=== PATIENT | female | born 1950 | race Caucasian/White ===

== ENCOUNTER 2020-10-31 18:00 | Emergency (ER) | payer MEDICARE, OTHER, SELFPAY ==
[2020-10-31 18:11] VITALS: BP 157/84; PULSE 91; RESP 18; TEMP 36.6; O2SAT 98; BMI 34.0
--- NOTE | 2020-10-31 18:40 | CTR_ITS ---
PROCEDURE INFORMATION: Exam: CT Head Without Contrast Exam date and time: 10/31/2020 6:48 PM Age: 70 years old Clinical indication: Dizziness and syncope and collapse TECHNIQUE: Imaging protocol: Computed tomography of the head without contrast. Radiation optimization: All CT scans at this facility use at least one of these dose optimization techniques: automated exposure control; mA and/or kV adjustment per patient size (includes targeted exams where dose is matched to clinical indication); or iterative reconstruction. COMPARISON: No relevant prior studies available. RADIATION DOSE METRICS: Total DLP (mGy-cm): 790.07 FINDINGS: Brain: There is marked cerebral atrophy. No intracranial hemorrhage. No intracranial mass. No midline shift of brain. No acute brain ischemia. [place] matter and white matter differentiation is preserved. Cerebral ventricles: No ventriculomegaly. Bones/joints: Unremarkable. No acute fracture. Paranasal sinuses: Visualized sinuses are unremarkable. No fluid levels. Mastoid air cells: Visualized mastoid air cells are well aerated. Vasculature: Intracranial atherosclerosis. Soft tissues: Unremarkable. CT/CT head wo con* [id number] IMPRESSION: 1. No acute intracranial abnormality. 2. Senescent brain changes. Radiation Dose CTDIVOL = (mGy): DLP = 790.07 (mGy-cm)
--- NOTE | 2020-10-31 18:40 | ECG_ITS ---
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 Measurements Intervals [place] Rate: 79 P: 20 ME: 173 QRS: -8 QRSD: 100 T: -8 QT: 401 QTc: 462 Interpretive Statements SINUS RHYTHM MODERATE VOLTAGE CRITERIA FOR LVH, CONSIDER NORMAL VARIANT [MEETS CRITERIA IN ONE OF: R(aVL), S(V1), R(V5), R(V5/V6)+S(V1)] POSSIBLE ANTERIOR MYOCARDIAL INFARCTION , OF INDETERMINATE AGE [30 ms Q WAVE IN V3/V4, OR R < 0.2 mV IN V4] INFERIOR MYOCARDIAL INFARCTION , OF INDETERMINATE AGE [40+ ms Q WAVE AND/OR ST/T ABNORMALITY IN II/aVF] Compared to ECG 10/31/2020 18:24:38 No significant changes Electronically Signed On 11-02-2020 11:00:04 CONSULTING IT ARCHITECT by Jameel Haynes M.D. [id number]
--- NOTE | 2020-10-31 18:40 | XR_ITS ---
WS: [id number] Portable AP upright chest, 10/31/2020 Clinical Data: Syncope Comparison: None. Findings: No nodules, masses or effusions are seen. The heart is slightly enlarged. The pulmonary vas cularity is not increased. No pneumonia or pneumothorax is seen. The aortic arch and descending aorta show calcification and tortuosity. XR/XR chest 1V portable [id number] Impression: Atherosclerosis and cardiomegaly.
[2020-10-31 19:23] LABS: Basophils % 0.4 %; Eosinophils % 0.5 %; Hematocrit 43.1 % (37.0-47.0); Hemoglobin 13.7 g/dL (11.5-15.3); Lymphocytes # 1.7 10^3/uL (0.8-4.8); Lymphocytes % 20.5 %; Mean Corpuscular HGB Conc 31.8 g/dL (30.0-36.0); Mean Corpuscular Hemoglobin 26.2 pg (28.0-34.0); Mean Corpuscular Volume 82.4 fL (81-99); Monocytes # 0.6 10^3/uL (0.2-0.9); Monocytes % 7.6 %; Neutrophils # 5.86 10^3/uL (1.8-7.7); Neutrophils % 70.8 %; Nucleated Red Blood Cells % 0 %; Platelet Count 379 10^3/cmm (130-400); Red Blood Count 5.23 10^6/uL (4.1-5.3); Red Cell Distribution Width 14.6 % (12.1-15.1); White Blood Count 8.3 10^3/uL (4.0-10.0)
[2020-10-31 19:30] VITALS: BP 136/67; BP 141/57; BP 154/66; PULSE 100; PULSE 84; PULSE 92
[2020-10-31 20:12] LABS: INR 0.89 (0.8-1.2); Troponin(5th) Baseline 10 ng/L (0-10)
[2020-10-31 20:20] LABS: Alanine Aminotransferase 55 U/L (0-33); Albumin Level 4.6 g/dL (3.5-5.2); Alkaline Phosphatase 80 IU/L (35-105); Anion Gap 16.8 (5-19); Aspartate Amino Transferase 40 U/L (0-32); Blood Urea Nitrogen 19 mg/dL (8-23); Calcium 9.9 mg/dL (8.5-10.5); Carbon Dioxide 28 mmol/L (22-29); Chloride 92 mmol/L (98-107); Glomerular Filtration Rate 83.2 mL/min (90-130); Glucose 148 mg/dL (65-115); NT Pro B Type Natriuretic Pept 257 pg/mL (0-125); Osmolality Calculated 281 mOsm/kg (285-295); Potassium 3.8 mmol/L (3.5-5.1); Sodium 133 mmol/L (136-145); Total Bilirubin 0.2 mg/dL (0.15-1.2); Total Protein 7.6 g/dL (6.6-8.7)
[2020-10-31 20:22] LABS: D Dimer 4.37 ug/mIFEU (0-0.59)
[2020-10-31 20:30] VITALS: BP 150/68; PULSE 85; RESP 21; O2SAT 94
--- NOTE | 2020-10-31 20:31 | CTR_ITS ---
PROCEDURE INFORMATION: Exam: CT Angiography Chest With Contrast Exam date and time: 10/31/2020 8:33 PM Age: 70 years old Clinical indication: Abnormal findings; Abnormal diagnostic tests; Elevated d-dimer; Prior surgery; Surgery type: Gb; Patient HX: Syncopal episode. Elevated d dimer. ; Additional info: Syncope, SOB TECHNIQUE: Imaging protocol: Computed tomographic angiography of the chest with contrast. 3D rendering (Not supervised by radiologist): MIP and/or 3D reconstructed images were created by the technologist. Radiation optimization: All CT scans at this facility use at least one of these dose optimization techniques: automated exposure control; mA and/or kV adjustment per patient size (includes targeted exams where dose is matched to clinical indication); or iterative reconstruction. Contrast material: VISI 320; Contrast volume: 64 ml; Contrast route: INTRAVENOUS (IV); COMPARISON: CR XR chest 1V portable [id number] 10/31/2020 7:04 PM RADIATION DOSE METRICS: Total DLP (mGy-cm): 471.81 FINDINGS: Pulmonary arteries: Pulmonary artery evaluation is diagnostic through the proximal segmental pulmonary arterial branch level. No pulmonary artery filling defects. Pulmonary artery diameter is unremarkable. Aorta: Unremarkable. No aortic aneurysm. No aortic dissection. Lungs: Mild to moderate emphysematous changes of lungs. No focal pulmonary consolidation. Minimal dependent ground-glass opacities posterior lower lobes bilaterally. No central airway lesion. Mild diffuse reticular interstitial lung change. No peripheral honeycombing. Pleural spaces: Unremarkable. No pneumothorax. No pleural effusion. Heart: Unremarkable. No cardiomegaly. No pericardial effusion. Mediastinal space: Mild hiatal hernia. Lymph nodes: Unremarkable. No enlarged lymph nodes. Gallbladder and bile ducts: Cholecystectomy. Kidneys and ureters: Cortical atrophy of both kidneys. Small simple left renal upper pole cortical cyst. Bones/joints: Unremarkable. No acute fracture. Soft tissues: Unremarkable. CT/CT angio chest PE protcl [id number] IMPRESSION: Negative for pulmonary embolism. COMMENTS: Consistent with the [employer]'s Incidental Findings Committee white paper (J Am Yolanda Radiol 2018): Any incidental renal lesion less than 1 cm or classified as too small to characterize, or any incidental cystic renal lesion characterized as simple-appearing, is likely benign. No follow-up imaging is recommended for these lesions per consensus recommendations based on imaging criteria. Radiation Dose CTDIVOL = (mGy): DLP = 471.81 (mGy-cm)
--- NOTE | 2020-10-31 20:40 | ECG_ITS ---
[facility] Test Date: 2020-10-31 Pat Name: Kenisha Lopez Department: Room: Gender: Female Acute Dialysis Nurse: : 1950 Requested By: Gonzalez Mcneal I Order Number: [id number] Fred MD: Mag Mcintosh M.D. Measurements Intervals [place] Rate: 91 P: 20 WI: 171 QRS: -1 QRSD: 90 T: -11 QT: 359 QTc: 443 Interpretive Statements SINUS RHYTHM MODERATE VOLTAGE CRITERIA FOR LVH, CONSIDER NORMAL VARIANT [MEETS CRITERIA IN ONE OF: R(aVL), S(V1), R(V5), R(V5/V6)+S(V1)] ANTERIOR MYOCARDIAL INFARCTION [40+ ms Q WAVE AND/OR ST/T ABNORMALITY IN V3/V4], OF INDETERMINATE AGE INFERIOR MYOCARDIAL INFARCTION [40+ ms Q WAVE AND/OR ST/T ABNORMALITY IN II/aVF], OF INDETERMINATE AGE No previous ECG available for comparison Electronically Signed On 10-31-2020 20:26:31 BRAILLE CODER by Mag Mcintosh M.D. [id number]
[2020-10-31] MEDS: iodixanol 320 mg/mL 100mL Btl IV (20:52)
[2020-10-31 21:04] LABS: Urine Appearance SL Hazy (CLEAR); Urine Color Yellow (Yellow)
[2020-10-31 21:05] LABS: Add Urine Microscopic? YES; Bilirubin Urine Neg (Negative); Blood Urine Neg (Negative); Glucose Urine UA Norm (Normal); Ketones Urine 1+ (Negative); Leukocyte Esterase Urine 2+ (Negative); Nitrate Urine Negative (Negative); Protein Urine Neg (Negative); Specific Gravity, Urine 1.015 (1.005-1.030); Urobilinogen Urine Norm (Negative); pH Urine 9 (5-7)
[2020-10-31 21:20] LABS: Bacteria Urine 3+ /hpf; RBC Urine 0-4 /hpf (0-2); Squamous Epithelial Cell Urine 0-4 /hpf (0-5)
[2020-10-31 21:21] LABS: Add Urine Culture? Yes; Hyaline Casts Urine 0-4 /lpf
[2020-10-31 21:30] VITALS: BP 127/68; PULSE 82; RESP 18; O2SAT 94
--- NOTE | 2020-10-31 21:45 | PC.NURSE ---
EKG done at 2145 and shown to ER doctor
[2020-10-31 22:03] LABS: Troponin 5 2HR 8.85 ng/L (0-10); Troponin 5 2HR Delta -1.15 ABS# (0-10)
--- NOTE | 2020-10-31 22:18 | ED_ITS ---
HPI - Syncope General: Chief Complaint: Syncope Stated Complaint: syncope Time Seen by Provider: 10/31/20 18:29 Source: patient and family (Daughter) Mode of arrival: ambulatory Limitations: no limitations History of Present Illness: HPI narrative: This 64-year-old female patient with a history of hypertension and diabetes was at her daughter's workplace when she started to feel unwell. The patient states that she told her daughter that she was feeling unwell and needed to sit down because she thought she might pass out but apparently she never verbalized those words and when though she thought she did. Her daughter, who had her back turned to the patient started hearing some grunting sounds on when she turned around she saw her mother was unresponsive and had an episode of urinary incontinence. The whole episode lasted about 1 to 2 minutes. When the mom woke up she was feeling very tired. The patient denies any chest pain prior to the episode or any palpitations. She denies any recent illness, denies any nausea or vomiting, denies any new medication, denies drug use. She is back to her baseline other than being really tired. MD complaint: loss of consciousness Duration of episode: 2 -: minutes(s) Description of event: incontinence Prodromal symptoms: lightheaded Context: at rest Injuries sustained associated with event: none Associated symptoms: Deny abdominal pain, chest pain, fever(s), headache(s), nausea, short of breath or vertigo Treatments prior to arrival: none Review of Systems General: Reports: 10 or more systems reviewed and unremarkable except in HPI and below Const: Denies: fever(s) Eyes: Denies: change in vision or blurry vision ENMT: Denies: throat pain, enlarged tonsils, odynophagia, hoarseness, mouth pain or swelling of lips/tongue Card: Denies: chest pain Resp: Denies: dyspnea, productive cough or non-productive cough GI: Denies: abdominal pain or nausea : Denies: flank pain, difficulty voiding, dysuria, urinary frequency, urinary urgency or urinary hesitancy Musc: Denies: neck pain, back pain or extremity swelling Skin/Breast: Denies: rash, pruritus or erythema Neuro: Denies: headache(s) or vertigo Endo: Denies: polyuria, polydipsia or tired all the time Physical Exam Const: COMMON NORMALS: no acute distress, average body habitus, patient oriented x3, no limitations, healthy appearing, alert and well nourished HENMT: COMMON NORMALS: normocephalic, atraumatic and moist oral mucous membranes HEAD & SCALP: normocephalic and atraumatic Neck/C-Spine: COMMON NORMALS: full ROM, supple, no meningeal signs, no JVD and No carotid bruits Resp: COMMON NORMALS: normal respiratory effort, No retractions, No use of accessory muscles, clear to auscultation bilaterally and percussion normal AUSCULTATION: clear to auscultation bilaterally PERCUSSION: percussion normal Cardio: COMMON NORMALS: no JVD, regular rate, regular rhythm, S1 normal heart sound present, S2 normal heart sound present, No gallops present (Cardio), No clicks present (Cardio), No murmurs present (Cardio), No rub (Cardio) and Peripheral pulses 2+ throughout RATE: regular rate RHYTHM: regular rhythm HEART SOUNDS: S1 normal heart sound present and S2 normal heart sound present PERIPHERAL PULSES: Peripheral pulses 2+ throughout GI: COMMON NORMALS: Normal to inspection, nondistended, normoactive bowel sounds present, Soft to palpation, non-tender, No hepatosplenomegaly present, no masses and no bruits PALPATION: Yes Soft to palpation and Yes No hepatosplenomegaly present Extremity: COMMON NORMALS: normal to inspection, full ROM, capillary refill normal, no calf tenderness and no pedal edema Neuro: COMMON NORMALS: patient oriented x3 SENSORIUM/ORIENTATION: Yes alert MENINGEAL SIGNS: Yes no meningeal signs Skin: COMMON NORMALS: no rashes or lesions noted, no wounds, turgor normal, no jaundice, no petechiae and no mottling GENERAL SKIN EXAM: no rashes or lesions noted and turgor normal Course Reevaluation(s): Reevaluation #1: Discussed her lab and imaging findings with her. I had been updating her throughout her ED stay on the results of her lab and imaging findings. Negative CTA, negative high-sensitivity troponin x2. I believe her symptoms are very likely due to a seizure since she had urinary incontinence. Since this is her first episode and evaluation is unremarkable we will not pursue it further. However she is advised that if she has another episode she would likely need to be started on antiepileptics as well as more detailed work- up including an EEG. UA is suggestive of a UTI. She is given a dose of intravenous ceftriaxone in the emergency department and discharged home on oral antibiotic. She voiced understanding and is in agreement with the plan. Time: 22:19 Vital Signs: Vital signs: Vital Signs Temperature 97.9 F 10/31/20 18:11 Pulse Rate 84 10/31/20 19:30 Respiratory Rate 18 10/31/20 18:11 Blood Pressure 141/57 10/31/20 19:30 Pulse Oximetry 98 10/31/20 18:11 MDM - Syncope MDM Narrative: Medical decision making narrative: 70-year-old female patient who was brought into the emergency department after an episode of syncope. From the description of the surrounding events I believe the patient may have had a seizure. She has no prior history of seizures. She denies any new medication or drug use. Evaluation in the emergency department was unremarkable other than she has a UTI. She was given a dose of intravenous ceftriaxone in the emergency department and discharged home on oral Augmentin. She is advised that if she has repeat episodes she may need further work-up and possibly antiepileptics. Medical Records: Attestation: I reviewed the patient's medical records. Lab Data: Attestation: I reviewed the patient's lab results. Labs: Lab Results 10/31/20 10/31/20 10/31/20 Range/Units 19:15 19:15 19:15 WBC 8.3 (4.0-10.0) 10^3/ uL RBC 5.23 (4.1-5.3) 10^6/u L Hgb 13.7 (11.5-15.3) g/dL Hct 43.1 (37.0-47.0) % MCV 82.4 (81-99) fL MCH 26.2 L (28.0-34.0) pg MCHC 31.8 (30.0-36.0) g/dL RDW 14.6 (12.1-15.1) % Plt Count 379 (130-400) 10^3/c mm MPV 10.0 (7.4-10.4) fL Neut % (Auto) 70.8 % Lymph % (Auto) 20.5 % Kent % (Auto) 7.6 % Eos % (Auto) 0.5 % Baso % (Auto) 0.4 % Neut # (Auto) 5.86 (1.8-7.7) 10^3/u L Lymph # (Auto) 1.7 (0.8-4.8) 10^3/u L Kent # (Auto) 0.6 (0.2-0.9) 10^3/u L Eos # (Auto) 0.0 (0.0-0.8) 10^3/u L Baso # (Auto) 0.0 (0.0-0.1) 10^3/u L Nucleated RBC % (a uto) 0 % Nucleated RBCs # 0.0 /100WBC PT 12.40 (12.1-14.9) SECO NDS INR 0.89 (0.8-1.2) D-Dimer 4.37 H (0-0.59) ug/mIFE U Sodium 133 L (136-145) mmol/L Potassium 3.8 (3.5-5.1) mmol/L Chloride 92 L (98-107) mmol/L Carbon Dioxide 28 (22-29) mmol/L Anion Gap 16.8 (5-19) BUN 19 (8-23) mg/dL Creatinine 0.7 (0.5-0.9) mg/dL GFR Calculation 83.2 L (90-130) mL/min Glucose 148 H (65-115) mg/dL Calculated Osmolal ity 281 L (285-295) mOsm/k g Calcium 9.9 (8.5-10.5) mg/dL Total Bilirubin 0.2 (0.15-1.2) mg/dL AST 40 H (0-32) U/L ALT 55 H (0-33) U/L Alkaline Phosphata se 80 (35-105) IU/L Troponin T Baselin e (0-10) ng/L Troponin T 120 Min [place] (0-10) ng/L Delta Troponin T (0-10) ABS# NT-Pro-B Natriuret Pep 257 H (0-125) pg/mL Total Protein 7.6 (6.6-8.7) g/dL Albumin 4.6 (3.5-5.2) g/dL Globulin 3.0 (1.3-4.6) g/dL Urine Color (Yellow) Urine Appearance (CLEAR) Urine pH (5-7) Ur Specific Gravit y (1.005-1.030) Urine Protein (Negative) Urine Glucose (UA) (Normal) Urine Ketones (Negative) Urine Blood (Negative) Urine Nitrate (Negative) Urine Bilirubin (Negative) Urine Urobilinogen (Negative) mg/dL Ur Leukocyte Marlin ase (Negative) Urine RBC (0-2) /hpf Urine WBC (0-5) /hpf Ur Squamous Epith Cells (0-5) /hpf Amorphous Sediment Urine Bacteria (NONE) /hpf Hyaline Casts /lpf 10/31/20 10/31/20 10/31/20 Range/Units 19:15 19:41 21:16 WBC (4.0-10.0) 10^3/ uL RBC (4.1-5.3) 10^6/u L Hgb (11.5-15.3) g/dL Hct (37.0-47.0) % MCV (81-99) fL MCH (28.0-34.0) pg MCHC (30.0-36.0) g/dL RDW (12.1-15.1) % Plt Count (130-400) 10^3/c mm MPV (7.4-10.4) fL Neut % (Auto) % Lymph % (Auto) % Kent % (Auto) % Eos % (Auto) % Baso % (Auto) % Neut # (Auto) (1.8-7.7) 10^3/u L Lymph # (Auto) (0.8-4.8) 10^3/u L Kent # (Auto) (0.2-0.9) 10^3/u L Eos # (Auto) (0.0-0.8) 10^3/u L Baso # (Auto) (0.0-0.1) 10^3/u L Nucleated RBC % (a uto) % Nucleated RBCs # /100WBC PT (12.1-14.9) SECO NDS INR (0.8-1.2) D-Dimer (0-0.59) ug/mIFE U Sodium (136-145) mmol/L Potassium (3.5-5.1) mmol/L Chloride (98-107) mmol/L Carbon Dioxide (22-29) mmol/L Anion Gap (5-19) BUN (8-23) mg/dL Creatinine (0.5-0.9) mg/dL GFR Calculation (90-130) mL/min Glucose (65-115) mg/dL Calculated Osmolal ity (285-295) mOsm/k g Calcium (8.5-10.5) mg/dL Total Bilirubin (0.15-1.2) mg/dL AST (0-32) U/L ALT (0-33) U/L Alkaline Phosphata se (35-105) IU/L Troponin T Baselin e 10 (0-10) ng/L Troponin T 120 Min [place] 8.85 (0-10) ng/L Delta Troponin T -1.15 L (0-10) ABS# NT-Pro-B Natriuret Pep (0-125) pg/mL Total Protein (6.6-8.7) g/dL Albumin (3.5-5.2) g/dL Globulin (1.3-4.6) g/dL Urine Color Yellow (Yellow) Urine Appearance Sl hazy (CLEAR) Urine pH 9 H (5-7) Ur Specific Gravit y 1.015 (1.005-1.030) Urine Protein Neg (Negative) Urine Glucose (UA) Norm (Normal) Urine Ketones 1+ H (Negative) Urine Blood Neg (Negative) Urine Nitrate Negative (Negative) Urine Bilirubin Neg (Negative) Urine Urobilinogen Norm (Negative) mg/dL Ur Leukocyte Marlin ase 2+ H (Negative) Urine RBC 0-4 H (0-2) /hpf Urine WBC 10-15 H (0-5) /hpf Ur Squamous Epith Cells 0-4 H (0-5) /hpf Amorphous Sediment Not Reportable Urine Bacteria 3+ H (NONE) /hpf Hyaline Casts 0-4 H /lpf Imaging Data^: CTA Chest: Attestation: I personally reviewed and interpreted this imaging study as follows: Radiologist's impression: [address] [place] [address] CT Scan Report Signed Patient: Kenisha Lopez #: [id number] : 2Acct#:[id number] Age/Sex: 70 / FADM Date: 10/31/20 Loc: ERRoom/Bed: Attending Dr: Ordering Provider/Ordering MD: Gonzalez Mcneal MD, [facility] [place] Date of Service: 10/31/20 Procedure(s): CT angio chest PE protcl [id number] Accession Number(s): [id number] Report Number: [id number] PROCEDURE INFORMATION: Exam: CT Angiography Chest With Contrast Exam date and time: 10/31/2020 8:33 PM Age: 70 years old Clinical indication: Abnormal findings; Abnormal diagnostic tests; Elevated d-dimer; Prior surgery; Surgery type: Gb; Patient HX: Syncopal episode. Elevated d dimer. ; Additional info: Syncope, SOB TECHNIQUE: Imaging protocol: Computed tomographic angiography of the chest with contrast. 3D rendering (Not supervised by radiologist): MIP and/or 3D reconstructed images were created by the technologist. Radiation optimization: All CT scans at this facility use at least one of these dose optimization techniques: automated exposure control; mA and/or kV adjustment per patient size (includes targeted exams where dose is matched to clinical indication); or iterative reconstruction. Contrast material: VISI 320; Contrast volume: 64 ml; Contrast route: INTRAVENOUS (IV); COMPARISON: CR XR chest 1V portable [id number] 10/31/2020 7:04 PM RADIATION DOSE METRICS: Total DLP (mGy-cm): 471.81 FINDINGS: Pulmonary arteries: Pulmonary artery evaluation is diagnostic through the proximal segmental pulmonary arterial branch level. No pulmonary artery filling defects. Pulmonary artery diameter is unremarkable. Aorta: Unremarkable. No aortic aneurysm. No aortic dissection. Lungs: Mild to moderate emphysematous changes of lungs. No focal pulmonary consolidation. Minimal dependent ground-glass opacities posterior lower lobes bilaterally. No central airway lesion. Mild diffuse reticular interstitial lung change. No peripheral honeycombing. Pleural spaces: Unremarkable. No pneumothorax. No pleural effusion. Heart: Unremarkable. No cardiomegaly. No pericardial effusion. Mediastinal space: Mild hiatal hernia. Lymph nodes: Unremarkable. No enlarged lymph nodes. Gallbladder and bile ducts: Cholecystectomy. Kidneys and ureters: Cortical atrophy of both kidneys. Small simple left renal upper pole cortical cyst. Bones/joints: Unremarkable. No acute fracture. Soft tissues: Unremarkable. CT/CT angio chest PE protcl [id number] IMPRESSION: Negative for pulmonary embolism. COMMENTS: Consistent with the [employer]'s Incidental Findings Committee white paper (J Am Yolanda Radiol 2018): Any incidental renal lesion less than 1 cm or classified as too small to characterize, or any incidental cystic renal lesion characterized as simple-appearing, is likely benign. No follow-up imaging is recommended for these lesions per consensus recommendations based on imaging criteria. Radiation Dose CTDIVOL = (mGy): DLP = 471.81 (mGy-cm) Dictated By:Jaun Cid Signed By:Harish Cid Date/Time:10/31/202112 DD/ 11 CT Head: Attestation: I personally reviewed and interpreted this imaging study as follows: Radiologist's impression: [employer] [address] [address] [address] Scan Report Signed Patient: Kenisha Lopez #: [id number] : 1950cct#:[id number] Age/Sex: 70 / FADM Date: 10/31/20 Loc: ERRoom/Bed: Attending Dr: Ordering Provider/Ordering MD: Gonzalez Mcneal MD, [facility] [place] Date of Service: 10/31/20 Procedure(s): CT head wo con* [id number] Accession Number(s): [id number] Report Number: [id number] PROCEDURE INFORMATION: Exam: CT Head Without Contrast Exam date and time: 10/31/2020 6:48 PM Age: 70 years old Clinical indication: Dizziness and syncope and collapse TECHNIQUE: Imaging protocol: Computed tomography of the head without contrast. Radiation optimization: All CT scans at this facility use at least one of these dose optimization techniques: automated exposure control; mA and/or kV adjustment per patient size (includes targeted exams where dose is matched to clinical indication); or iterative reconstruction. COMPARISON: No relevant prior studies available. RADIATION DOSE METRICS: Total DLP (mGy-cm): 790.07 FINDINGS: Brain: There is marked cerebral atrophy. No intracranial hemorrhage. No intracranial mass. No midline shift of brain. No acute brain ischemia. [place] matter and white matter differentiation is preserved. Cerebral ventricles: No ventriculomegaly. Bones/joints: Unremarkable. No acute fracture. Paranasal sinuses: Visualized sinuses are unremarkable. No fluid levels. Mastoid air cells: Visualized mastoid air cells are well aerated. Vasculature: Intracranial atherosclerosis. Soft tissues: Unremarkable. CT/CT head wo con* [id number] IMPRESSION: 1. No acute intracranial abnormality. 2. Senescent brain changes. Radiation Dose CTDIVOL = (mGy): DLP = 790.07 (mGy-cm) Dictated By:Jaun Cid Signed By:Harish Cid Date/Time:10/31/201910 DD/ 09 EKG Data^: EKG 1: Attestation: I personally reviewed and interpreted this EKG as follows: EKG interpretation date: 10/31/20 EKG interpretation time: 18:24 Prior EKG tracings: not available for review Interpretation: Sinus rhythm. Heart rate 91 bpm. Q wave in aVF. No ST changes. EKG 2: Attestation: I personally reviewed and interpreted this EKG as follows: EKG interpretation date: 10/31/20 EKG interpretation time: 21:41 Prior EKG tracings: available for review Interpretation: Sinus rhythm. Heart rate 79 bpm. Q wave in aVF. No significant change from earlier today Discharge Plan Discharge Patient Disposition: Home Clinical Impression: Seizure UTI (urinary tract infection) Qualifiers: Urinary tract infection type: acute cystitis Hematuria presence: without hematuria Qualified Code(s): N30.00 - Acute cystitis without hematuria Condition: Stable Prescriptions: New Augmentin 500-125 mg tablet 1 tab PO BID Qty: 10 RF: 0 Continued atorvastatin 80 mg tablet 80 mg PO DAILY@1700 RF: 0 metformin 1,000 mg tablet 1,000 mg PO BID@0630,1830 RF: 0 Aleve 220 mg Tablet 200 - 400 mg PO Q6H PRN (Reason: Pain) RF: 0 hydrochlorothiazide 25 mg tablet 25 mg PO DAILY@0630 RF: 0 lisinopril 40 mg tablet 40 mg PO DAILY@0630 RF: 0 jrxvjlmu-vkqzutc-rcgl-lutein Tablet 1 tab PO DAILY@0630 RF: 0 Discharge Orders: Discharge ED (Routine); Ordered 10/31/20 Ordered By: Gonzalez Mcneal Referrals: Uvaldo Mcfadden DO [Primary Care Provider] - 1-3 days Discharge Diet: Usual diet Discharge Activity: Increase activity as tolerated Patient Instructions: Urinary Tract Infection in Women (ED), New-Onset Seizure in Adults (ED) Activity Restrictions/Additional Instructions: Return for any new or worsening symptoms. Follow-up with your primary care provider within 3 days. Take antibiotic as prescribed. Drink plenty of fluids to keep well-hydrated. If you have a repeat episode you may need further testing including an EEG and be started on seizure medication. Coding Level of Care Code ED Oceanographic Meteorologist for Nilton Mckeon
[2020-10-31] MEDS: cefTRIAXone 1,000 MG in sodium chloride 0.9% (plus) 50 ML 100 MG IV (22:28)
[2020-10-31 22:55] VITALS: BP 132/55; PULSE 78; RESP 20; O2SAT 94
== END 2020-10-31 22:55 | disposition home or self-care (01) ==
PROVIDERS: Emergency Provider Family Medicine; PCP Internal Medicine
DX: R56.9 Unspecified convulsions (principal); N30.00 Acute cystitis without hematuria; Z79.84 Long term (current) use of oral hypoglycemic drugs; I70.0 Atherosclerosis of aorta
CPT/HCPCS: 12345; 70450; 71045; 71275; 80053; 81001; 83880; 84484; 85025; 85378; 85610; 87077; 87086; 87186; 93005; 96365; 99283; 99284; J0696; Q9967

== ENCOUNTER 2021-02-19 11:29 | Emergency (ER) | payer MEDICARE, OTHER, SELFPAY ==
[2021-02-19 11:37] VITALS: BP 121/62; PULSE 92; RESP 16; TEMP 36.2; O2SAT 96; BMI 30.9
[2021-02-19 11:46] VITALS: O2SAT 96
--- NOTE | 2021-02-19 11:47 | CT_ITS ---
WS: [id number] CT CHEST ANGIOGRAPHY WITH REFORMATS HISTORY: syncope, EKG concerning for PE TECHNIQUE: Contiguous axial images are obtained through the chest during arterial injection of intrav enous contrast. Images are reconstructed to evaluate the pulmonary arteries. MIP imaging also reviewe d. All CT scans at [facility] use at least one of these dose optimization techniques: aut omated exposure control; mA and/or kV adjustment per patient size (includes targeted exams where dose is matched to clinical indication); or iterative reconstruction. CONTRAST: Omnipaque 350; 95 mL IV. DLP: 1329.75 mGy.cm COMPARISON: 10/31/2020 Adequate opacification of the pulmonary arteries. No filling defects or pulmonary embolism. Normal si ze pulmonary artery. Mild atherosclerosis aorta. Mildly enlarged heart. No pericardial or pleural eff usion. Hyperexpanded lungs with emphysema. No dense consolidation or pneumonia. Indeterminate hilar lymph no ashish with the largest measuring 11 mm at the RIGHT hilum. Small hiatal hernia. No adrenal mass. Liver is negative as visualized. No destructive bone lesions. CT/CT angio chest PE protcl [id number] IMPRESSION: 1. No pulmonary embolism. 2. Mild cardiomegaly. 3. No pneumonia.
--- NOTE | 2021-02-19 11:50 | ECG_ITS ---
[facility] Test Date: 2021-02-19 Pat Name: Kenisha Lopez Department: Room: Gender: Female Plugger: : 1950 Requested By: Gonzalez Mcneal I Order Number: [id number] Fred MD: Jameel Haynes M.D. Measurements Intervals [place] Rate: 91 P: 29 MI: 165 QRS: 5 QRSD: 87 T: -10 QT: 358 QTc: 443 Interpretive Statements SINUS RHYTHM PROBABLE INFERIOR MYOCARDIAL INFARCTION , OF INDETERMINATE AGE [35 ms Q WAVE IN II/aVF] Compared to ECG 10/31/2020 21:40:58 No significant changes Electronically Signed On 02-19-2021 17:37:00 CDT by Jameel Haynes M.D. [id number]
[2021-02-19 11:55] VITALS: BP 121/62; BP 124/56; BP 124/59; PULSE 94; PULSE 95
--- NOTE | 2021-02-19 11:55 | ED_ITS ---
HPI - Syncope General: Chief Complaint: Syncope Stated Complaint: SYNCOPE Time Seen by Provider: 02/19/21 11:30 Source: patient and family () Mode of arrival: EMS Limitations: no limitations History of Present Illness: HPI narrative: This is a 70-year-old female patient with a history of hypertension and diabetes mellitus, she presents to the emergency department from her PCPs office after a syncopal event. Patient states that 2 days ago she exerted herself and was outdoors most of the day and felt she may have been dehydrated. She had a presyncopal event at that time and since then has been extremely weak. She denies any dizziness, chest pain, nausea, diaphoresis, urinary symptoms. She has no headache. She has no prior history of PE but EKG findings on the ambulance showed the S1Q3T3 pattern suggestive of cor pulmonale from PE. complaint: loss of consciousness Onset (ago): minute(s) (30) -: second(s) Prodromal symptoms: none Witnessed: Yes - by Other (by PCP) Context: at rest Injuries sustained associated with event: none Associated symptoms: Reports weakness Treatments prior to arrival: none Review of Systems General: Reports: 10 or more systems reviewed and unremarkable except in HPI and below PFSH ED PFSH: Social History (Reviewed 02/19/21 @ 12:09 by Gonzalez Mcneal MD, [facility]) Smoking and tobacco status: never smoked Alcohol intake: never Physical Exam Const: COMMON NORMALS: no acute distress, average body habitus, patient oriented x3, no limitations, healthy appearing, alert and well nourished HENMT: COMMON NORMALS: normocephalic, atraumatic and moist oral mucous membranes HEAD & SCALP: normocephalic and atraumatic Neck/C-Spine: COMMON NORMALS: no meningeal signs and no JVD Chest: COMMONS NORMALS: normal inspection of the chest and normal palpation of entire chest wall Resp: COMMON NORMALS: normal respiratory effort, No retractions, No use of accessory muscles, clear to auscultation bilaterally and percussion normal AUSCULTATION: clear to auscultation bilaterally PERCUSSION: percussion normal Cardio: COMMON NORMALS: no JVD, regular rate, regular rhythm, S1 normal heart sound present, S2 normal heart sound present, No gallops present (Cardio), No clicks present (Cardio), No murmurs present (Cardio), No rub (Cardio) and Peripheral pulses 2+ throughout RATE: regular rate RHYTHM: regular rhythm HEART SOUNDS: S1 normal heart sound present and S2 normal heart sound present PERIPHERAL PULSES: Peripheral pulses 2+ throughout GI: COMMON NORMALS: Normal to inspection, nondistended, normoactive bowel sounds present, Soft to palpation, non-tender, No hepatosplenomegaly present, no masses and no bruits PALPATION: Yes Soft to palpation and Yes No hepatosplenomegaly present Extremity: COMMON NORMALS: normal to inspection, full ROM, capillary refill normal, no calf tenderness and no pedal edema Neuro: COMMON NORMALS: patient oriented x3 SENSORIUM/ORIENTATION: Yes alert MENINGEAL SIGNS: Yes no meningeal signs Course Reevaluation(s): Reevaluation #1: Discussed her lab and imaging findings with her. Also discussed her repeat lactic acid with her. She likely is dehydrated and that is responsible for her symptoms. No PE. She will be discharged home and advised to keep well-hydrated. She voiced understanding and is in agreement with the plan Time: 17:20 Vital Signs: Vital signs: Vital Signs Temperature 97.2 F L 02/19/21 11:37 Pulse Rate 85 02/19/21 17:34 Respiratory Rate 18 02/19/21 17:34 Blood Pressure 149/67 02/19/21 17:34 Pulse Oximetry 96 02/19/21 17:34 MDM - Syncope MDM Narrative: Medical decision making narrative: 70-year-old female patient was brought into the emergency department after a syncopal events. There was concern for PE based on her EKG findings. However CTA was negative for PE. Evaluation in the emergency department showed lactic acidosis but no signs of obvious infection. She was given IV fluids after which her lactic acidosis resolved. She is likely dehydrated which is responsible for her symptoms. Orthostatic vital signs were unremarkable. She is discharged home with no new orders. Medical Records: Attestation: I reviewed the patient's medical records. Lab Data: Attestation: I reviewed the patient's lab results. Labs: Lab Results 02/19/21 02/19/21 02/19/21 Range/Units 12:40 12:40 12:40 WBC 8.6 (4.0-10.0) 10^3/ uL RBC 4.34 (4.1-5.3) 10^6/u L Hgb 11.8 (11.5-15.3) g/dL Hct 36.2 L (37.0-47.0) % MCV 83.4 (81-99) fL MCH 27.2 L (28.0-34.0) pg MCHC 32.6 (30.0-36.0) g/dL RDW 14.7 (12.1-15.1) % Plt Count 278 (130-400) 10^3/c mm MPV 10.2 (7.4-10.4) fL Neut % (Auto) 87.9 % Lymph % (Auto) 6.7 % Hemphill % (Auto) 4.2 % Eos % (Auto) 0.1 % Baso % (Auto) 0.4 % Neut # (Auto) 7.53 (1.8-7.7) 10^3/u L Lymph # (Auto) 0.6 L (0.8-4.8) 10^3/u L Hemphill # (Auto) 0.4 (0.2-0.9) 10^3/u L Eos # (Auto) 0.0 (0.0-0.8) 10^3/u L Baso # (Auto) 0.0 (0.0-0.1) 10^3/u L Nucleated RBC % (a uto) 0 % Nucleated RBCs # 0.0 /100WBC PT 12.80 (12.1-14.9) SECO NDS INR 0.93 (0.8-1.2) Sodium 133 L (136-145) mmol/L Potassium 4.3 (3.5-5.1) mmol/L Chloride 95 L (98-107) mmol/L Carbon Dioxide 24 (22-29) mmol/L Anion Gap 18.3 (5-19) BUN 17 (8-23) mg/dL Creatinine 0.5 (0.5-0.9) mg/dL GFR Calculation 122.7 (90-130) mL/min Glucose 265 H (65-115) mg/dL Calculated Osmolal ity 287 (285-295) mOsm/k g Lactate (0.5-2.2) mmol/L Calcium 7.9 L (8.5-10.5) mg/dL Total Bilirubin 0.3 (0.15-1.2) mg/dL AST 37 H (0-32) U/L ALT 38 H (0-33) U/L Alkaline Phosphata se 79 (35-105) IU/L Creatine Kinase 246 H (26-192) U/L Troponin T Baselin e (0-10) ng/L Troponin T 120 Min [place] (0-10) ng/L Delta Troponin T (0-10) ABS# C-Reactive Protein 27.8 H (0.0-4.9) mg/L Total Protein 6.3 L (6.6-8.7) g/dL Albumin 4.0 (3.5-5.2) g/dL Globulin 2.3 (1.3-4.6) g/dL Lipase 30 (13-60) U/L TSH 1.00 (0.27-4.20) uIU/ mL Urine Color (Yellow) Urine Appearance (CLEAR) Urine pH (5-7) Ur Specific Gravit y (1.005-1.030) Urine Protein (Negative) Urine Glucose (UA) (Normal) Urine Ketones (Negative) Urine Blood (Negative) Urine Nitrate (Negative) Urine Bilirubin (Negative) Urine Urobilinogen (Negative) mg/dL Ur Leukocyte Marlin ase (Negative) 02/19/21 02/19/21 02/19/21 Range/Units 12:40 12:40 14:14 WBC (4.0-10.0) 10^3/ uL RBC (4.1-5.3) 10^6/u L Hgb (11.5-15.3) g/dL Hct (37.0-47.0) % MCV (81-99) fL MCH (28.0-34.0) pg MCHC (30.0-36.0) g/dL RDW (12.1-15.1) % Plt Count (130-400) 10^3/c mm MPV (7.4-10.4) fL Neut % (Auto) % Lymph % (Auto) % [place] % (Auto) % Eos % (Auto) % Baso % (Auto) % Neut # (Auto) (1.8-7.7) 10^3/u L Lymph # (Auto) (0.8-4.8) 10^3/u L [place] # (Auto) (0.2-0.9) 10^3/u L Eos # (Auto) (0.0-0.8) 10^3/u L Baso # (Auto) (0.0-0.1) 10^3/u L Nucleated RBC % (a uto) % Nucleated RBCs # /100WBC PT (12.1-14.9) SECO NDS INR (0.8-1.2) Sodium (136-145) mmol/L Potassium (3.5-5.1) mmol/L Chloride (98-107) mmol/L Carbon Dioxide (22-29) mmol/L Anion Gap (5-19) BUN (8-23) mg/dL Creatinine (0.5-0.9) mg/dL GFR Calculation (90-130) mL/min Glucose (65-115) mg/dL Calculated Osmolal ity (285-295) mOsm/k g Lactate 3.6 H (0.5-2.2) mmol/L Calcium (8.5-10.5) mg/dL Total Bilirubin (0.15-1.2) mg/dL AST (0-32) U/L ALT (0-33) U/L Alkaline Phosphata se (35-105) IU/L Creatine Kinase (26-192) U/L Troponin T Baselin e 10 (0-10) ng/L Troponin T 120 Min [place] (0-10) ng/L Delta Troponin T (0-10) ABS# C-Reactive Protein (0.0-4.9) mg/L Total Protein (6.6-8.7) g/dL Albumin (3.5-5.2) g/dL Globulin (1.3-4.6) g/dL Lipase (13-60) U/L TSH (0.27-4.20) uIU/ mL Urine Color Yellow (Yellow) Urine Appearance Clear (CLEAR) Urine pH 7 (5-7) Ur Specific Gravit y 1.010 (1.005-1.030) Urine Protein Neg (Negative) Urine Glucose (UA) Norm (Normal) Urine Ketones Negative (Negative) Urine Blood Neg (Negative) Urine Nitrate Negative (Negative) Urine Bilirubin Neg (Negative) Urine Urobilinogen Norm (Negative) mg/dL Ur Leukocyte Marlin ase Negative (Negative) 02/19/21 02/19/21 Range/Units 15:26 16:45 WBC (4.0-10.0) 10^3/ uL RBC (4.1-5.3) 10^6/u L Hgb (11.5-15.3) g/dL Hct (37.0-47.0) % MCV (81-99) fL MCH (28.0-34.0) pg MCHC (30.0-36.0) g/dL RDW (12.1-15.1) % Plt Count (130-400) 10^3/c mm MPV (7.4-10.4) fL Neut % (Auto) % Lymph % (Auto) % [place] % (Auto) % Eos % (Auto) % Baso % (Auto) % Neut # (Auto) (1.8-7.7) 10^3/u L Lymph # (Auto) (0.8-4.8) 10^3/u L [place] # (Auto) (0.2-0.9) 10^3/u L Eos # (Auto) (0.0-0.8) 10^3/u L Baso # (Auto) (0.0-0.1) 10^3/u L Nucleated RBC % (a uto) % Nucleated RBCs # /100WBC PT (12.1-14.9) SECO NDS INR (0.8-1.2) Sodium (136-145) mmol/L Potassium (3.5-5.1) mmol/L Chloride (98-107) mmol/L Carbon Dioxide (22-29) mmol/L Anion Gap (5-19) BUN (8-23) mg/dL Creatinine (0.5-0.9) mg/dL GFR Calculation (90-130) mL/min Glucose (65-115) mg/dL Calculated Osmolal ity (285-295) mOsm/k g Lactate 1.7 (0.5-2.2) mmol/L Calcium (8.5-10.5) mg/dL Total Bilirubin (0.15-1.2) mg/dL AST (0-32) U/L ALT (0-33) U/L Alkaline Phosphata se (35-105) IU/L Creatine Kinase (26-192) U/L Troponin T Baselin e (0-10) ng/L Troponin T 120 Min [place] 6.45 (0-10) ng/L Delta Troponin T -3.55 L (0-10) ABS# C-Reactive Protein (0.0-4.9) mg/L Total Protein (6.6-8.7) g/dL Albumin (3.5-5.2) g/dL Globulin (1.3-4.6) g/dL Lipase (13-60) U/L TSH (0.27-4.20) uIU/ mL Urine Color (Yellow) Urine Appearance (CLEAR) Urine pH (5-7) Ur Specific Gravit y (1.005-1.030) Urine Protein (Negative) Urine Glucose (UA) (Normal) Urine Ketones (Negative) Urine Blood (Negative) Urine Nitrate (Negative) Urine Bilirubin (Negative) Urine Urobilinogen (Negative) mg/dL Ur Leukocyte Marlin ase (Negative) Imaging Data^: CTA Chest: Attestation: I personally reviewed and interpreted this imaging study as follows: Radiologist's impression: [address] [id number] Scan ReportSigned Patient: Kenisha Lopez #: [id number]: 1950cc#:[id number]/Sex: 70 / FADM Date: 02/19/21Loc: ERRoom/Bed:Attending Dr: Ordering Provider/Ordering MD: Gonzalez Mcneal MD, [facility] Date of Service: 02/19/21 Procedure(s): CT angio chest PE protcl [id number] Accession Number(s): [id number] Report Number: [id number] WS: [id number] CT CHEST ANGIOGRAPHY WITH REFORMATS HISTORY: syncope, EKG concerning for PE TECHNIQUE: Contiguous axial images are obtained through the chest during arterial injection of intravenous contrast. Images are reconstructed to evaluate the pulmonary arteries. MIP imaging also reviewed. All CT scans at [facility] use at least one of these dose optimization techniques: automated exposure control; mA and/or kV adjustment per patient size (includes targeted exams where dose is matched to clinical indication); or iterative reconstruction. CONTRAST: Omnipaque 350; 95 mL IV. DLP: 1329.75 mGy.cm COMPARISON: 10/31/2020 Adequate opacification of the pulmonary arteries. No filling defects or pulmonary embolism. Normal size pulmonary artery. Mild atherosclerosis aorta. Mildly enlarged heart. No pericardial or pleural effusion. Hyperexpanded lungs with emphysema. No dense consolidation or pneumonia. Indeterminate hilar lymph nodes with the largest measuring 11 mm at the RIGHT hilum. Small hiatal hernia. No adrenal mass. Liver is negative as visualized. No destructive bone lesions. CT/CT angio chest PE protcl [id number] IMPRESSION: 1. No pulmonary embolism. 2. Mild cardiomegaly. 3. No pneumonia. Dictated By:Nancy Mcgill DOSigned By:Nancy Mcgill DOSigned Date/Time:02/19/214DD/ 20 EKG Data^: EKG 1: Attestation: I personally reviewed and interpreted this EKG as follows: EKG interpretation date: 02/19/21 EKG interpretation time: 12:25 Prior EKG tracings: not available for review Interpretation: Sinus rhythm. Heart rate 91 bpm Q waves in leads III, aVF, T wave inversion in lead III. No large S wave in lead I No ST changes. EKG 2: Attestation: I personally reviewed and interpreted this EKG as follows: EKG interpretation date: 02/19/21 EKG interpretation time: 14:22 Prior EKG tracings: available for review Interpretation: Sinus rhythm. Heart rate 90 bpm. Q wave in leads III and aVF. No ST changes. No significant change from earlier today. Discharge Plan Discharge Patient Disposition: Home Clinical Impression: Near syncope, Acute dehydration Heat exhaustion Qualifiers: Encounter type: initial encounter Qualified Code(s): T67.5XXA - Heat exhaustion, unspecified, initial encounter Condition: Stable Prescriptions: Continued atorvastatin 80 mg tablet 80 mg PO DAILY@1700 RF: 0 metformin 1,000 mg tablet 1,000 mg PO BID@0630,1830 RF: 0 naproxen sodium [Aleve] 220 mg Tablet 200 - 400 mg PO Q6H PRN (Reason: Pain) RF: 0 hydrochlorothiazide 25 mg tablet 25 mg PO DAILY@0630 RF: 0 lisinopril 40 mg tablet 40 mg PO DAILY@0630 RF: 0 biyydlay-mggvdzs-syow-lutein Tablet 1 tab PO DAILY@0630 RF: 0 Nexium 24HR 20 mg Capsule,Delayed Release(Dr/Ec) 20 mg PO DAILY PRN (Reason: Heartburn) RF: 0 citalopram 10 mg tablet 10 mg PO DAILY@0630 RF: 0 Discharge Orders: Discharge ED (Routine); Ordered 02/19/21 Ordered By: Gonzalez Mcneal Referrals: Uvaldo Mcfadden DO [Primary Care Provider] - 1-3 days Discharge Diet: Usual diet Discharge Activity: Increase activity as tolerated Patient Instructions: Dehydration (ED), Heat Exhaustion (ED), Near Syncope (ED) Activity Restrictions/Additional Instructions: Return for any new or worsening symptoms. Follow-up with your primary care provider within 3 days. Drink plenty of fluids to keep well-hydrated. Coding Level of Care Code ED Marketing And Outreach Coordinator for [facility] Fwd Exam Comprehensive
[2021-02-19 12:54] LABS: Basophils % 0.4 %; Eosinophils % 0.1 %; Hematocrit 36.2 % (37.0-47.0); Hemoglobin 11.8 g/dL (11.5-15.3); Lymphocytes # 0.6 10^3/uL (0.8-4.8); Lymphocytes % 6.7 %; Mean Corpuscular HGB Conc 32.6 g/dL (30.0-36.0); Mean Corpuscular Hemoglobin 27.2 pg (28.0-34.0); Mean Corpuscular Volume 83.4 fL (81-99); Mean Platelet Volume 10.2 fL (7.4-10.4); Monocytes # 0.4 10^3/uL (0.2-0.9); Monocytes % 4.2 %; Neutrophils # 7.53 10^3/uL (1.8-7.7); Neutrophils % 87.9 %; Nucleated Red Blood Cells % 0 %; Platelet Count 278 10^3/cmm (130-400); Red Blood Count 4.34 10^6/uL (4.1-5.3); Red Cell Distribution Width 14.7 % (12.1-15.1); White Blood Count 8.6 10^3/uL (4.0-10.0)
[2021-02-19 12:59] LABS: INR 0.93 (0.8-1.2)
[2021-02-19 13:12] LABS: Alanine Aminotransferase 38 U/L (0-33); Alkaline Phosphatase 79 IU/L (35-105); Anion Gap 18.3 (5-19); Aspartate Amino Transferase 37 U/L (0-32); Blood Urea Nitrogen 17 mg/dL (8-23); Calcium 7.9 mg/dL (8.5-10.5); Carbon Dioxide 24 mmol/L (22-29); Chloride 95 mmol/L (98-107); Creatine Phosphokinase 246 U/L (26-192); Globulin 2.3 g/dL (1.3-4.6); Glomerular Filtration Rate 122.7 mL/min (90-130); Glucose 265 mg/dL (65-115); Lipase 30 U/L (13-60); Osmolality Calculated 287 mOsm/kg (285-295); Potassium 4.3 mmol/L (3.5-5.1); Sodium 133 mmol/L (136-145); Total Bilirubin 0.3 mg/dL (0.15-1.2); Total Protein 6.3 g/dL (6.6-8.7)
[2021-02-19 13:17] LABS: Lactate (Lactic Acid level) 3.6 mmol/L (0.5-2.2)
[2021-02-19 13:29] LABS: Troponin(5th) Baseline 10 ng/L (0-10)
[2021-02-19 13:35] LABS: C Reactive Protein 27.8 mg/L (0.0-4.9)
[2021-02-19] MEDS: iohexol 350 mg/mL 100 mL Btl IV (13:50)
--- NOTE | 2021-02-19 13:50 | ECG_ITS ---
[facility] Test Date: 2021-02-19 Pat Name: Kenisha Lopez Department: Room: Gender: Female Visual Display Manager: : 1950 Requested By: Gonzalez Mcneal I Order Number: [id number] Reading MD: Jameel Haynes M.D. Measurements Intervals [place] Rate: 90 P: 24 DE: 174 QRS: -8 QRSD: 99 T: -10 QT: 375 QTc: 460 Interpretive Statements SINUS RHYTHM INFERIOR MYOCARDIAL INFARCTION , OF INDETERMINATE AGE [40+ ms Q WAVE AND/OR ST/T ABNORMALITY IN II/aVF] Compared to ECG 02/19/2021 12:25:49 No significant changes Electronically Signed On 02-19-2021 17:49:20 CDT by Jameel Haynes M.D. [id number]
[2021-02-19 14:07] VITALS: BP 114/63; PULSE 92; RESP 16; O2SAT 94
[2021-02-19] MEDS: sodium chloride 0.9% 1,000 ML 999 ML IV (14:17)
[2021-02-19 14:20] LABS: Add Urine Microscopic? NO; Charge for UA Resulting for Rev
[2021-02-19 14:32] LABS: Bilirubin Urine Neg (Negative); Blood Urine Neg (Negative); Glucose Urine UA Norm (Normal); Ketones Urine Negative (Negative); Leukocyte Esterase Urine Negative (Negative); Nitrate Urine Negative (Negative); Protein Urine Neg (Negative); Urine Appearance Clear (CLEAR); Urine Color Yellow (Yellow); Urobilinogen Urine Norm (Negative); pH Urine 7 (5-7)
[2021-02-19 16:13] LABS: Troponin 5 2HR 6.45 ng/L (0-10)
[2021-02-19 16:17] LABS: Troponin 5 2HR Delta -3.55 ABS# (0-10)
[2021-02-19 17:16] LABS: Lactate (Lactic Acid level) 1.7 mmol/L (0.5-2.2)
[2021-02-19 17:34] VITALS: BP 149/67; PULSE 85; RESP 18; O2SAT 96
== END 2021-02-19 17:36 | disposition home or self-care (01) ==
PROVIDERS: Emergency Provider Family Medicine; PCP Internal Medicine
DX: E86.0 Dehydration (principal); R55 Syncope and collapse; T67.5XXA Heat exhaustion, unspecified, initial encounter
CPT/HCPCS: 36415; 71275; 80053; 81003; 82550; 83605; 83690; 84443; 84484; 85025; 85610; 86140; 93005; 96360; 99284; J7030; Q9967

== ENCOUNTER 2021-02-22 11:13 | Observation (INO) | payer MEDICARE, OTHER, SELFPAY ==
[2021-02-22] VITALS (8 sets, daily range): BP systolic 99–146; BP diastolic 55–76; PULSE 77–95; RESP 16–18; TEMP 36.5–36.8; O2SAT 94–96; BMI 32.1
--- NOTE | 2021-02-22 11:37 | CTR_ITS ---
PROCEDURE INFORMATION: Exam: CT Abdomen And Pelvis With Contrast Exam date and time: 02/22/2021 12:18 PM Age: 70 years old Clinical indication: Abdominal pain; Other: Diarrhea, abd pain; Prior surgery; Surgery type: Gb TECHNIQUE: Imaging protocol: Computed tomography of the abdomen and pelvis with contrast. Radiation optimization: All CT scans at this facility use at least one of these dose optimization techniques: automated exposure control; mA and/or kV adjustment per patient size (includes targeted exams where dose is matched to clinical indication); or iterative reconstruction. Contrast material: OMNI 300; Contrast volume: 95 ml; Contrast route: INTRAVENOUS (IV); COMPARISON: No relevant prior studies available. RADIATION DOSE METRICS: Total DLP (mGy-cm): 1779.84 FINDINGS: Liver: Normal. No mass. Gallbladder and bile ducts: Cholecystectomy. Normal bile ducts. Pancreas: Normal. No ductal dilation. Spleen: Normal. No splenomegaly. Adrenal glands: Normal. No mass. Kidneys and ureters: There is a benign appearing 1 cm cyst in the left kidney. There are no enhancing renal masses. No urinary calcification or hydronephrosis is seen. Stomach and bowel: There are multiple loops of fluid-filled nondilated small bowel. There is fluid in the right-sided colon consistent with diarrhea. There is no evidence of bowel obstruction or dilatation. The findings may be due to an enteritis. Appendix: The appendix is identified and is normal. Intraperitoneal space: Unremarkable. No free air. No significant fluid collection. Vasculature: There is calcification of the aorta but there is no aneurysm. Lymph nodes: Unremarkable. No enlarged lymph nodes. Urinary bladder: Unremarkable as visualized. Reproductive: Unremarkable as visualized. Bones/joints: Degenerative changes are present in the spine. No acute bony abnormality. Soft tissues: Unremarkable. CT/CT abdomen pelvis w con* [id number] IMPRESSION: There are multiple fluid filled loops of nondilated small bowel and colon. This is nonspecific but may indicate an enteritis. COMMENTS: Consistent with the [employer]'s Incidental Findings Committee white paper (J Am Yolanda Radiol 2018): Any incidental renal lesion less than 1 cm or classified as too small to characterize, or any incidental cystic renal lesion characterized as simple-appearing, is likely benign. No follow-up imaging is recommended for these lesions per consensus recommendations based on imaging criteria. Radiation Dose CTDIVOL = (mGy): DLP = 1779.84 (mGy-cm)
--- NOTE | 2021-02-22 11:52 | ED_ITS ---
HPI - Nausea/Vomiting/Diarrhea General: Chief complaint: Nausea/Vomiting/Diarrhea Stated complaint: N/D X 3DAYS Time Seen by Provider: 02/22/21 11:23 Source: patient Mode of arrival: ambulatory Limitations: no limitations History of Present Illness: HPI Narrative: This is a 70-year-old female patient who was seen earlier in the emergency department for similar symptoms. At that time she had a presyncopal episode and nausea. She continues to be nauseous and has been this way for about 6 days now. She developed diarrhea a few days ago and she has multiple episodes every day. She has had 5 episodes of diarrhea so far today. No vomiting. She is dizzy and lightheaded. No fever. No abdominal pain. No urinary symptoms. No sick contacts. No other person in the family with similar symptoms. MD elicited complaint: nausea Onset (ago): day(s) (6) Description of diarrhea: watery Associated nausea: Yes Associated abdominal pain: No Location of pain: None Exacerbating factors: none Relieving factors: none Associated symtoms: Reports dizziness and nausea; Denies altered mental status, anxiety, bloating, change in vision, chest pain, cough, diaphoresis, decreased urine output, dysuria, epistaxis, fatigue, fecal incontinence, fevers/chills, headache(s), anorexia, malaise, myalgias, numbness, palpitations, rash, short of breath, syncope, tenesmus, tinnitus or weakness Treatment prior to arrival: immodium Review of Systems General: Reports: 10 or more systems reviewed and unremarkable except in HPI and below Const: Denies: fatigue, malaise or diaphoresis Eyes: Denies: change in vision ENMT: Denies: tinnitus or epistaxis Card: Denies: chest pain, palpitations or syncope GI: Reports: nausea; Denies: bloating or fecal incontinence : Denies: dysuria Neuro: Reports: dizziness; Denies: headache(s) Psych: Denies: anxiety PFSH ED PFSH: Social History (Reviewed 02/22/21 @ 11:59 by Gonzalez Mcneal MD, [facility] [place]) Smoking and tobacco status: never smoked Alcohol intake: never Physical Exam Const: COMMON NORMALS: no acute distress, average body habitus, patient oriented x3, no limitations, healthy appearing, alert and well nourished EXAM LIMITATIONS: no altered mental status HENMT: COMMON NORMALS: normocephalic, atraumatic and moist oral mucous membranes HEAD & SCALP: normocephalic and atraumatic Neck/C-Spine: COMMON NORMALS: no meningeal signs and no JVD Resp: COMMON NORMALS: normal respiratory effort, No retractions, No use of accessory muscles, clear to auscultation bilaterally and percussion normal AUSCULTATION: clear to auscultation bilaterally PERCUSSION: percussion normal Cardio: COMMON NORMALS: no JVD, regular rate, regular rhythm, S1 normal heart sound present, S2 normal heart sound present, No gallops present (Cardio), No clicks present (Cardio), No murmurs present (Cardio), No rub (Cardio) and Mague pheral pulses 2+ throughout RATE: regular rate RHYTHM: regular rhythm HEART SOUNDS: S1 normal heart sound present and S2 normal heart sound present PERIPHERAL PULSES: Peripheral pulses 2+ throughout GI: COMMON NORMALS: Normal to inspection, nondistended, normoactive bowel sounds present, Soft to palpation, non-tender, No hepatosplenomegaly present, no masses and no bruits PALPATION: Yes Soft to palpation and Yes No hepatosplenomegaly present Extremity: COMMON NORMALS: normal to inspection, full ROM, capillary refill normal, no calf tenderness and no pedal edema Neuro: COMMON NORMALS: patient oriented x3 SENSORIUM/ORIENTATION: Yes alert MENINGEAL SIGNS: Yes no meningeal signs Skin: COMMON NORMALS: no rashes or lesions noted, no wounds, turgor normal, no jaundice, no petechiae and no mottling GENERAL SKIN EXAM: no rashes or lesions noted and turgor normal Course Reevaluation(s): Reevaluation #1: Discussed her lab and imaging findings with her. Discussed that she has a UTI, CT scan unremarkable other than enteritis. Ketones in her urine consistent with dehydration. Since she has been severely nauseated and unable to eat or drink anything advised that we admit her overnight for hydration. She voiced understanding and is in agreement with the plan. Time: 13:30 Consultations: Consultation #1: Discussed the patient with Dr. Barnett, hospitalist and he kindly accepted the patient to his service. Time: 13:46 Vital Signs: Vital signs: Vital Signs Temperature 97.7 F 02/22/21 11:21 Pulse Rate 86 05/29/21 14:00 Respiratory Rate 16 02/22/21 14:00 Blood Pressure 114/62 02/22/21 14:00 Pulse Oximetry 96 02/22/21 14:00 MDM - Nausea/Vomiting/Diarrhea MDM Narrative: Medical decision making narrative: 70-year-old female patient who has been to the emergency department twice this week for similar symptoms she has severe nausea unable to drink much, and now has significant diarrhea. Evaluation in the emergency department shows she has a UTI as well as lactic acidosis and ketonuria consistent with dehydration. I do not believe she is septic at this time as her vital signs are all normal. She would however benefit from hospital admission for hydration. Medical Records: Attestation: I reviewed the patient's medical records. Lab Data: Attestation: I reviewed the patient's lab results. Labs: Lab Results 02/22/21 02/22/21 02/22/21 Range/Units 11:34 11:45 11:45 WBC 7.1 (4.0-10.0) 10^3/ uL RBC 5.18 (4.1-5.3) 10^6/u L Hgb 13.7 (11.5-15.3) g/dL Hct 43.6 (37.0-47.0) % MCV 84.2 (81-99) fL MCH 26.4 L (28.0-34.0) pg MCHC 31.4 (30.0-36.0) g/dL RDW 15.0 (12.1-15.1) % Plt Count 382 (130-400) 10^3/c mm MPV 10.5 H (7.4-10.4) fL Neut % (Auto) 62.0 % Lymph % (Auto) 23.8 % [place] % (Auto) 13.1 % Eos % (Auto) 0.4 % Baso % (Auto) 0.4 % Neut # (Auto) 4.40 (1.8-7.7) 10^3/u L Lymph # (Auto) 1.7 (0.8-4.8) 10^3/u L [place] # (Auto) 0.9 (0.2-0.9) 10^3/u L Eos # (Auto) 0.0 (0.0-0.8) 10^3/u L Baso # (Auto) 0.0 (0.0-0.1) 10^3/u L Nucleated RBC % (a uto) 0 % Nucleated RBCs # 0.0 /100WBC Sodium 134 L (136-145) mmol/L Potassium 4.0 (3.5-5.1) mmol/L Chloride 96 L (98-107) mmol/L Carbon Dioxide 22 (22-29) mmol/L Anion Gap 20.0 H (5-19) BUN 20 (8-23) mg/dL Creatinine 0.7 (0.5-0.9) mg/dL GFR Calculation 83.2 L (90-130) mL/min Glucose 167 H (65-115) mg/dL Calculated Osmolal ity 284 L (285-295) mOsm/k g Lactate (0.5-2.2) mmol/L Calcium 8.3 L (8.5-10.5) mg/dL Total Bilirubin 0.2 (0.15-1.2) mg/dL AST 65 H (0-32) U/L ALT 68 H (0-33) U/L Alkaline Phosphata se 84 (35-105) IU/L Creatine Kinase 134 (26-192) U/L C-Reactive Protein 4.5 (0.0-4.9) mg/L Total Protein 6.9 (6.6-8.7) g/dL Albumin 4.0 (3.5-5.2) g/dL Globulin 2.9 (1.3-4.6) g/dL Lipase 40 (13-60) U/L Urine Color Yellow (Yellow) Urine Appearance Sl hazy (CLEAR) Urine pH 5 (5-7) Ur Specific Gravit y 1.025 (1.005-1.030) Urine Protein 1+ H (Negative) Urine Glucose (UA) Norm (Normal) Urine Ketones 1+ H (Negative) Urine Blood Neg (Negative) Urine Nitrate Negative (Negative) Urine Bilirubin 2+ H (Negative) Urine Urobilinogen 4 H (Negative) mg/dL Ur Leukocyte Mariln ase 1+ H (Negative) Urine RBC None (0-2) /hpf Urine WBC 0-4 H (0-5) /hpf Ur Squamous Epith Cells Rare (0-5) /hpf Amorphous Sediment Not Reportable Urine Bacteria 2+ H (NONE) /hpf Hyaline Casts Rare /lpf 02/22/21 Range/Units 11:45 WBC (4.0-10.0) 10^3/ uL RBC (4.1-5.3) 10^6/u L Hgb (11.5-15.3) g/dL Hct (37.0-47.0) % MCV (81-99) fL MCH (28.0-34.0) pg MCHC (30.0-36.0) g/dL RDW (12.1-15.1) % Plt Count (130-400) 10^3/c mm MPV (7.4-10.4) fL Neut % (Auto) % Lymph % (Auto) % [place] % (Auto) % Eos % (Auto) % Baso % (Auto) % Neut # (Auto) (1.8-7.7) 10^3/u L Lymph # (Auto) (0.8-4.8) 10^3/u L [place] # (Auto) (0.2-0.9) 10^3/u L Eos # (Auto) (0.0-0.8) 10^3/u L Baso # (Auto) (0.0-0.1) 10^3/u L Nucleated RBC % (a uto) % Nucleated RBCs # /100WBC Sodium (136-145) mmol/L Potassium (3.5-5.1) mmol/L Chloride (98-107) mmol/L Carbon Dioxide (22-29) mmol/L Anion Gap (5-19) BUN (8-23) mg/dL Creatinine (0.5-0.9) mg/dL GFR Calculation (90-130) mL/min Glucose (65-115) mg/dL Calculated Osmolal ity (285-295) mOsm/k g Lactate 2.7 H (0.5-2.2) mmol/L Calcium (8.5-10.5) mg/dL Total Bilirubin (0.15-1.2) mg/dL AST (0-32) U/L ALT (0-33) U/L Alkaline Phosphata se (35-105) IU/L Creatine Kinase (26-192) U/L C-Reactive Protein (0.0-4.9) mg/L Total Protein (6.6-8.7) g/dL Albumin (3.5-5.2) g/dL Globulin (1.3-4.6) g/dL Lipase (13-60) U/L Urine Color (Yellow) Urine Appearance (CLEAR) Urine pH (5-7) Ur Specific Gravit y (1.005-1.030) Urine Protein (Negative) Urine Glucose (UA) (Normal) Urine Ketones (Negative) Urine Blood (Negative) Urine Nitrate (Negative) Urine Bilirubin (Negative) Urine Urobilinogen (Negative) mg/dL Ur Leukocyte Marlin ase (Negative) Urine RBC (0-2) /hpf Urine WBC (0-5) /hpf Ur Squamous Epith Cells (0-5) /hpf Amorphous Sediment Urine Bacteria (NONE) /hpf Hyaline Casts /lpf Discharge Plan Discharge Patient Disposition: Placed in Observation Admit Provider: Misha Juan Clinical Impression: Gastroenteritis, Dehydration, Acidosis, lactic, UTI (urinary tract infection) Condition: Stable Coding Level of Care Code ED [employer] Sawyer for Chg Fwd Exam Comprehensive
[2021-02-22 12:06] LABS: Basophils % 0.4 %; Eosinophils % 0.4 %; Hematocrit 43.6 % (37.0-47.0); Hemoglobin 13.7 g/dL (11.5-15.3); Lymphocytes # 1.7 10^3/uL (0.8-4.8); Lymphocytes % 23.8 %; Mean Corpuscular HGB Conc 31.4 g/dL (30.0-36.0); Mean Corpuscular Hemoglobin 26.4 pg (28.0-34.0); Mean Corpuscular Volume 84.2 fL (81-99); Mean Platelet Volume 10.5 fL (7.4-10.4); Monocytes # 0.9 10^3/uL (0.2-0.9); Monocytes % 13.1 %; Nucleated Red Blood Cells % 0 %; Platelet Count 382 10^3/cmm (130-400); Red Blood Count 5.18 10^6/uL (4.1-5.3); White Blood Count 7.1 10^3/uL (4.0-10.0)
[2021-02-22 12:13] LABS: Bilirubin Urine 2+ (Negative); Blood Urine Neg (Negative); Glucose Urine UA Norm (Normal); Ketones Urine 1+ (Negative); Leukocyte Esterase Urine 1+ (Negative); Nitrate Urine Negative (Negative); Protein Urine 1+ (Negative); Specific Gravity, Urine 1.025 (1.005-1.030); Urine Appearance SL Hazy (CLEAR); Urine Color Yellow (Yellow); Urobilinogen Urine 4 mg/dL (Negative); pH Urine 5 (5-7)
[2021-02-22 12:15] LABS: Add Urine Microscopic? YES
[2021-02-22 12:18] LABS: Add Urine Culture? Yes; Bacteria Urine 2+ /hpf; Hyaline Casts Urine RARE /lpf; Squamous Epithelial Cell Urine RARE /hpf (0-5); WBC Urine 0-4 /hpf (0-5)
--- NOTE | 2021-02-22 12:20 | PC.PHAR ---
pt states she takes care of her own medications-pt states dr randy luna put the hctz on hold pt states she has been taking anyway but states she wont be taking tomorrow-
[2021-02-22] MEDS: iohexol 300 mg/mL 100 mL Btl IV (12:29)
[2021-02-22 12:34] LABS: Lactate (Lactic Acid level) 2.7 mmol/L (0.5-2.2)
[2021-02-22 12:35] LABS: Alanine Aminotransferase 68 U/L (0-33); Alkaline Phosphatase 84 IU/L (35-105); Aspartate Amino Transferase 65 U/L (0-32); Blood Urea Nitrogen 20 mg/dL (8-23); C Reactive Protein 4.5 mg/L (0.0-4.9); Calcium 8.3 mg/dL (8.5-10.5); Carbon Dioxide 22 mmol/L (22-29); Chloride 96 mmol/L (98-107); Creatine Phosphokinase 134 U/L (26-192); Creatinine Clr Calc Pharmacy 65.8674; Globulin 2.9 g/dL (1.3-4.6); Glomerular Filtration Rate 83.2 mL/min (90-130); Glucose 167 mg/dL (65-115); Lipase 40 U/L (13-60); Osmolality Calculated 284 mOsm/kg (285-295); Sodium 134 mmol/L (136-145); Total Bilirubin 0.2 mg/dL (0.15-1.2); Total Protein 6.9 g/dL (6.6-8.7)
[2021-02-22] MEDS: ondansetron 2 mg/ML SDV 2 mL 4 MG IVP (12:56)
[2021-02-22] MEDS: cefTRIAXone 1,000 MG in sodium chloride 0.9% (plus) 50 ML 100 MG IV (12:56)
[2021-02-22] MEDS: sodium chloride 0.9% 1,000 ML 999 ML IV (13:28)
[2021-02-22 14:30] LABS: Creatine Phosphokinase 132 U/L (26-192)
[2021-02-22 15:24] LABS: Hepatitis A Antibody IgM Non-Reactive (Nonreactive); Hepatitis B Core IgM Non-Reactive (Nonreactive); Hepatitis B Surface Antigen Non-Reactive (Nonreactive); Hepatitis C Virus Antibody Non-Reactive (Nonreactive)
--- NOTE | 2021-02-22 15:34 | P.HP_ITS ---
Providers/Chief Complaint Admitting Physician: Misha Juan MD Primary Care Provider: Uvaldo Mcfadden DO Chief Complaint: N/D X 3DAYS History of Present Illness Kenisha Lopez is a 70 year old female with past medical history of noninsulin-dependent type 2 diabetes mellitus, hypertension, hyperlipidemia, who comes to [facility] due to nausea, vomiting, diarrhea, l ightheadedness. Patient tells me that all her symptoms started on Wednesday, when she was mowing the grass for 30 minutes, it was quite hot out and she did not hydrate well, so she felt dehydrated a bit lightheaded, no presyncope, no syncope. No headache, no blurry vision, no chest pain, no palpitations, no seizure-like episode. She presented to the emergency room on 02/20/2020, with a relatively unremarkable work-up, CT negative for PE, lactic acid was elevated, received IV fluids, there was concerns for dehydration. She has been hydrating at home as best she can, but she started developed nausea, diarrhea, cannot keep down liquids, no food poisoning, drinks bottled water, no history of antibiotic use, she has more than 4 bowel movements a day, watery bowel movements, no bloody or black stool, had a negative colonoscopy many years ago, is status post cholecystectomy, no history of postcholecystectomy syndrome. Review of Systems Const: Denies: fever(s), chills, fatigue or malaise Eyes: Denies: change in vision or blurry vision ENMT: Denies: nasal congestion Card: Denies: chest pain or palpitations Resp: Denies: dyspnea, productive cough, non-productive cough or wheezing GI: Reports: nausea, vomiting and diarrhea; Denies: abdominal pain, hematemesis, constipation, hematochezia or melena : Denies: flank pain, dysuria or urinary frequency Musc: Denies: neck pain or back pain Skin/Breast: Denies: rash Neuro: Denies: headache(s), dizziness or vertigo Psych: Denies: anxiety or depression Endo: Denies: polyuria or polydipsia Medications/Allergies Home Medications Medication Instructions Recorded Confirmed Last Taken Type atorvastatin 80 mg PO DAILY@1700 10/31/20 02/22/21 02/21/21 History hydrochlorothiazide 25 mg PO DAILY@0630 10/31/20 02/22/21 02/22/21 History lisinopril 40 mg PO DAILY@0630 10/31/20 02/22/21 02/22/21 History metformin 1,000 mg PO BID@0630,1830 10/31/20 02/22/21 02/22/21 History naproxen sodium [Aleve] 220 - 440 mg PO PRN 10/31/20 02/22/21 02/18/21 History citalopram 10 mg PO DAILY@0630 02/19/21 02/22/21 02/22/21 History esomeprazole magnesium [Nexium 20 mg PO DAILY PRN 02/19/21 02/22/21 02/19/21 History 24HR] aspirin [Aspir-81] 81 mg PO QAM 02/22/21 02/22/21 02/22/21 History multivitamin 1 tab PO QAM 02/22/21 02/22/21 02/22/21 History Allergies Allergy/AdvReac Type Severity Reaction Status Date / Time No Known Allergies Allergy Verified 02/22/21 12:20 PFSH Acute PFSH: Medical History (Updated 02/22/21 @ 15:38 by Misha Juan MD) History of diabetes mellitus, type II History of hyperlipidemia History of hypertension Surgical History (Updated 02/22/21 @ 15:38 by Misha Juan MD) Status post laparoscopic cholecystectomy Family History (Updated 02/22/21 @ 15:38 by Misha uJan MD) Father CAD (coronary artery disease) Diabetes Social History Smoking and tobacco status: never smoked Alcohol intake: never Vitals/I&O/Wt Last Vital Signs Temp 98.2 F 02/22/21 14:58 Pulse 80 02/22/21 14:58 Resp 18 02/22/21 14:58 BP 122/55 02/22/21 14:58 Pulse Ox 95 02/22/21 14:58 02/22/21 02/22/21 02/22/21 06:59 14:59 22:59 Intake Total 50 / 50 Balance 50 / 50 Weight last 48 hrs Weight 79.832 kg Physical Exam Const: COMMON NORMALS: no acute distress and patient oriented x3 GENERAL APPEARANCE: cooperative and comfortable HENMT: COMMON NORMALS: normocephalic HEAD & SCALP: normocephalic Eye: COMMON NORMALS: Equal, round and reactive pupils present and EOMs intact bilaterally GENERAL EYE: appearance normal, both eyes and all related structures PUPIL: Yes Equal, round and reactive pupils present Neck/C-Spine: COMMON NORMALS: no lymphadenopathy THYROID: Thyroid normal Lymph: LYMPHATIC: no lymphadenopathy noted Resp: COMMON NORMALS: normal respiratory effort, No retractions, No use of accessory muscles and clear to auscultation bilaterally AUSCULTATION: clear to auscultation bilaterally Cardio: COMMON NORMALS: regular rate, regular rhythm, S1 normal heart sound present, S2 normal heart sound present, No gallops present (Cardio), No clicks present (Cardio) and No murmurs present (Cardio) RATE: regular rate RHYTHM: regular rhythm HEART SOUNDS: S1 normal heart sound present and S2 normal heart sound present GI: COMMON NORMALS: Normal to inspection, nondistended, normoactive bowel sounds present, Soft to palpation, non-tender and No hepatosplenomegaly present PALPATION: Yes Soft to palpation Extremity: COMMON NORMALS: normal to inspection, full ROM and no pedal edema Neuro: COMMON NORMALS: patient oriented x3, CN's II-XII intact bilaterally and moves all extremities Psych: COMMON NORMALS: mental status grossly normal, Normal thought process present and cooperative THOUGHT PROCESS: Normal thought process present Data : 02/22/21 11:45 02/22/21 11:45 A&P Assessment and plan (1) Acute dehydration: Acute dehydration secondary to gastroenteritis -Start IV hydration -Continue Rocephin for UTI -Monitor for diarrhea -Stool studies -Monitor hemodynamics -Zofran for nausea -Diabetic diet -Insulin sliding scale for type 2 diabetes mellitus -Hold hypertensive medications -Possibly she could postcholecystectomy syndrome, continue to monitor for now -Monitor urine culture, blood cultures -Full code -Lovenox for DVT prophylaxis Status: Acute (2) Gastroenteritis: Status: Acute (3) Acidosis, lactic: Status: Acute (4) UTI (urinary tract infection): Status: Acute Qualifiers: Hematuria presence: without hematuria Urinary tract infection type: acute cystitis Qualified Code(s): N30.00 - Acute cystitis without hematuria Attestations Medical Necessity Statement*: Patient course hospitalization, outpatient with observation, for acute dehydration, gastroenteritis, UTI, lactic acidosis Coding Level of Care Code Acute [employer] Division Manager for g Fwd Diagnoses Acute dehydration E86.0 Gastroenteritis K52.9 Acidosis, lactic E87.2 UTI (urinary tract infection) N30.00 Hematuria presence: without hematuria Urinary tract infection type: acute cystitis
[2021-02-22] MEDS: sodium chloride 0.9% 1,000 ML 75 ML IV (15:54)
[2021-02-22] MEDS: enoxaparin 40 mg/0.4 mL Syringe SUBCUT (15:54)
[2021-02-22 16:51] LABS: Glucose Point of Care 107 mg/dL (70-110)
[2021-02-22] MEDS: atorvastatin 40 mg Tablet 80 MG PO (17:23)
[2021-02-22] MEDS: famotidine 20 mg Tablet PO (17:23)
--- NOTE | 2021-02-22 19:21 | PC.NURSE ---
Report to Lynette KAPLAN at this time.
[2021-02-22 20:42] LABS: Glucose Point of Care 157 mg/dL (70-110)
[2021-02-23] VITALS: BP 151/71; PULSE 77; RESP 17; TEMP 36.2; O2SAT 94
[2021-02-23 04:00] VITALS: BP 117/52; PULSE 72; RESP 16; TEMP 36.5; O2SAT 97
[2021-02-23] MEDS: sodium chloride 0.9% 1,000 ML 75 ML IV (06:06)
[2021-02-23] MEDS: aspirin 81 mg EC Tablet PO (06:07)
[2021-02-23] MEDS: multivitamin therapeutic Tablet 1 TAB PO (06:07)
[2021-02-23] MEDS: citalopram 20 mg Tablet 10 MG PO (06:07)
[2021-02-23 06:16] LABS: Glucose Point of Care 125 mg/dL (70-110)
[2021-02-23 06:24] LABS: Basophils % 0.7 %; Eosinophils # 0.1 10^3/uL (0.0-0.8); Eosinophils % 2.5 %; Hematocrit 33.6 % (37.0-47.0); Hemoglobin 10.7 g/dL (11.5-15.3); Lymphocytes # 1.9 10^3/uL (0.8-4.8); Lymphocytes % 43.9 %; Mean Corpuscular HGB Conc 31.8 g/dL (30.0-36.0); Mean Corpuscular Hemoglobin 26.4 pg (28.0-34.0); Mean Corpuscular Volume 82.8 fL (81-99); Mean Platelet Volume 10.2 fL (7.4-10.4); Monocytes # 0.5 10^3/uL (0.2-0.9); Monocytes % 11.8 %; Neutrophils % 40.6 %; Nucleated Red Blood Cells % 0 %; Platelet Count 261 10^3/cmm (130-400); Red Blood Count 4.06 10^6/uL (4.1-5.3); Red Cell Distribution Width 14.7 % (12.1-15.1); White Blood Count 4.4 10^3/uL (4.0-10.0)
[2021-02-23 06:39] LABS: Lactate (Lactic Acid level) 1.5 mmol/L (0.5-2.2)
[2021-02-23 06:45] LABS: Alanine Aminotransferase 46 U/L (0-33); Albumin Level 3.5 g/dL (3.5-5.2); Alkaline Phosphatase 71 IU/L (35-105); Aspartate Amino Transferase 40 U/L (0-32); Blood Urea Nitrogen 12 mg/dL (8-23); Calcium 7.7 mg/dL (8.5-10.5); Carbon Dioxide 25 mmol/L (22-29); Chloride 101 mmol/L (98-107); Creatinine Clr Calc Pharmacy 65.8674; Globulin 2.1 g/dL (1.3-4.6); Glomerular Filtration Rate 122.7 mL/min (90-130); Glucose 112 mg/dL (65-115); Magnesium 1.6 mg/dL (1.7-2.3); Osmolality Calculated 287 mOsm/kg (285-295); Phosphorus 2.9 mg/dL (2.5-4.5); Sodium 138 mmol/L (136-145); Thyroid Stimulating Hormone 1.04 uIU/mL (0.27-4.20); Total Bilirubin 0.2 mg/dL (0.15-1.2); Total Protein 5.6 g/dL (6.6-8.7)
[2021-02-23 06:48] LABS: Anion Gap 15.5 (5-19); Potassium 3.5 mmol/L (3.5-5.1)
[2021-02-23 07:22] LABS: Slide Review Slide Review Perform
[2021-02-23 07:34] VITALS: BP 147/57; PULSE 69; RESP 17; TEMP 36.4; O2SAT 93
[2021-02-23] MEDS: famotidine 20 mg Tablet PO (08:38)
--- NOTE | 2021-02-23 10:28 | P.DS_ITS ---
Discharge Providers Date of Admission: 02/22/21 13:54 Date of Discharge: February 23, 2021 Attending Provider at Admission: Misha Juan MD Attending Provider at Discharge: Misha Juan MD Primary Care Provider: Uvaldo Mcfadden DO Diagnoses at Discharge Discharge Diagnosis (1) Acute dehydration: Status: Acute (2) Gastroenteritis: Status: Acute (3) Acidosis, lactic: Status: Acute (4) UTI (urinary tract infection): Status: Acute Qualifiers: Hematuria presence: without hematuria Urinary tract infection type: acute cystitis Qualified Code(s): N30.00 - Acute cystitis without hematuria Reason for Visit Reason for Visit: N/D X 3DAYS Hospital Course Hospital Course This is a 70-year-old female, with past medical history of hypertension, hyperlipidemia, noninsulin-dependent type 2 diabetes mellitus, who presents to [facility] due to diarrhea, nausea, dehydration Patient was admitted to [facility] for nausea, diarrhea, dehydration secondary to gastroenteritis and C. difficile positive. No recent antibiotic use, she received IV hydration, p.o. vancomycin, she clinically improved, no abdominal pain, had formed bowel movements before discharge. Discharged on instructions to drink plenty of electrolyte balance fluids, p.o. 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 Follow-up with primary care in 1 to 2 weeks. Her stool was also positive for blood, she had a colonoscopy roughly 10 years ago, she should follow-up with her primary care provider for consideration of repeat colonoscopy. Physical Exam Const: COMMON NORMALS: no acute distress and patient oriented x3 HENMT: COMMON NORMALS: normocephalic HEAD & SCALP: normocephalic Resp: COMMON NORMALS: normal respiratory effort, No retractions, No use of accessory muscles and clear to auscultation bilaterally AUSCULTATION: clear to auscultation bilaterally Cardio: COMMON NORMALS: regular rate, regular rhythm, S1 normal heart sound present and S2 normal heart sound present RATE: regular rate RHYTHM: regular rhythm HEART SOUNDS: S1 normal heart sound present and S2 normal heart sound present GI: COMMON NORMALS: Normal to inspection, nondistended, normoactive bowel sounds present, Soft to palpation, non-tender and No hepatosplenomegaly present PALPATION: Yes Soft to palpation and Yes No hepatosplenomegaly present Extremity: COMMON NORMALS: no pedal edema Neuro: COMMON NORMALS: patient oriented x3 Discharge Data Data Completed and Pending: Completed Studies During Hospitalization Category Date Time Status CT abdomen pelvis w con* [id number] Urge nt Cat Scan 02/22/21 11:37 Completed Pending at discharge Category Date Time Status Blood Culture Sta t Lab 02/22/21 19:03 Results Clostridioides Di fficile PCR Routin e Lab 02/22/21 17:53 Results Clostridioides Di fficile PCR Stat Lab 02/22/21 15:31 Ordered Complete Blood Co unt w/Auto AM LABS Lab 02/24/21 04:00 Ordered Complete Blood Co unt w/Auto AM LABS Lab 02/25/21 04:00 Ordered Comprehensive Met abolic Panel AM LA BS Lab 02/24/21 04:00 Ordered Comprehensive Met abolic Panel AM LA BS Lab 02/25/21 04:00 Ordered Enteric Bacterial Panel by PCR Rout ine Lab 02/22/21 17:53 Results Enteric Parasite Panel by PCR Johannei ne Lab 02/22/21 17:53 Results Immunochemical Fe greer OCB Routine Lab 02/22/21 17:53 Results Lactate (Lactic A fede level) AM LABS Lab 02/24/21 04:00 Ordered Lactate (Lactic A fede level) AM LABS Lab 02/25/21 04:00 Ordered Lactoferrin Routi ne Lab 02/22/21 17:53 Results Magnesium AM LABS Lab 02/24/21 04:00 Ordered Magnesium AM LABS Lab 02/25/21 04:00 Ordered Phosphorus AM LAB S Lab 02/24/21 04:00 Ordered Phosphorus AM LAB S Lab 02/25/21 04:00 Ordered Urine Culture Sta t Lab 02/22/21 11:34 Received Labs from last 24 hours 02/23/21 02/23/21 02/23/21 06:09 05:57 05:57 WBC RBC Hgb Hct MCV MCH MCHC RDW Plt Count MPV Neut % (Auto) Lymph % (Auto) [place] % (Auto) Eos % (Auto) Baso % (Auto) Neut # (Auto) Lymph # (Auto) [place] # (Auto) Eos # (Auto) Baso # (Auto) Nucleated RBC % (a uto) Nucleated RBCs # Sodium 138 Potassium 3.5 Chloride 101 Carbon Dioxide 25 Anion Gap 15.5 BUN 12 Creatinine 0.5 GFR Calculation 122.7 Glucose 112 POC Glucose 125 H Calculated Osmolal ity 287 Lactate 1.5 Calcium 7.7 L Phosphorus 2.9 Magnesium 1.6 L Total Bilirubin 0.2 AST 40 H ALT 46 H Alkaline Phosphata se 71 Creatine Kinase C-Reactive Protein Total Protein 5.6 L Albumin 3.5 Globulin 2.1 Lipase TSH 1.04 Urine Color Urine Appearance Urine pH Ur Specific Gravit y Urine Protein Urine Glucose (UA) Urine Ketones Urine Blood Urine Nitrate Urine Bilirubin Urine Urobilinogen Ur Leukocyte Marlin ase Urine RBC Urine WBC Ur Squamous Epith Cells Amorphous Sediment Urine Bacteria Hyaline Casts Hepatitis A IgM Ab Hep Bs Antigen Hep B Core IgM Ab Hepatitis C Antibo dy 02/23/21 02/22/21 02/22/21 05:57 20:34 16:39 WBC 4.4 RBC 4.06 L Hgb 10.7 L Hct 33.6 L MCV 82.8 MCH 26.4 L MCHC 31.8 RDW 14.7 Plt Count 261 MPV 10.2 Neut % (Auto) 40.6 Lymph % (Auto) 43.9 [place] % (Auto) 11.8 Eos % (Auto) 2.5 Baso % (Auto) 0.7 Neut # (Auto) 1.80 Lymph # (Auto) 1.9 [place] # (Auto) 0.5 Eos # (Auto) 0.1 Baso # (Auto) 0.0 Nucleated RBC % (a uto) 0 Nucleated RBCs # 0.0 Sodium Potassium Chloride Carbon Dioxide Anion Gap BUN Creatinine GFR Calculation Glucose POC Glucose 157 H 107 Calculated Osmolal ity Lactate Calcium Phosphorus Magnesium Total Bilirubin AST ALT Alkaline Phosphata se Creatine Kinase C-Reactive Protein Total Protein Albumin Globulin Lipase TSH Urine Color Urine Appearance Urine pH Ur Specific Gravit y Urine Protein Urine Glucose (UA) Urine Ketones Urine Blood Urine Nitrate Urine Bilirubin Urine Urobilinogen Ur Leukocyte Marlin ase Urine RBC Urine WBC Ur Squamous Epith Cells Amorphous Sediment Urine Bacteria Hyaline Casts Hepatitis A IgM Ab Hep Bs Antigen Hep B Core IgM Ab Hepatitis C Antibo dy 02/22/21 02/22/21 02/22/21 14:27 11:45 11:45 WBC RBC Hgb Hct MCV MCH MCHC RDW Plt Count MPV Neut % (Auto) Lymph % (Auto) [place] % (Auto) Eos % (Auto) Baso % (Auto) Neut # (Auto) Lymph # (Auto) [place] # (Auto) Eos # (Auto) Baso # (Auto) Nucleated RBC % (a uto) Nucleated RBCs # Sodium Potassium Chloride Carbon Dioxide Anion Gap BUN Creatinine GFR Calculation Glucose POC Glucose Calculated Osmolal ity Lactate 2.7 H Calcium Phosphorus Magnesium Total Bilirubin AST ALT Alkaline Phosphata se Creatine Kinase 132 C-Reactive Protein Total Protein Albumin Globulin Lipase TSH Urine Color Urine Appearance Urine pH Ur Specific Gravit y Urine Protein Urine Glucose (UA) Urine Ketones Urine Blood Urine Nitrate Urine Bilirubin Urine Urobilinogen Ur Leukocyte Marlin ase Urine RBC Urine WBC Ur Squamous Epith Cells Amorphous Sediment Urine Bacteria Hyaline Casts Hepatitis A IgM Ab Non-reactive Hep Bs Antigen Non-reactive Hep B Core IgM Ab Non-reactive Hepatitis C Antibo dy Non-reactive 02/22/21 02/22/21 02/22/21 11:45 11:45 11:34 WBC 7.1 RBC 5.18 Hgb 13.7 Hct 43.6 MCV 84.2 MCH 26.4 L MCHC 31.4 RDW 15.0 Plt Count 382 MPV 10.5 H Neut % (Auto) 62.0 Lymph % (Auto) 23.8 [place] % (Auto) 13.1 Eos % (Auto) 0.4 Baso % (Auto) 0.4 Neut # (Auto) 4.40 Lymph # (Auto) 1.7 [place] # (Auto) 0.9 Eos # (Auto) 0.0 Baso # (Auto) 0.0 Nucleated RBC % (a uto) 0 Nucleated RBCs # 0.0 Sodium 134 L Potassium 4.0 Chloride 96 L Carbon Dioxide 22 Anion Gap 20.0 H BUN 20 Creatinine 0.7 GFR Calculation 83.2 L Glucose 167 H POC Glucose Calculated Osmolal ity 284 L Lactate Calcium 8.3 L Phosphorus Magnesium Total Bilirubin 0.2 AST 65 H ALT 68 H Alkaline Phosphata se 84 Creatine Kinase 134 C-Reactive Protein 4.5 Total Protein 6.9 Albumin 4.0 Globulin 2.9 Lipase 40 TSH Urine Color Yellow Urine Appearance Sl hazy Urine pH 5 Ur Specific Gravit y 1.025 Urine Protein 1+ H Urine Glucose (UA) Norm Urine Ketones 1+ H Urine Blood Neg Urine Nitrate Negative Urine Bilirubin 2+ H Urine Urobilinogen 4 H Ur Leukocyte Marlin ase 1+ H Urine RBC None Urine WBC 0-4 H Ur Squamous Epith Cells Rare Amorphous Sediment Not Reportable Urine Bacteria 2+ H Hyaline Casts Rare Hepatitis A IgM Ab Hep Bs Antigen Hep B Core IgM Ab Hepatitis C Antibo dy Vitals: Last Vital Signs Temp 97.6 F 02/23/21 07:34 Pulse 69 02/23/21 07:34 Resp 17 02/23/21 07:34 BP 147/57 02/23/21 07:34 Pulse Ox 93 02/23/21 07:34 Discharge Plan Discharge Patient Disposition: Home Condition: Stable Prescriptions: New vancomycin 125 mg capsule 125 mg PO Q6H 10 Days Qty: 40 RF: 0 Bactrim DS 800-160 mg tablet 1 tab PO BID 4 Days Qty: 8 RF: 0 Continued multivitamin Tablet 1 tab PO QAM RF: 0 aspirin 81 mg Tablet,Delayed Release (Dr/Ec) 81 mg PO QAM RF: 0 atorvastatin 80 mg tablet 80 mg PO DAILY@1700 RF: 0 metformin 1,000 mg tablet 1,000 mg PO BID@0630,1830 RF: 0 naproxen sodium [Aleve] 220 mg Tablet 220 - 440 mg PO PRN RF: 0 hydrochlorothiazide 25 mg tablet 25 mg PO DAILY@0630 RF: 0 lisinopril 40 mg tablet 40 mg PO DAILY@0630 RF: 0 esomeprazole magnesium [Nexium 24HR] 20 mg Capsule,Delayed Release(Dr/Ec) 20 mg PO DAILY PRN (Reason: Heartburn) RF: 0 citalopram 10 mg tablet 10 mg PO DAILY@0630 RF: 0 Discharge Orders: Discharge Order (Routine); Ordered 02/23/21 Ordered By: Misha Juan Discharge Diet: Advance as tolerated Discharge Activity: Resume usual activity Patient Instructions: Opioid Safety Activity Restrictions/Additional Instructions: -Please hydrate well, drink plenty of electrolyte balance fluids -Continue vancomycin for 10 days -Bactrim for UTI -Take off work for the next 2 weeks as 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 Mcfadden for decision on pursuing colonoscopy Discharge Attestations Time Spent in Discharge Care*: less than 30 min Quality Metrics Clinical Quality Measures During this hospital stay, did patient experience: None Coding Level of Care Code Acute Chg FW DC note Diagnoses Acute dehydration E86.0 Gastroenteritis K52.9 Acidosis, lactic E87.2 UTI (urinary tract infection) N30.00 Hematuria presence: without hematuria Urinary tract infection type: acute cystitis
--- NOTE | 2021-02-23 10:49 | PC.NURSE ---
discharge instructions given to patient and daughter. both verbalized understanding of instructions. IV discontinued and covered by 2x2 and cobmichelle.
[2021-02-23 10:58] LABS: Glucose Point of Care 213 mg/dL (70-110)
--- NOTE | 2021-02-23 10:59 | PC.NURSE ---
Patient walked to private vehicle by automobile service writer.
[2021-02-23 11:00] VITALS: BP 147/57; PULSE 69; RESP 17; TEMP 36.4; O2SAT 93
== END 2021-02-23 11:01 | disposition home or self-care (01) ==
LOC: ER 14:05 → MEDSURG 14:08
PROVIDERS: Admitting Provider Family Medicine; Emergency Provider Family Medicine; PCP Internal Medicine; Visit Provider Family Medicine
DX: E86.0 Dehydration (principal); K52.9 Noninfective gastroenteritis and colitis, unspecified; E87.2 Acidosis; N30.00 Acute cystitis without hematuria; I10 Essential (primary) hypertension; E11.9 Type 2 diabetes mellitus without complications; E78.5 Hyperlipidemia, unspecified
CPT/HCPCS: 36415; 36416; 74177; 80053; 80074; 81001; 82274; 82550; 82962; 83605; 83630; 83690; 83735; 84100; 84443; 85025; 86140; 87040; 87086; 87493; 87506; 96365; 96372; 96375; 99285; G0378; J0696; J1650; J2405; J3370; J7030; Q9967

== ENCOUNTER 2021-07-21 08:06 | Outpatient (CLI) | payer MEDICARE, OTHER, SELFPAY ==
--- NOTE | 2021-07-21 08:23 | USCV_ITS ---
Kenisha Lopez Age: 71 Gender: F : 1950 Exam Date: 07/21/2021 08:53 Ordering Phys: Arlette Trujillo Technologist: Safia Zamudio Exam Location: [facility] Indication: SYSTOLIC MURMUR BP: 114 / 62 HR: 74 Rhythm: Sinus Technical Quality: Technically difficult study MEASUREMENTS (Male / Female) Normal Values 2D ECHO LV Diastolic Diameter PLAX 4.1 cm 4.2 - 5.9 / 3.9 - 5.3 cm LV Systolic Diameter PLAX 3.0 cm IVS Diastolic Thickness 1.5 cm 0.6 - 1.0 / 0.6 - 0.9 cm IVS Systolic Thickness 1.8 cm LVPW Diastolic Thickness 1.3 cm 0.6 - 1.0 / 0.6 - 0.9 cm LVPW Systolic Thickness 1.4 cm RV Chamber Size 2.7 cm LVOT Diameter 2.0 cm LV Ejection Fraction 2D Teich 54.1 % LV Ejection Fraction MOD 2C 39.4 % LV Ejection Fraction 2C AL 39.5 % LA Diameter 3.4 cm LA Width 4.1 cm LA Height 4.0 cm RA Width 2.9 cm RA Height 4.3 cm Aorta at Sinotubular Diameter 2.1 cm DOPPLER AV Peak Velocity 119.0 cm/s LVOT Peak Velocity 86.0 cm/s AV Area Cont Eq vti 2.3 cm squared AV Area Cont Eq pk 2.3 cm squared MV Area PHT 5.0 cm squared Mitral E to A Ratio 0.7 MV E' Velocity 34.0 cm/s Mitral E to MV E' Ratio 10.1 Mitral E to LV E' Lateral Ratio 10.1 Mitral E to LV E' Septal Ratio 10.3 TR Peak Velocity 222.7 cm/s TR Peak Gradient 19.8 mmHg TV Peak E Velocity 58.0 cm/s Right Atrial Pressure 3.0 mmHg Pulmonary Artery Systolic Pressu 22.8 mmHg PV Peak Velocity 119.0 cm/s RV Acceleration Time 0.1 s RV Ejection Time 0.4 s RV AcT/ET 0.4 FINDINGS Left Ventricle Normal left ventricular size. LV systolic function is normal with EF of 55-60%. No regional wall motion abnormalties are noted. Grade 1 diastolic dysfunction is seen. Right Ventricle The right ventricle is normal in size and function. Right Atrium The right atrium is normal in size. Left Atrium The left atrium is normal in size. Mitral Valve Grossly normal without significant stenosis or prolapse. There is mild mitral regurgitation. Aortic Valve Not well visualized. No significant stenosis. There is no aortic regurgitation. Tricuspid Valve Structurally normal tricuspid valve without significant stenosis or regurgitation. Insufficient TR jet to calculate RVSP Pulmonic Valve Not well-visualized Pericardium Normal pericardium without effusion. Aorta Normal ascending aorta dimension. CONCLUSIONS This is technically limited quality echocardiogram because of poor ultrasonic windows. LV systolic function is normal with EF of 55-60%. No regional wall motion abnormalities are seen. Grade 1 diastolic dysfunction is present. Mild mitral regurgitation. No comparison studies are available. Jameel Haynes MD (Electronically Signed) Final Date: 24 July 2021 12:13 S
== END 2021-07-21 08:07 | disposition home or self-care (01) ==
LOC: RAD 08:11
PROVIDERS: PCP Internal Medicine; Visit Provider Physician Assistant
DX: R01.1 Cardiac murmur, unspecified (principal); I51.9 Heart disease, unspecified; I34.0 Nonrheumatic mitral (valve) insufficiency
CPT/HCPCS: 93306

== ENCOUNTER 2022-03-31 09:40 | Emergency (ER) | payer MEDICARE, OTHER, SELFPAY ==
[2022-03-31 09:50] VITALS: BP 127/60; PULSE 81; RESP 15; TEMP 36.7; O2SAT 94; BMI 33.5
--- NOTE | 2022-03-31 09:54 | ED_ITS ---
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 Caused her to begin to get lightheaded and dizzy and she ultimately ended up passing out she had an anticipated move to a chair before she became nonresponsive for short period of time. She denies any chest pain or excessive shortness of breath on arrival here states she is feeling fine he is not hurting at all. She never had any chest pain or discomfort she has no focal deficits. MD complaint: almost passed out and collapsed Onset (ago): minute(s) Prodromal symptoms: lightheaded Witnessed: Yes - by Bystander Associated symptoms: Deny abdominal pain, chest pain, fever(s) or nausea Review of Systems Const: Denies: fever(s), chills, body aches, change in appetite, fatigue or malaise ENMT: Denies: throat pain, ear or mastoid pain, nasal discharge or nasal congestion Card: Denies: chest pain, edema, dyspnea on exertion or orthopnea Resp: Denies: dyspnea, productive cough or non-productive cough GI: Denies: abdominal pain, nausea, vomiting, hematemesis, coffee ground emesis, diarrhea, constipation, bloating, hematochezia or melena : Denies: flank pain, difficulty voiding, dysuria, urinary frequency or urinary urgency Skin/Breast: Denies: rash or pruritus PFSH ED PFSH: Medical History History of diabetes mellitus, type II History of hyperlipidemia History of hypertension Surgical History Status post laparoscopic cholecystectomy Family History Father CAD (coronary artery disease) Diabetes Social History Smoking and tobacco status: never smoked Alcohol intake: never Physical Exam Const: COMMON NORMALS: no acute distress GENERAL APPEARANCE: cooperative and comfortable ORIENTATION/CONSCIOUSNESS: Yes awake, Yes oriented to person, Yes oriented to place and Yes oriented to time HENMT: COMMON NORMALS: normocephalic, atraumatic and hearing grossly normal bilaterally HEAD & SCALP: normocephalic and atraumatic Neck/C-Spine: COMMON NORMALS: no JVD Resp: COMMON NORMALS: normal respiratory effort, No retractions, No use of accessory muscles and clear to auscultation bilaterally AUSCULTATION: clear to auscultation bilaterally Cardio: COMMON NORMALS: no JVD, regular rate, regular rhythm and No murmurs present (Cardio) RATE: regular rate RHYTHM: regular rhythm GI: COMMON NORMALS: Soft to palpation and No hepatosplenomegaly present AUSCULTATION: Yes normoactive bowel sounds PALPATION: Yes Soft to palpation, No Tenderness to palpation present (GI), No Guarding due to palpation present (GI) and Yes No hepatosplenomegaly present Extremity: COMMON NORMALS: normal to inspection, capillary refill normal, no clubbing, cyanosis or edema, no calf tenderness and no pedal edema Neuro: SENSORIUM/ORIENTATION: Yes oriented to person, Yes oriented to place and Yes oriented to time Skin: COMMON NORMALS: no rashes or lesions noted GENERAL SKIN EXAM: no rashes or lesions noted Course Vital Signs: Vital signs: Vital Signs Temperature 98.0 F 03/31/22 09:50 Pulse Rate 81 03/31/22 11:32 Respiratory Rate 23 H 03/31/22 11:32 Blood Pressure 147/72 03/31/22 11:32 Pulse Oximetry 95 03/31/22 11:32 MDM - Syncope Medical Decision Making Patient's symptoms resolved. Think was a combination of heat and exposure to aerosolized hydrocarbons. We will discharge her home follow-up as needed Medical Records I reviewed the patient's medical records. Lab Data I reviewed the patient's lab results. : 03/31/22 09:51 03/31/22 09:51 Laboratory Results WBC 8.4 10^3/uL (4.0-10.0) 03/31/22 09:51 RBC 4.73 10^6/uL (4.1-5.3) 03/31/22 09:51 Hgb 12.3 g/dL (11.5-15.3) 03/31/22 09:51 Hct 37.4 % (37.0-47.0) 03/31/22 09:51 MCV 79.1 fl (81-99) L 03/31/22 09:51 MCH 26.0 pg (28.0-34.0) L 03/31/22 09:51 MCHC 32.9 g/dL (30.0-36.0) 03/31/22 09:51 RDW 14.8 % (12.1-15.1) 03/31/22 09:51 Plt Count 371 10^3/cmm (130-400) 03/31/22 09:51 MPV 10.5 fL (7.4-10.4) H 03/31/22 09:51 Neut % (Auto) 61.3 % 03/31/22 09:51 Lymph % (Auto) 28.7 % 03/31/22 09:51 [place] % (Auto) 7.9 % 03/31/22 09:51 Eos % (Auto) 1.0 % 03/31/22 09:51 Baso % (Auto) 0.6 % 03/31/22 09:51 Neut # (Auto) 5.14 10^3/uL (1.8-7.7) 03/31/22 09:51 Lymph # (Auto) 2.4 10^3/uL (0.8-4.8) 03/31/22 09:51 [place] # (Auto) 0.7 10^3/uL (0.2-0.9) 03/31/22 09:51 Eos # (Auto) 0.1 10^3/uL (0.0-0.8) 03/31/22 09:51 Baso # (Auto) 0.1 10^3/uL (0.0-0.1) 03/31/22 09:51 Nucleated RBC % (auto) 0 % 03/31/22 09:51 Nucleated RBCs # 0.0 /100WBC 03/31/22 09:51 Sodium 136 mmol/L (136-145) 03/31/22 09:51 Potassium 3.9 mmol/L (3.5-5.1) 03/31/22 09:51 Chloride 95 mmol/L (98-107) L 03/31/22 09:51 Carbon Dioxide 23 mmol/L (22-29) 03/31/22 09:51 Anion Gap 21.9 (5-19) H 03/31/22 09:51 BUN 16 mg/dL (8-23) 03/31/22 09:51 Creatinine 1.0 mg/dL (0.5-0.9) H 03/31/22 09:51 GFR Calculation 55.0 mL/min (90-130) L 03/31/22 09:51 Glucose 187 mg/dL (65-115) H 03/31/22 09:51 Calculated Osmolality 288 mOsm/kg (285-295) 03/31/22 09:51 Calcium 9.2 mg/dL (8.5-10.5) 03/31/22 09:51 Total Bilirubin 0.2 mg/dL (0.15-1.2) 03/31/22 09:51 AST 26 U/L (0-32) 03/31/22 09:51 ALT 31 U/L (0-33) 03/31/22 09:51 Alkaline Phosphatase 79 IU/L (35-105) 03/31/22 09:51 Total Protein 7.3 g/dL (6.6-8.7) 03/31/22 09:51 Albumin 4.5 g/dL (3.5-5.2) 03/31/22 09:51 Globulin 2.8 g/dL (1.3-4.6) 03/31/22 09:51 Discharge Plan Discharge Patient Disposition: Home Clinical Impression: Toxic effect of hydrocarbon gas Condition: Stable Prescriptions: No Action multivitamin Tablet 1 tab PO QAM 0RF aspirin 81 mg Tablet,Delayed Release (Dr/Ec) 81 mg PO QAM 0RF atorvastatin 80 mg tablet 80 mg PO DAILY@1700 0RF metformin 1,000 mg tablet 1,000 mg PO BID@0630,1830 0RF naproxen sodium [Aleve] 220 mg Tablet 220 - 440 mg PO PRN 0RF hydrochlorothiazide 25 mg tablet 25 mg PO DAILY@0630 0RF lisinopril 40 mg tablet 40 mg PO DAILY@0630 0RF esomeprazole magnesium [Nexium 24HR] 20 mg Capsule,Delayed Release(Dr/Ec) 20 mg PO DAILY PRN (Reason: Heartburn) 0RF citalopram 10 mg tablet 10 mg PO DAILY@0630 0RF Discharge Orders: Discharge ED (Routine); Ordered 03/31/22 Ordered By: Juan Moura Referrals: Uvaldo Mcfadden DO [Primary Care Provider] - Patient Instructions: Opioid Safety Coding Level of Care Code ED Resistance Welding Machine Operator for Nilton Mckeon
--- NOTE | 2022-03-31 10:11 | ECG_ITS ---
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 Measurements Intervals [place] Rate: 82 P: 31 NV: 182 QRS: 2 QRSD: 102 T: 5 QT: 393 QTc: 460 Interpretive Statements SINUS RHYTHM MINIMAL VOLTAGE CRITERIA FOR LVH, CONSIDER NORMAL VARIANT [MEETS CRITERIA IN ONE OF: R(aVL), S(V1), R(V5), R(V5/V6)+S(V1)] POSSIBLE INFERIOR MYOCARDIAL INFARCTION , OF INDETERMINATE AGE [30 ms Q WAVE IN II/aVF] Compared to ECG 02/19/2021 14:22:20 No significant changes Electronically Signed On 03-31-2022 16:52:50 CDT by Jaun Morales M.D. [id number]
[2022-03-31 10:17] VITALS: BP 127/60; PULSE 81; RESP 21; O2SAT 94
[2022-03-31 10:20] LABS: Basophils # 0.1 10^3/uL (0.0-0.1); Basophils % 0.6 %; Eosinophils # 0.1 10^3/uL (0.0-0.8); Hematocrit 37.4 % (37.0-47.0); Hemoglobin 12.3 g/dL (11.5-15.3); Lymphocytes # 2.4 10^3/uL (0.8-4.8); Lymphocytes % 28.7 %; Mean Corpuscular HGB Conc 32.9 g/dL (30.0-36.0); Mean Corpuscular Volume 79.1 fl (81-99); Mean Platelet Volume 10.5 fL (7.4-10.4); Monocytes # 0.7 10^3/uL (0.2-0.9); Monocytes % 7.9 %; Neutrophils # 5.14 10^3/uL (1.8-7.7); Neutrophils % 61.3 %; Nucleated Red Blood Cells % 0 %; Platelet Count 371 10^3/cmm (130-400); Red Blood Count 4.73 10^6/uL (4.1-5.3); Red Cell Distribution Width 14.8 % (12.1-15.1); White Blood Count 8.4 10^3/uL (4.0-10.0)
[2022-03-31 10:36] LABS: Alanine Aminotransferase 31 U/L (0-33); Albumin Level 4.5 g/dL (3.5-5.2); Alkaline Phosphatase 79 IU/L (35-105); Anion Gap 21.9 (5-19); Aspartate Amino Transferase 26 U/L (0-32); Blood Urea Nitrogen 16 mg/dL (8-23); Calcium 9.2 mg/dL (8.5-10.5); Carbon Dioxide 23 mmol/L (22-29); Chloride 95 mmol/L (98-107); Globulin 2.8 g/dL (1.3-4.6); Glucose 187 mg/dL (65-115); Osmolality Calculated 288 mOsm/kg (285-295); Potassium 3.9 mmol/L (3.5-5.1); Sodium 136 mmol/L (136-145); Total Bilirubin 0.2 mg/dL (0.15-1.2); Total Protein 7.3 g/dL (6.6-8.7)
[2022-03-31 11:32] VITALS: BP 147/72; PULSE 81; RESP 23; O2SAT 95
== END 2022-03-31 11:34 | disposition home or self-care (01) ==
PROVIDERS: Emergency Provider Family Medicine; PCP Internal Medicine
DX: T59.891A Toxic effect of other specified gases, fumes and vapors, accidental (unintentional), initial encounter (principal); Z79.82 Long term (current) use of aspirin; Z79.84 Long term (current) use of oral hypoglycemic drugs; E11.9 Type 2 diabetes mellitus without complications; E78.5 Hyperlipidemia, unspecified; I10 Essential (primary) hypertension
CPT/HCPCS: 80053; 85025; 93005; 99283

== ENCOUNTER 2023-08-28 08:58 | Emergency (ER) | payer MEDICARE, OTHER, SELFPAY ==
[2023-08-28 09:43] VITALS: BP 176/76; PULSE 84; RESP 18; TEMP 36.7; O2SAT 96; BMI 33.3
--- NOTE | 2023-08-28 10:27 | XRR_ITS ---
PROCEDURE INFORMATION: Exam: XR Chest Exam date and time: 08/28/2023 11:40 AM Age: 73 years old Clinical indication: Cough and dyspnea; Additional info: Dyspnea/cough TECHNIQUE: Imaging protocol: Radiologic exam of the chest. Views: 1 view. COMPARISON: CR XR chest 2V* [id number] 04/08/2023 12:36 PM FINDINGS: Lungs: Bilateral lung lobes clear. No focal lung consolidations. Pleural spaces: No pneumothorax, or pleural effusion. Heart/Mediastinum: Mild cardiomegaly. Atherosclerotic calcifications of the aortic arch. Bones/joints: No acute fracture. Right humeral anchoring prosthesis remains unchanged. XR/XR chest 1V portable [id number] IMPRESSION: No evidence of pneumonia.
--- NOTE | 2023-08-28 10:31 | ED_ITS ---
HPI - Weakness 2 General: Chief complaint: Weakness Stated complaint: dizzy Time Seen by Provider: 08/28/23 10:22 Source: patient Mode of arrival: ambulatory History of Present Illness: 73-year-old female presents emergency ro om complaining of feeling weak. No fever sweats chills she has had a slight cough some nausea no vomiting or diarrhea just generally very weak denies hematochezia melena hematemesis cough No medication changes recently. No chest pain or tightness. MD Complaint: generalized weakness Onset (ago): day(s) Location: generalized Relieving factors: none Exacerbating factors: none Associated symptoms: Reports decreased appetite and nausea; Denies chest pain, chills, confusion, melena, diaphoresis, dysuria, easy bruising, fever(s), headache(s), myalgias, rash, short of breath, syncope or vomiting Review of Systems 2 Const: Denies: fever(s), chills, fatigue, malaise or diaphoresis Card: Denies: chest pain or syncope Resp: Denies: dyspnea GI: Reports: nausea; Denies: abdominal pain, vomiting or melena : Denies: dysuria, urinary frequency or urinary urgency Musc: Denies: neck pain or back pain Skin/Breast: Denies: rash Neuro: Denies: headache(s) or confusion Alirio/Lymph: Denies: easy bruising PFSH ED 2 PFSH: Medical History History of hyperlipidemia History of hypertension History of diabetes mellitus, type II Surgical History Status post laparoscopic cholecystectomy Family History Father CAD (coronary artery disease) Diabetes Social History Smoking and tobacco/nicotine status: never used tobacco/nicotine Alcohol intake: never Physical Exam 2 Const: COMMON NORMALS: no acute distress GENERAL APPEARANCE: cooperative and comfortable ORIENTATION/CONSCIOUSNESS: Yes awake, Yes oriented to person, Yes oriented to place and Yes oriented to time HENMT: COMMON NORMALS: normocephalic, atraumatic and hearing grossly normal bilaterally HEAD & SCALP: normocephalic and atraumatic Resp: COMMON NORMALS: normal respiratory effort, No retractions, No use of accessory muscles and clear to auscultation bilaterally AUSCULTATION: clear to auscultation bilaterally Cardio: COMMON NORMALS: regular rate, regular rhythm and No murmurs present (Cardio) RATE: regular rate RHYTHM: regular rhythm GI: COMMON NORMALS: Soft to palpation and No hepatosplenomegaly present A USCULTATION: Yes normoactive bowel sounds PALPATION: Yes Soft to palpation, No Tenderness to palpation present (GI), No Guarding due to palpation present (GI) and Yes No hepatosplenomegaly present Extremity: COMMON NORMALS: normal to inspection, capillary refill normal, no clubbing, cyanosis or edema, no calf tenderness and no pedal edema Neuro: SENSORIUM/ORIENTATION: Yes oriented to person, Yes oriented to place and Yes oriented to time Skin: COMMON NORMALS: no rashes or lesions noted GENERAL SKIN EXAM: no rashes or lesions noted Course 2 Vital Signs: Vital signs: Vital Signs Temperature 98.0 F 08/28/23 09:43 Pulse Rate 86 08/28/23 14:36 Respiratory Rate 18 08/28/23 14:36 Blood Pressure 132/92 08/28/23 14:36 Pulse Oximetry 96 08/28/23 14:36 Oxygen Delivery Me thod Room Air 08/28/23 14:36 MDM - Weakness Medical Decision Making Patient does not appear septic as no leukocytosis. She generally does not feel well and has little bit of a cough. No significant findings a repeat lactic acid actually gone up however she had not received fluids yet. She did receive IV fluids states she felt much better her anion gap had improved. At this point I think we can safely discharge home suspect her metformin may play a role in this however decrease her metformin to 500 twice daily. Blood culture was done. She did have some mild hyponatremia but she is asymptomatic of it at this point. We will discharge her home have her follow-up with her primary care doctor. Medical Records I reviewed the patient's medical records. Lab Data I reviewed the patient's lab results. 08/28/23 10:34 08/28/23 14:22 Radiology Impressions Chest X-Ray 08/28/23 10:27 IMPRESSION: No evidence of pneumonia. Soft Tissue Neck X-Ray 08/28/23 11:17 IMPRESSION: No abnormal tracheal narrowing. Laboratory Results WBC 6.69 10^3/uL (3.29-11.43) 08/28/23 10:34 RBC 4.56 10^6/uL (3.85-5.65) 08/28/23 10:34 Hgb 12.10 g/dL (11.27-16.99) 08/28/23 10:34 Hct 37.8 % (36-47) 08/28/23 10:34 MCV 82.9 fl (85-98) L 08/28/23 10:34 MCH 26.5 pg (27-33) L 08/28/23 10:34 MCHC 32.0 g/dL (30-55) 08/28/23 10:34 RDW 14.3 % (12.1-15.1) 08/28/23 10:34 Plt Count 296 10^3/cmm (157-399) 08/28/23 10:34 MPV 9.6 fL (7.4-10.4) 08/28/23 10:34 Neut % (Auto) 61.9 % 08/28/23 10:34 Lymph % (Auto) 26.0 % 08/28/23 10:34 [place] % (Auto) 11.1 % 08/28/23 10:34 Eos % (Auto) 0.4 % 08/28/23 10:34 Baso % (Auto) 0.3 % 08/28/23 10:34 Neut # (Auto) 4.14 10^3/uL (1.8-7.7) 08/28/23 10:34 Lymph # (Auto) 1.7 10^3/uL (0.8-4.8) 08/28/23 10:34 [place] # (Auto) 0.7 10^3/uL (0.2-0.9) 08/28/23 10:34 Eos # (Auto) 0.0 10^3/uL (0.0-0.8) 08/28/23 10:34 Baso # (Auto) 0.0 10^3/uL (0.0-0.1) 08/28/23 10:34 Nucleated RBC % (auto) 0 % 08/28/23 10:34 Nucleated RBCs # 0.0 /100WBC 08/28/23 10:34 Sodium 129 mmol/L (136-145) L 08/28/23 14:22 Potassium 4.0 mmol/L (3.5-5.1) 08/28/23 14:22 Chloride 91 mmol/L (98-107) L 08/28/23 14:22 Carbon Dioxide 24 mmol/L (22-29) 08/28/23 14:22 Anion Gap 18.0 (5-19) 08/28/23 14:22 BUN 19 mg/dL (8-23) 08/28/23 14:22 Creatinine 0.7 mg/dL (0.5-0.9) 08/28/23 14:22 GFR Calculation Not Reportable 08/28/23 14:22 Glucose 106 mg/dL (65-115) 08/28/23 14:22 Calculated Osmolality 271 mOsm/kg (285-295) L 08/28/23 14:22 Lactic Acid 2.9 mmol/L (0.5-2.2) H 08/28/23 10:34 Lactic Acid (Sepsis) 4.2 mmol/L (0.5-2.2) H* 08/28/23 12:59 Calcium 9.4 mg/dL (8.5-10.5) 08/28/23 14:22 Total Bilirubin 0.3 mg/dL (0.15-1.2) 08/28/23 10:34 AST 41 U/L (0-32) H 08/28/23 10:34 ALT 38 U/L (0-33) H 08/28/23 10:34 Alkaline Phosphatase 77 U/L (35-105) 08/28/23 10:34 Creatine Kinase 92 U/L (26-192) 08/28/23 10:34 Total Protein 6.9 g/dL (6.6-8.7) 08/28/23 10:34 Albumin 4.1 g/dL (3.5-5.2) 08/28/23 10:34 Globulin 2.8 g/dL (1.3-4.6) 08/28/23 10:34 Urine Color Yellow (Yellow) 08/28/23 12:10 Urine Appearance Clear (CLEAR) 08/28/23 12:10 Urine pH 5 (5-7) 08/28/23 12:10 Ur Specific [place] 1.015 (1.005-1.030) 08/28/23 12:10 Urine Protein Neg (Negative) 08/28/23 12:10 Urine Glucose (UA) Norm (Normal) 08/28/23 12:10 Urine Ketones Negative (Negative) 08/28/23 12:10 Urine Blood Neg (Negative) 08/28/23 12:10 Urine Nitrate Negative (Negative) 08/28/23 12:10 Urine Bilirubin Neg (Negative) 08/28/23 12:10 Urine Urobilinogen Norm mg/dL (Negative) 08/28/23 12:10 Ur Leukocyte Esterase Negative (Negative) 08/28/23 12:10 Serum Ketones Negative (Negative) 08/28/23 10:34 SARS-CoV-2 Ag (Rapid) negative (Negative) 08/28/23 14:36 All radiology interpretation(s) finalized by discharge Discharge Plan Discharge Patient Disposition: Home Clinical Impression: Viral URI, Lactic acid increased Condition: Stable Prescriptions: Changed metformin 1,000 mg tablet 500 mg PO BID@0630,1830 Qty: 30 0RF No Action aspirin 81 mg Tablet,Delayed Release (Dr/Ec) 81 mg PO QPM atorvastatin 80 mg tablet 80 mg PO QPM hydrochlorothiazide 25 mg tablet 25 mg PO DAILY@0630 lisinopril 40 mg tablet 40 mg PO DAILY@0630 citalopram 10 mg tablet 10 mg PO DAILY@0630 acetaminophen 500 mg Capsule 1,000 mg PO Q6H PRN (Reason: Pain) Discharge Orders: Discharge ED (Routine); Ordered 08/28/23 Ordered By: Juan Moura Referrals: Uvaldo Mcfadden, [Primary Care Provider] - Discharge Diet: Usual diet Discharge Activity: Increase activity as tolerated Patient Instructions: Opioid Safety, Pain Management Activity Restrictions/Additional Instructions: Thank you for choosing [facility] for your healthcare needs today. Please realize this is an emergency room and that we are providing you with a medical screening exam and this may not be complete and all inclusive of all the testing and or work up that you may need to determine your ailment or severity of your illness. It is very important that you follow up as instructed or that you return to the Emergency Department should you have concerns or if your condition changes or worsens in any way. You were seen today for weakness and dizziness. Suspect that you have a mild viral upper respiratory infection. Your laboratory test showed an elevated lactic acidosis this can sometimes be made worse by the use of metformin recommend you cut your metformin dose in half and recheck with your doctor the next few days. If your symptoms worsen or change or you begin develop fever return to the emergency room Coding Level of Care Code ED Customer Service Cashier for Nilton Mckeon
[2023-08-28 10:55] LABS: Chloride 89 mmol/L (98-107); Potassium 4.4 mmol/L (3.5-5.1); Sodium 128 mmol/L (136-145)
[2023-08-28 10:59] LABS: Basophils % 0.3 %; Eosinophils % 0.4 %; Hematocrit 37.8 % (36-47); Lymphocytes # 1.7 10^3/uL (0.8-4.8); Mean Corpuscular Hemoglobin 26.5 pg (27-33); Mean Corpuscular Volume 82.9 fl (85-98); Mean Platelet Volume 9.6 fL (7.4-10.4); Monocytes # 0.7 10^3/uL (0.2-0.9); Monocytes % 11.1 %; Neutrophils # 4.14 10^3/uL (1.8-7.7); Neutrophils % 61.9 %; Nucleated Red Blood Cells % 0 %; Platelet Count 296 10^3/cmm (157-399); Red Blood Count 4.56 10^6/uL (3.85-5.65); Red Cell Distribution Width 14.3 % (12.1-15.1); White Blood Count 6.69 10^3/uL (3.29-11.43)
[2023-08-28 11:00] LABS: Ketone (Acetest) Serum Negative (Negative)
[2023-08-28 11:01] LABS: Lactic Sepsis W/Reflex 2.9 mmol/L (0.5-2.2)
[2023-08-28 11:14] LABS: Alanine Aminotransferase 38 U/L (0-33); Albumin Level 4.1 g/dL (3.5-5.2); Alkaline Phosphatase 77 U/L (35-105); Anion Gap 19.4 (5-19); Aspartate Amino Transferase 41 U/L (0-32); Blood Urea Nitrogen 18 mg/dL (8-23); Calcium 9.4 mg/dL (8.5-10.5); Carbon Dioxide 24 mmol/L (22-29); Creatine Phosphokinase 92 U/L (26-192); Globulin 2.8 g/dL (1.3-4.6); Glucose 151 mg/dL (65-115); Osmolality Calculated 271 mOsm/kg (285-295); Total Bilirubin 0.3 mg/dL (0.15-1.2); Total Protein 6.9 g/dL (6.6-8.7)
--- NOTE | 2023-08-28 11:17 | XRR_ITS ---
PROCEDURE INFORMATION: Exam: XR Soft Tissue Neck Exam date and time: 08/28/2023 12:28 PM Age: 73 years old Clinical indication: Other: Stridor TECHNIQUE: Imaging protocol: Radiologic exam of the soft tissues of the neck. COMPARISON: CR (CHEST, ) 08/28/2023 11:40 AM FINDINGS: Airway: No significant tracheal narrowing. Soft tissues: No abnormal soft tissue noted in the visualized nasopharynx and oropharynx. No abnormal prevertebral soft tissue swelling. Bones/joints: Mild chronic degenerative changes of the cervical vertebrae. Other findings: Lung apices appear clear. XR/XR soft tissue neck [id number] IMPRESSION: No abnormal tracheal narrowing.
[2023-08-28 12:24] LABS: Add Urine Microscopic? NO; Charge for UA Resulting for Rev
[2023-08-28 12:28] LABS: Reflex Lactate Order REFLEX LACTIC ORDERD
[2023-08-28 12:30] LABS: Bilirubin Urine Neg (Negative); Blood Urine Neg (Negative); Glucose Urine UA Norm (Normal); Ketones Urine Negative (Negative); Leukocyte Esterase Urine Negative (Negative); Nitrate Urine Negative (Negative); Protein Urine Neg (Negative); Specific Gravity, Urine 1.015 (1.005-1.030); Urine Appearance Clear (CLEAR); Urine Color Yellow (Yellow); Urobilinogen Urine Norm (Negative); pH Urine 5 (5-7)
--- NOTE | 2023-08-28 12:32 | PC.NURSE ---
assumed care at 1232
[2023-08-28] MEDS: sodium chloride 0.9% 1,000 ML 999 ML IV ×2 (13:14→13:30)
[2023-08-28 13:21] VITALS: BP 122/73; PULSE 88; RESP 18; O2SAT 95
[2023-08-28 13:27] LABS: Lactic Acid level (Lactate) 4.2 mmol/L (0.5-2.2)
[2023-08-28 13:43] VITALS: BP 133/65; PULSE 82; RESP 16; O2SAT 100
[2023-08-28 14:36] VITALS: BP 132/92; PULSE 86; RESP 18; O2SAT 96
[2023-08-28 14:49] LABS: Blood Urea Nitrogen 19 mg/dL (8-23); Calcium 9.4 mg/dL (8.5-10.5); Carbon Dioxide 24 mmol/L (22-29); Chloride 91 mmol/L (98-107); Glucose 106 mg/dL (65-115); Osmolality Calculated 271 mOsm/kg (285-295); Sodium 129 mmol/L (136-145)
[2023-08-28 15:02] LABS: SARS Covid-2 Antigen negative (Negative)
== END 2023-08-28 16:32 | disposition home or self-care (01) ==
PROVIDERS: Emergency Provider Family Medicine; PCP Internal Medicine
DX: J06.9 Acute upper respiratory infection, unspecified (principal); R74.02 Elevation of levels of lactic acid dehydrogenase [LDH]; Z79.82 Long term (current) use of aspirin; Z11.52 Encounter for screening for COVID-19; E78.5 Hyperlipidemia, unspecified; I10 Essential (primary) hypertension; E11.9 Type 2 diabetes mellitus without complications
CPT/HCPCS: 36415; 70360; 71045; 80048; 80053; 81003; 82009; 82550; 83605; 85025; 87040; 87426; 99284; J7030

== ENCOUNTER 2024-06-17 13:13 | Emergency (ER) | payer MEDICARE, OTHER, SELFPAY ==
[2024-06-17 13:31] VITALS: BP 137/67; PULSE 97; RESP 18; TEMP 36.4; O2SAT 96; BMI 32.8
--- NOTE | 2024-06-17 14:21 | ED_ITS ---
HPI - Fall 2 General: Chief Complaint: Fall Stated Complaint: fall left hip injury, SOB , faint Time Seen by Provider: 06/17/24 13:55 Source: patient Mode of arrival: ambulatory Limitations: no limitations History of Present Illness: Patient is a nice 74-year-old female who presents to ED today for evaluation of left hip pain following a fall. Patient states around 1 AM this morning, she was walking back from the bathroom when the next thing I knew I was on the floor . She denies any known mechanical fall. She does not recall ever feeling short of breath or having any chest pain or palpitations. Family in the room states she is done this one other time and was told she had a stress seizure . No seizure like activity noted or witnessed on this episode. States she has been under a great deal of stress. States after the fall she was able to pull herself up and get back into bed. Patient states all day today she has felt normal apart from her left hip feels sore. She is able to ambulate on it. She is not having a headache or neck or back pain. She has not had any episodes of chest pain, shortness of breath, difficulty breathing, palpitations throughout today. MD complaint: fall Onset (ago): hour(s) Fall from: standing Fall witnessed: no Place fall occurred: home Loss of consciousness: Unsure Symptoms prior to fall: other (unknown) Severity: mild Associated symptoms-after fall: Reports no associated symptoms; Denies abdominal pain, chest pain, headache(s), hematuria, lightheadedness or neck pain Related Data Home Medications Medication Instructions Recorded Confirmed atorvastatin 80 mg tablet 80 mg PO QPM 10/31/20 08/28/23 hydrochlorothiazide 25 mg tablet 25 mg PO DAILY@62910/31/20 08/28/23 lisinopril 40 mg tablet 40 mg PO DAILY@62910/31/20 08/28/23 citalopram 10 mg tablet 10 mg PO DAILY@62902/19/21 08/28/23 aspirin 81 mg tablet,delayed 81 mg PO QPM 02/22/21 08/28/23 release acetaminophen 500 mg capsule 1,000 mg PO Q6H PRN Pain 08/28/23 08/28/23 Previous Rx's Medication Instructions Recorded metformin 1,000 mg tablet 500 mg (1/2 x 1,000 mg) PO 08/28/23 BID@30,1830 #30 tabs Allergies Allergy/AdvReac Type Severity Reaction Status Date / Time No Known Allergies Allergy Verified 06/17/24 13:36 Review of Systems 2 Eyes: Denies: change in vision, blurry vision, photophobia, eye discharge, floaters or seeing flashes ENMT: Denies: throat pain, odynophagia, ear or mastoid pain, ear discharge, nasal discharge, epistaxis or sinus pain Card: Denies: chest pain, palpitations, lightheadedness, syncope or pre- syncope Resp: Denies: dyspnea or pain on inspiration GI: Denies: abdominal pain : Denies: flank pain or hematuria Musc: Reports: joint pain (L hip); Denies: neck pain, back pain, extremity pain, extremity swelling, joint swelling or limited range of motion Neuro: Denies: headache(s), numbness in extremities, weakness in extremities, sensory changes or dizziness Psych: Reports: anxiety PFSH ED 2 PFSH: Medical History History of hyperlipidemia History of hypertension History of diabetes mellitus, type II Surgical History Status post laparoscopic cholecystectomy Family History Father CAD (coronary artery disease) Diabetes Social History Smoking and tobacco/nicotine status: never used tobacco/nicotine Alcohol intake: never Physical Exam 2 Const: COMMON NORMALS: no acute distress, average body habitus, patient oriented x3, no limitations, healthy appearing, alert and well nourished G ENERAL APPEARANCE: cooperative ORIENTATION/CONSCIOUSNESS: Yes awake, Yes oriented to person, Yes oriented to place and Yes oriented to time HENMT: COMMON NORMALS: normocephalic, atraumatic and TM's normal bilaterally HEAD & SCALP: normal to inspection, normocephalic and atraumatic; no Hassan's sign, no hematoma and no raccoon eyes FACE & SINUS: normal facial exam TYMPANIC MEMBRANE: TM's normal bilaterally MOUTH: other (no intraoral injuries noted) Eye: COMMON NORMALS: Equal, round and reactive pupils present and EOMs intact bilaterally GENERAL EYE: appearance normal, both eyes and all related structures and normal light reflex PUPIL: Yes Equal, round and reactive pupils present DIRECT OPHTHALMOSCOPY: Yes normal light reflex Neck/C-Spine: COMMON NORMALS: full ROM GENERAL: Yes normal visual inspection CERVICAL SPINE: Yes cervical ROM normal, No pain with cervical ROM, No Cervical spine tenderness, No step off deformity and No Paracervical muscle tenderness Chest: COMMONS NORMALS: normal inspection of the chest and normal palpation of entire chest wall Resp: COMMON NORMALS: normal respiratory effort and clear to auscultation bilaterally AUSCULTATION: clear to auscultation bilaterally Cardio: COMMON NORMALS: regular rate and regular rhythm RATE: regular rate RHYTHM: regular rhythm GI: COMMON NORMALS: Normal to inspection, nondistended, normoactive bowel sounds present, Soft to palpation, non-tender, No hepatosplenomegaly present and no masses INSPECTION: Yes normal to inspection and No abdominal wall ecchymosis AUSCULTATION: Yes normoactive bowel sounds PALPATION: Yes Soft to palpation and Yes No hepatosplenomegaly present Back/Pelvis: COMMON NORMALS: thoracic and lumbar spine normal to inspection, no thoracic nor lumbar tenderness and thoraco-lumbar ROM normal Extremity: COMMON NORMALS: normal to inspection, full ROM, capillary refill normal, no joint enlargement, no clubbing, cyanosis or edema and no pedal edema GENERAL: Yes normal exam except as noted LEFT LOWER EXTREMITY: Yes hip joint Left hip: Yes inspection (ecchymosis posterior/lateral), Yes palpation (TTP posterior), Yes ROM (normal) and Yes neurovascular exam (normal) Neuro: JACOB COMA SCALE: document GCS findings Jacob coma scale eye opening: Spontaneous [place] coma scale verbal response: Orientated Jacob coma scale motor response: Obey commands Jacob coma scale total score: 15 COMMON NORMALS: patient oriented x3, CN's II-XII intact bilaterally, moves all extremities, no focal motor deficits, no sensory deficits noted and gait normal SENSORIUM/ORIENTATION: Yes alert, Yes oriented to person, Yes oriented to place and Yes oriented to time SPEECH: speech normal GAIT: Yes Normal gait present Skin: COMMON NORMALS: no rashes or lesions noted GENERAL SKIN EXAM: no rashes or lesions noted TRAUMA: no lacerations or abrasions Course 2 Vital Signs: Vital signs: Vital Signs Temperature 97.6 F 06/17/24 13:31 Pulse Rate 90 09/21/24 15:45 Respiratory Rate 18 06/17/24 13:31 Blood Pressure 141/59 06/17/24 15:45 Pulse Oximetry 94 06/17/24 15:45 Oxygen Delivery Me thod Room Air 06/17/24 15:45 MDM - Fall Medical Decision Making Patient appears in no acute distress. Her vital signs are stable. Blood work overall is unremarkable. She has chronic hyponatremia. UA without gross evidence for infection. CXR, head CT, and XR imaging of her left pelvis are unremarkable. Patient will be allowed discharge from the emergency department with return precautions. She can otherwise follow-up with primary care. Medical Records I reviewed the patient's medical records. Lab Data I reviewed the patient's lab results. 06/17/24 14:39 06/17/24 14:39 Radiology Impressions Chest X-Ray 06/17/24 14:28 IMPRESSION: No acute findings. Other findings as above. Head CT 06/17/24 14:28 IMPRESSION: No acute intracranial findings. Hip/Pelvis X-Ray 06/17/24 14:28 IMPRESSION: 1. No acute findings. If there is a strong clinical concern for an occult fracture, followup exam or CT/MRI correlation may also be considered. 2. The view of entire pelvis was not submitted. Laboratory Results WBC 7.51 10^3/uL (3.29-11.43) 06/17/24 14:39 RBC 4.33 10^6/uL (3.85-5.65) 06/17/24 14:39 Hgb 11.90 g/dL (11.27-16.99) 06/17/24 14:39 Hct 35.7 % (36-47) L 06/17/24 14:39 MCV 82.4 fl (85-98) L 06/17/24 14:39 MCH 27.5 pg (27-33) 06/17/24 14:39 MCHC 33.3 g/dL (30-55) 06/17/24 14:39 RDW 14.6 % (12.1-15.1) 06/17/24 14:39 Plt Count 300 10^3/cmm (157-399) 06/17/24 14:39 MPV 9.3 fL (7.4-10.4) 06/17/24 14:39 Neut % (Auto) 63.0 % 06/17/24 14:39 Lymph % (Auto) 26.1 % 06/17/24 14:39 [place] % (Auto) 9.3 % 06/17/24 14:39 Eos % (Auto) 0.9 % 06/17/24 14:39 Baso % (Auto) 0.4 % 06/17/24 14:39 Neut # (Auto) 4.73 10^3/uL (1.8-7.7) 06/17/24 14:39 Lymph # (Auto) 2.0 10^3/uL (0.8-4.8) 06/17/24 14:39 [place] # (Auto) 0.7 10^3/uL (0.2-0.9) 06/17/24 14:39 Eos # (Auto) 0.1 10^3/uL (0.0-0.8) 06/17/24 14:39 Baso # (Auto) 0.0 10^3/uL (0.0-0.1) 06/17/24 14:39 Nucleated RBC % (auto) 0 % 06/17/24 14:39 Nucleated RBCs # 0.0 /100WBC 06/17/24 14:39 Sodium 127 mmol/L (136-145) L 06/17/24 14:39 Potassium 3.8 mmol/L (3.5-5.1) 06/17/24 14:39 Chloride 88 mmol/L (98-107) L 06/17/24 14:39 Carbon Dioxide 25 mmol/L (22-29) 06/17/24 14:39 Anion Gap 17.8 (5-19) 06/17/24 14:39 BUN 18 mg/dL (8-23) 06/17/24 14:39 Creatinine 0.7 mg/dL (0.5-0.9) 06/17/24 14:39 GFR Calculation Not Reportable 06/17/24 14:39 Glucose 200 mg/dL (65-115) H 06/17/24 14:39 Calculated Osmolality 272 mOsm/kg (285-295) L 06/17/24 14:39 Calcium 8.5 mg/dL (8.5-10.5) 06/17/24 14:39 Total Bilirubin 0.2 mg/dL (0.15-1.2) 06/17/24 14:39 AST 32 U/L (0-32) 06/17/24 14:39 ALT 42 U/L (0-33) H 06/17/24 14:39 Alkaline Phosphatase 92 U/L (35-105) 06/17/24 14:39 Troponin T Baseline 7 ng/L (0-10) 06/17/24 14:39 Total Protein 6.5 g/dL (6.6-8.7) L 06/17/24 14:39 Albumin 4.3 g/dL (3.5-5.2) 06/17/24 14:39 Globulin 2.2 g/dL (1.3-4.6) 06/17/24 14:39 Urine Color Yellow (Yellow) 06/17/24 14:47 Urine Appearance Clear (CLEAR) 06/17/24 14:47 Urine pH 7.0 (5-7) 06/17/24 14:47 Ur Specific [place] 1.020 (1.005-1.030) 06/17/24 14:47 Urine Protein Negative (Negative) 06/17/24 14:47 Urine Glucose (UA) Negative (Normal) 06/17/24 14:47 Urine Ketones Trace (Negative) 06/17/24 14:47 Urine Blood Negative (Negative) 06/17/24 14:47 Urine Nitrate Negative (Negative) 06/17/24 14:47 Urine Bilirubin Negative (Negative) 06/17/24 14:47 Urine Urobilinogen 1.0 mg/dL (Negative) 06/17/24 14:47 Ur Leukocyte Esterase Trace (Negative) A 06/17/24 14:47 Urine RBC 0-2 /hpf (0-2) 06/17/24 14:47 Urine WBC 0-5 /hpf (0-5) 06/17/24 14:47 Ur Squamous Epith Cells 0-5 /hpf (0-5) 06/17/24 14:47 Amorphous Sediment Not Reportable 06/17/24 14:47 Urine Bacteria None seen /hpf (NONE) 06/17/24 14:47 Hyaline Casts 0.40 /lpf 06/17/24 14:47 All radiology interpretation(s) finalized by discharge Discharge Plan Discharge Patient Disposition: Home Clinical Impression: Fall, Contusion of left hip Condition: Stable Prescriptions: No Action aspirin 81 mg Tablet,Delayed Release (Dr/Ec) 81 mg PO QPM atorvastatin 80 mg tablet 80 mg PO QPM hydrochlorothiazide 25 mg tablet 25 mg PO DAILY@0630 lisinopril 40 mg tablet 40 mg PO DAILY@0630 citalopram 10 mg tablet 10 mg PO DAILY@0630 acetaminophen 500 mg Capsule 1,000 mg PO Q6H PRN (Reason: Pain) metformin 1,000 mg tablet 500 mg PO BID@0630,1830 Qty: 30 0RF Discharge Orders: Discharge ED (Routine); Ordered 06/17/24 Ordered By: Hilaria Sierra Referrals: Uvaldo Mcfadden DO [Primary Care Provider] - Activity Restrictions/Additional Instructions: As we discussed you can follow-up with your primary care provider for any further concerns or any continued episodes of falls. You may return to the emergency department at any point for worsening or concerning symptoms. Coding Level of Care Code ED Manager Parking for Nilton Mckeon
[2024-06-17 14:27] VITALS: BP 142/77; PULSE 94; O2SAT 96
--- NOTE | 2024-06-17 14:28 | CTR_ITS ---
PROCEDURE INFORMATION: Exam: CT Head Without Contrast Exam date and time: 06/17/2024 2:45 PM Age: 74 years old Clinical indication: Injury or trauma; Fall; Blunt trauma (contusions or hematomas); Additional info: Trauma/fall TECHNIQUE: Imaging protocol: Computed tomography of the head without contrast. Radiation optimization: All CT scans at this facility use at least one of these dose optimization techniques: automated exposure control; mA and/or kV adjustment per patient size (includes targeted exams where dose is matched to clinical indication); or iterative reconstruction. COMPARISON: CT head wo con* [id number] 10/31/2020 6:46 PM RADIATION DOSE METRICS: Total DLP (mGy-cm): 997.78 FINDINGS: Brain: Minimal periventricular white matter hypodense changes, most likely related to chronic microvascular ischemic disease. Mild stable brain parenchymal atrophy. No hemorrhage. No mass effect or midline shift. Cerebral ventricles: No pathologic hydrocephalus. Paranasal sinuses: Visualized sinuses are unremarkable. No fluid levels. Mastoid air cells: Visualized mastoid air cells are well aerated. Bones: Unremarkable. No acute fracture. Soft tissues: Unremarkable. CT/CT head wo con* [id number] IMPRESSION: No acute intracranial findings.
--- NOTE | 2024-06-17 14:28 | ECG_ITS ---
[facility] Test Date: 2024-06-17 Pat Name: Kenisha Lopez Department: Room: Gender: Female Assistant Site Manager: : [id number] Requested By: Hilaria Sierra Order Number: [id number] Fred MD: Sal Geller M.D. Measurements Intervals [place] Rate: 89 P: 26 DE: 170 QRS: -10 QRSD: 101 T: -6 QT: 352 QTc: 428 Interpretive Statements SINUS RHYTHM VOLTAGE CRITERIA FOR LVH [MEETS CRITERIA IN ONE OF: R(aVL), S(V1), R(V5), R(V5/V6)+S(V1)] Compared to ECG 03/31/2022 10:16:53 Myocardial infarct finding no longer present Electronically Signed On 06-17-2024 20:07:10 CDT by Sal Geller M.D. [id number]
--- NOTE | 2024-06-17 14:28 | XRR_ITS ---
PROCEDURE INFORMATION: Exam: XR Chest Exam date and time: 06/17/2024 2:51 PM Age: 74 years old Clinical indication: Injury or trauma; Fall; Blunt trauma (contusions or hematomas) TECHNIQUE: Imaging protocol: Radiologic exam of the chest. Views: 1 view. COMPARISON: CR XR chest 1V portable [id number] 08/28/2023 11:40 AM FINDINGS: Lungs: Faint ill-defined opacities along the lateral aspect of the left mid/lower thorax peer unchanged and may represent chronic pleuroparenchymal disease. Otherwise no obvious acute consolidation. CT correlation may be obtained if clinically indicated. The lung bases are suboptimally assessed. Pleural spaces: Unremarkable. No pleural effusion. No pneumothorax. Heart/Mediastinum: No cardiomegaly. Bones/joints: Small surgical anchors in the right proximal humerus. XR/XR chest 1V portable [id number] IMPRESSION: No acute findings. Other findings as above.
--- NOTE | 2024-06-17 14:28 | XRR_ITS ---
PROCEDURE INFORMATION: Exam: XR Left Hip Exam date and time: 06/17/2024 2:49 PM Age: 74 years old Clinical indication: Injury or trauma; Fall; Blunt trauma (contusions or hematomas); Left; Hip; Additional info: Fall; One view pelvis too please TECHNIQUE: Imaging protocol: Radiologic exam of the left hip. Views: 2 or 3 views hip with pelvis when performed. COMPARISON: CT abdomen pelvis w con* [id number] 02/22/2021 12:27 PM FINDINGS: Bones/joints: No acute fracture dislocation. Minimal acetabular spurring. Small chronic enthesophytes at the trochanteric and ischial regions. Well maintained hip joint space on this nonweightbearing exam. Soft tissues: Unremarkable. Other findings: Two views of left hip joint were submitted. The view of entire pelvis was not submitted. XR/XR hip LT 2-3V wo/w pel* [id number] IMPRESSION: 1. No acute findings. If there is a strong clinical concern for an occult fracture, followup exam or CT/MRI correlation may also be considered. 2. The view of entire pelvis was not submitted.
[2024-06-17 14:44] LABS: Basophils % 0.4 %; Eosinophils # 0.1 10^3/uL (0.0-0.8); Eosinophils % 0.9 %; Hematocrit 35.7 % (36-47); Lymphocytes % 26.1 %; Mean Corpuscular HGB Conc 33.3 g/dL (30-55); Mean Corpuscular Hemoglobin 27.5 pg (27-33); Mean Corpuscular Volume 82.4 fl (85-98); Mean Platelet Volume 9.3 fL (7.4-10.4); Monocytes # 0.7 10^3/uL (0.2-0.9); Monocytes % 9.3 %; Neutrophils # 4.73 10^3/uL (1.8-7.7); Nucleated Red Blood Cells % 0 %; Platelet Count 300 10^3/cmm (157-399); Red Blood Count 4.33 10^6/uL (3.85-5.65); Red Cell Distribution Width 14.6 % (12.1-15.1); White Blood Count 7.51 10^3/uL (3.29-11.43)
[2024-06-17 14:57] LABS: Bilirubin Urine Negative (Negative); Blood Urine Negative (Negative); Glucose Urine UA Negative (Normal); Ketones Urine Trace (Negative); Leukocyte Esterase Urine Trace (Negative); Nitrate Urine Negative (Negative); Protein Urine Negative (Negative); Urine Appearance Clear (CLEAR); Urine Color Yellow (Yellow)
[2024-06-17 15:02] LABS: Add Urine Microscopic? YES; Bacteria Urine None Seen /hpf; RBC Urine 0-2 /hpf (0-2); Squamous Epithelial Cell Urine 0-5 /hpf (0-5); WBC Urine 0-5 /hpf (0-5)
[2024-06-17 15:02] LABS: Troponin(5th) Baseline 7 ng/L (0-10)
[2024-06-17 15:08] LABS: Alanine Aminotransferase 42 U/L (0-33); Albumin Level 4.3 g/dL (3.5-5.2); Alkaline Phosphatase 92 U/L (35-105); Anion Gap 17.8 (5-19); Aspartate Amino Transferase 32 U/L (0-32); Blood Urea Nitrogen 18 mg/dL (8-23); Calcium 8.5 mg/dL (8.5-10.5); Carbon Dioxide 25 mmol/L (22-29); Chloride 88 mmol/L (98-107); Creatinine Clr Calc Pharmacy 65.2317; Globulin 2.2 g/dL (1.3-4.6); Glucose 200 mg/dL (65-115); Osmolality Calculated 272 mOsm/kg (285-295); Potassium 3.8 mmol/L (3.5-5.1); Sodium 127 mmol/L (136-145); Total Bilirubin 0.2 mg/dL (0.15-1.2); Total Protein 6.5 g/dL (6.6-8.7)
[2024-06-17 15:45] VITALS: BP 141/59; PULSE 90; O2SAT 94
== END 2024-06-17 16:55 | disposition home or self-care (01) ==
PROVIDERS: Emergency Provider Physician Assistant; PCP Internal Medicine
DX: S70.02XA Contusion of left hip, initial encounter (principal); Z79.82 Long term (current) use of aspirin; Z79.84 Long term (current) use of oral hypoglycemic drugs; E78.5 Hyperlipidemia, unspecified; I10 Essential (primary) hypertension; E11.9 Type 2 diabetes mellitus without complications; W18.39XA Other fall on same level, initial encounter
CPT/HCPCS: 36415; 70450; 71045; 73502; 80053; 81001; 84484; 85025; 93005; 99285

== ENCOUNTER 2024-08-16 08:33 | Outpatient (CLI) | payer MEDICARE, OTHER, SELFPAY ==
--- NOTE | 2024-08-16 08:37 | MM_ITS ---
WS: [id number] VIEWS: MLO and CC views both breasts. 3D digital tomosynthesis is also included in this exam. Comparison made with prior exam of 05/11/2008, 07/05/2017, 02/20/2015, 03/31/2013, 09/17/2011, 02/13/2019, 02/22/2021,. Findings: There are scattered areas of fibroglandular density. No sign of suspicious mass, tumor calcification or architectural distortion. MM/MM scr BI tomosynthesis [id number] Impression: BI-RADS: 2 - Benign. FOLLOW-UP: 1 Year Follow-up This mammogram was also analyzed by the Computer Aided Detection System R2 Imag e Firefighting Equipment Specialist.
== END 2024-08-16 08:34 | disposition home or self-care (01) ==
LOC: RAD 08:33
PROVIDERS: PCP Internal Medicine; Visit Provider Internal Medicine
DX: Z12.31 Encounter for screening mammogram for malignant neoplasm of breast (principal); R92.323 Mammographic fibroglandular density, bilateral breasts
CPT/HCPCS: 77063; 77067

== ENCOUNTER 2024-08-16 16:14 | Emergency (ER) | payer MEDICARE, OTHER, SELFPAY ==
--- NOTE | 2024-08-16 16:16 | ECG_ITS ---
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: : 1950 Requested By: Armando Ferro Order Number: [id number] Fred MD: JADEN SIMMONS Measurements Intervals [place] Rate: 86 P: 29 ID: [id number] QRS: 1 QRSD: 97 T: -3 QT: 368 QTc: 442 Interpretive Statements SINUS RHYTHM MODERATE VOLTAGE CRITERIA FOR LVH, CONSIDER NORMAL VARIANT [MEETS CRITERIA IN ONE OF: R(aVL), S(V1), R(V5), R(V5/V6)+S(V1)] POSSIBLE ANTERIOR MYOCARDIAL INFARCTION , OF INDETERMINATE AGE [30 ms Q WAVE IN V3/V4, OR R < 0.2 mV IN V4] Compared to ECG 06/17/2024 14:32:26 Myocardial infarct finding now present Electronically Signed On 08-16-2024 18:07:01 SCHOOL SUPERVISOR by JADEN SIMMONS [id number]
[2024-08-16 16:35] VITALS: BP 160/63; PULSE 92; RESP 14; TEMP 36.8; O2SAT 97
--- NOTE | 2024-08-16 16:45 | XRR_ITS ---
PROCEDURE INFORMATION: Exam: XR Cervical Spine Exam date and time: 08/16/2024 5:10 PM Age: 74 years old Clinical indication: Neck pain; Additional info: Midline pain TECHNIQUE: Imaging protocol: Radiologic exam of the cervical spine. Views: 2 or 3 views. AP Lateral Odontoid 3 views COMPARISON: CR XR soft tissue neck [id number] 08/28/2023 12:28 PM FINDINGS: Tubes, catheters and devices: None. Bones/joints: Diffusely decreased bone density. Moderate to severe generalized bony degenerative changes. More severe facet degenerative changes throughout the left cervical spine. Normal alignment of the vertebra without dislocation or spondylolisthesis. No visualized evidence for acute bony fracture or dislocation. Bony structures appear otherwise unremarkable. Soft tissues: Unremarkable. Lungs: Visualized aspects of the chest appear grossly unremarkable. Vasculature: Severe atherosclerotic calcification and plaque demonstrated within the aorta. Notes: If there is further concern or neurological abnormalities on clinical exam, MRI or CT of the cervical spine may be performed for complete assessment. XR/XR cervical spine 3V* [id number] IMPRESSION: 1. No acute bony abnormality identified. 2. Chronic appearing moderate to severe degenerative changes, as described above. Consider MRI imaging. 3. Decreased bone density.
--- NOTE | 2024-08-16 16:47 | ED_ITS ---
HPI - Back Pain/Injury General: Chief Complaint: Back Pain/Injury Stated Complaint: neck to back shoulder pain Time Seen by Provider: 08/16/24 16:39 Source: patient Mode of arrival: ambulatory Limitations: no limitations History of Present Illness: Patient is a 74-year-old female presents the emergency department complaining of upper back and right shoulder pain beginning sometime today. No trauma r eported, states this gradually came on and she took one of her husbands muscle relaxers that have somewhat improved the pain. She states she presents making sure nothing was wrong so that she did not wake up in the middle of the night in excruciating pain. She is not reporting any chest pain or shortness of breath. Pain is worse with range of motion at the neck and right shoulder, but does note this is also improved since taking muscle relaxer. She has never had this pain before. MD elicited complaint: back pain Pertinent past history: other (Atraumatic) Onset (ago): hour(s) Timing: improved Severity: moderate Location: right upper back Associated symptoms: Deny abdominal pain, chills, fever(s), nausea or vomiting Treatments prior to arrival: other (Muscle relaxer) Related Data Home Medications Medication Instructions Recorded Confirmed atorvastatin 80 mg tablet 80 mg PO QPM 10/31/20 08/28/23 hydrochlorothiazide 25 mg tablet 25 mg PO DAILY@0630 10/31/20 08/28/23 lisinopril 40 mg tablet 40 mg PO DAILY@0630 10/31/20 08/28/23 citalopram 10 mg tablet 10 mg PO DAILY@0630 02/19/21 08/28/23 aspirin 81 mg tablet,delayed 81 mg PO QPM 02/22/21 08/28/23 release acetaminophen 500 mg capsule 1,000 mg PO Q6H PRN Pain 08/28/23 08/28/23 Previous Rx's Medication Instructions Recorded metformin 1,000 mg tablet 500 mg (1/2 x 1,000 mg) PO 08/28/23 BID@0630,1830 #30 tabs cyclobenzaprine 10 mg tablet 5 mg (1/2 x 10 mg) PO TID #10 tabs 08/16/24 Allergies Allergy/AdvReac Type Severity Reaction Status Date / Time No Known Allergies Allergy Verified 06/17/24 13:36 Review of Systems General: Reports: 10 or more systems reviewed and unremarkable except in HPI and below Const: Denies: fever(s) or chills Card: Denies: chest pain Resp: Denies: dyspnea or productive cough GI: Denies: abdominal pain, nausea, vomiting or diarrhea : Denies: flank pain Musc: Reports: back pain (Upper) and joint pain (Right shoulder); Denies: extremity pain, extremity swelling, joint swelling, joint redness, joint warmth, limited range of motion or muscle weakness Skin/Breast: Denies: rash Neuro: Denies: headache(s), numbness in extremities or weakness in extremities PFSH ED PFSH: Medical History History of hyperlipidemia History of hypertension History of diabetes mellitus, type II Surgical History Status post laparoscopic cholecystectomy Family History Father CAD (coronary artery disease) Diabetes Social History Smoking and tobacco/nicotine status: never used tobacco/nicotine Alcohol intake: never Physical Exam Const: COMMON NORMALS: no acute distress, patient oriented x3, no limitations, healthy appearing, alert and well nourished HENMT: COMMON NORMALS: normocephalic and atraumatic HEAD & SCALP: normocephalic and atraumatic Neck/C-Spine: COMMON NORMALS: full ROM, supple and no meningeal signs OTHER: Reproducible tenderness to lower cervical/upper thoracic spine, also pain to the right trapezius region. Pain is reproduced with range of motion of the neck. Resp: COMMON NORMALS: normal respiratory effort, No use of accessory muscles and clear to auscultation bilaterally AUSCULTATION: clear to auscultation bilaterally Cardio: COMMON NORMALS: regular rate and regular rhythm RATE: regular rate RHYTHM: regular rhythm Extremity: COMMON NORMALS: normal to inspection, full ROM, capillary refill normal, no joint enlargement and no clubbing, cyanosis or edema Neuro: COMMON NORMALS: patient oriented x3, moves all extremities, no focal motor deficits and no sensory deficits noted SENSORIUM/ORIENTATION: Yes alert MENINGEAL SIGNS: Yes no meningeal signs Skin: COMMON NORMALS: no rashes or lesions noted GENERAL SKIN EXAM: no rashes or lesions noted Course Vital Signs: Vital signs: Vital Signs Temperature 98.2 F 08/16/24 16:35 Pulse Rate 81 08/16/24 18:36 Respiratory Rate 14 08/16/24 16:35 Blood Pressure 122/100 08/16/24 18:36 Pulse Oximetry 96 08/16/24 18:36 Oxygen Delivery Me thod Room Air 08/16/24 16:57 MDM - Back Pain/Injury Medical Decision Making Patient reporting sudden onset of upper back pain radiating to right shoulder. Her x-ray showing degenerative changes though nothing acute, EKG unchanged from prior, and she did not report any chest pain or shortness of breath. She does note quite a bit of relief of the pain after receiving a shot of Norflex and Toradol here, will send prescription of low-dose cyclobenzaprine to take prior to bedtime. Also encouraged her to begin applying heat and other conservative therapies discussed. Told her to return with any onset of chest pain or other symptoms, and have her closely follow-up with primary care to make sure she is getting better. She agrees with plan for discharge, all other questions and concerns addressed. Labs Radiology Impressions Cervical Spine X-Ray 08/16/24 16:45 IMPRESSION: 1. No acute bony abnormality identified. 2. Chronic appearing moderate to severe degenerative changes, as described above. Consider MRI imaging. 3. Decreased bone density. All radiology interpretation(s) finalized by discharge Discharge Plan Discharge Patient Disposition: Home Clinical Impression: Right shoulder strain Qualifiers: Encounter type: initial encounter Qualified Code(s): S46.911A - Strain of unspecified muscle, fascia and tendon at shoulder and upper arm level, right arm, initial encounter Condition: Stable Prescriptions: New cyclobenzaprine 10 mg tablet 5 mg PO TID Qty: 10 0RF No Action aspirin 81 mg Tablet,Delayed Release (Dr/Ec) 81 mg PO QPM atorvastatin 80 mg tablet 80 mg PO QPM hydrochlorothiazide 25 mg tablet 25 mg PO DAILY@0630 lisinopril 40 mg tablet 40 mg PO DAILY@0630 citalopram 10 mg tablet 10 mg PO DAILY@0630 acetaminophen 500 mg Capsule 1,000 mg PO Q6H PRN (Reason: Pain) metformin 1,000 mg tablet 500 mg PO BID@0630,1830 Qty: 30 0RF Discharge Orders: Discharge ED (Routine); Ordered 08/16/24 Ordered By: Armando May Referrals: Uvaldo Mcfadden DO [Primary Care Provider] - Patient Instructions: Muscle Strain (ED) Activity Restrictions/Additional Instructions: Muscle relaxer as prescribed, do not operate heavy machinery after taking dose. Apply heat for added relief. Gentle range of motion exercises as tolerated. Please follow-up with your primary care provider for general reevaluation, and return with any new or worsening. Coding Level of Care Code ED Senior Account Representative for Nilton Mckeon
[2024-08-16 16:57] VITALS: PULSE 87; O2SAT 95
[2024-08-16] MEDS: ketorolac 60 mg/2 mL INJ IM (16:58)
[2024-08-16] MEDS: orphenadrine 30 mg/mL Inj 2 mL 60 MG IM (17:00)
[2024-08-16 18:36] VITALS: BP 122/100; PULSE 81; O2SAT 96
== END 2024-08-16 18:37 | disposition home or self-care (01) ==
PROVIDERS: Emergency Provider Physician Assistant; PCP Internal Medicine
DX: S46.911A Strain of unspecified muscle, fascia and tendon at shoulder and upper arm level, right arm, initial encounter (principal); Z79.82 Long term (current) use of aspirin; Z79.84 Long term (current) use of oral hypoglycemic drugs; X58.XXXA Exposure to other specified factors, initial encounter
CPT/HCPCS: 72040; 93005; 96372; 99284; J1885; J2360

== ENCOUNTER 2024-10-18 11:45 | Inpatient (IN) | payer MEDICARE, OTHER, SELFPAY ==
[2024-10-18] VITALS (18 sets, daily range): BP systolic 130–182; BP diastolic 59–97; PULSE 89–119; RESP 16–29; TEMP 36.7–36.8; O2SAT 90–97; BMI 30.3; BMI 33.7
--- NOTE | 2024-10-18 11:48 | ECG_ITS ---
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 Measurements Intervals [place] Rate: 114 P: 38 UT: 164 QRS: 16 QRSD: 86 T: -8 QT: 325 QTc: 448 Interpretive Statements SINUS TACHYCARDIA NONSPECIFIC ST & T-WAVE ABNORMALITY Compared to ECG 08/16/2024 16:48:44 T-wave abnormality now present Sinus rhythm no longer present Myocardial infarct finding no longer present Electronically Signed On 10-21-2024 23:14:16 BUSINESS INSTRUCTOR by Jameel Haynes M.D. [id number]
--- NOTE | 2024-10-18 11:48 | XR_ITS ---
WS: [id number] Portable AP upright chest, 10/18/2024 Clinical Data: cp Comparison: Portable chest, 06/17/2024 Findings: No nodules, masses or effusions are seen. The patchy opacity in the left lateral chest is n ot changed and probably represents minimal pleural reaction. The heart is normal. The pulmonary vascu larity is not increased. No pneumonia or pneumothorax is seen. The aortic arch shows calcification. XR/XR chest 1V portable [id number] Impression: Atherosclerosis.
[2024-10-18 12:36] LABS: Basophils % 0.3 %; Eosinophils % 0.2 %; Hematocrit 43.6 % (36-47); Lymphocytes # 2.1 10^3/uL (0.8-4.8); Lymphocytes % 14.7 %; Mean Corpuscular HGB Conc 31.9 g/dL (30-55); Mean Corpuscular Hemoglobin 26.4 pg (27-33); Mean Corpuscular Volume 82.9 fl (85-98); Mean Platelet Volume 10.2 fL (7.4-10.4); Monocytes # 1.3 10^3/uL (0.2-0.9); Monocytes % 8.9 %; Neutrophils # 10.68 10^3/uL (1.8-7.7); Neutrophils % 75.5 %; Nucleated Red Blood Cells % 0 %; Platelet Count 448 10^3/cmm (157-399); Red Blood Count 5.26 10^6/uL (3.85-5.65); Red Cell Distribution Width 14.9 % (12.1-15.1); White Blood Count 14.15 10^3/uL (3.29-11.43)
[2024-10-18 12:48] LABS: INR 0.86 (0.8-1.2)
[2024-10-18 12:54] LABS: Alanine Aminotransferase 38 U/L (0-33); Albumin Level 4.6 g/dL (3.5-5.2); Alkaline Phosphatase 74 U/L (35-105); Anion Gap 23.5 (5-19); Aspartate Amino Transferase 35 U/L (0-32); Blood Urea Nitrogen 26 mg/dL (8-23); Carbon Dioxide 23 mmol/L (22-29); Chloride 89 mmol/L (98-107); Creatinine Clr Calc Pharmacy 46.6213; Globulin 3.3 g/dL (1.3-4.6); Glucose 168 mg/dL (65-115); Osmolality Calculated 283 mOsm/kg (285-295); Potassium 3.5 mmol/L (3.5-5.1); Sodium 132 mmol/L (136-145); Total Bilirubin 0.4 mg/dL (0.15-1.2); Total Protein 7.9 g/dL (6.6-8.7)
[2024-10-18 12:56] LABS: Troponin(5th) Baseline 16 ng/L (0-10)
--- NOTE | 2024-10-18 13:38 | ED_ITS ---
Documented by User: MARIA ESTHER Peters 10/18/24 13:47 HPI - Weakness 2 General: Chief complaint: Weakness Stated complaint: abn EKG (sent by lexie) Time Seen by Provider: 10/18/24 13:13 Source: patient Mode of arrival: ambulatory Limitations: no limitations History of Present Illness: Patient is a 74-year-old female with past medical history of hypertension, hypercholesteremia, and diabetes who presents the emergency department with weakness since Wednesday. She was seen at [facility] earlier this morning, had EKG was referred to the emergency department with concerns of potential pneumonia or cardiac abnormality. Patient denies history of cardiac issues, does not see a cotton presser. States that she has been dehydrated in the past, she feels similar at this time. No frequent falling. Not reporting any fevers, she is stating that she has been nauseous intermittently. Primary concern is how weak she has felt and that she is now short of breath, not reporting any urinary symptoms or abdominal pain. Tachycardic here in the emergency department, afebrile and marginally low SpO2, does not require oxygen at home. Not reporting any focal neurological deficits, no history of stroke or heart attack. No new medications reported, no temporal pattern. MD Complaint: generalized weakness Onset (ago): day(s) Duration: constant Location: generalized Severity: similar to previous episodes Relieving factors: none Associated symptoms: Reports nausea; Denies chest pain, chills, dysuria, fever(s), headache(s) or vomiting Review of Systems 2 General: Reports: 10 or more systems reviewed and unremarkable except in HPI and below Const: Reports: malaise; Denies: fever(s), chills or fatigue Eyes: Denies: change in vision ENMT: Denies: throat pain, ear or mastoid pain or nasal discharge Card: Denies: chest pain, palpitations, swelling of feet/ankles or lightheadedness Resp: Reports: dyspnea; Denies: productive cough or wheezing GI: Reports: nausea; Denies: abdominal pain, vomiting, diarrhea or constipation : Denies: flank pain, difficulty voiding, dysuria or urinary frequency Musc: Denies: neck pain, back pain or joint pain Skin/Breast: Denies: rash Neuro: Reports: weakness in extremities; Denies: headache(s) or numbness in extremities PFSH ED 2 PFSH: Medical History History of hyperlipidemia History of hypertension History of diabetes mellitus, type II Surgical History Status post laparoscopic cholecystectomy Family History Father CAD (coronary artery disease) Diabetes Social History Smoking and tobacco/nicotine status: never used tobacco/nicotine Alcohol intake: never Physical Exam 2 Const: COMMON NORMALS: no acute distress, patient oriented x3 and no limitations GENERAL APPEARANCE: cooperative and well developed O RIENTATION/CONSCIOUSNESS: Yes awake, Yes oriented to person, Yes oriented to place and Yes oriented to time OTHER: Tired appearing HENMT: COMMON NORMALS: normocephalic, atraumatic and hearing grossly normal bilaterally HEAD & SCALP: normocephalic and atraumatic OTHER: Dry oral mucosa Eye: COMMON NORMALS: Equal, round and reactive pupils present, EOMs intact bilaterally and conjunctivae normal CONJUNCTIVA: Yes conjunctivae normal P UPIL: Yes Equal, round and reactive pupils present Neck/C-Spine: COMMON NORMALS: full ROM, supple and no JVD Resp: COMMON NORMALS: normal respiratory effort, No retractions, No use of accessory muscles and clear to auscultation bilaterally AUSCULTATION: clear to auscultation bilaterally Cardio: COMMON NORMALS: no JVD, regular rhythm, No clicks present (Cardio), No murmurs present (Cardio) and No rub (Cardio) RATE: tachycardic RHYTHM: r egular rhythm GI: COMMON NORMALS: Normal to inspection, nondistended, normoactive bowel sounds present, Soft to palpation and non-tender AUSCULTATION: Yes normoactive bowel sounds PALPATION: Yes Soft to palpation RECTAL EXAM: d eferred Extremity: COMMON NORMALS: normal to inspection and full ROM NARRATIVE EXTREMITY EXAM: Delayed cap refill Neuro: COMMON NORMALS: patient oriented x3, CN's II-XII intact bilaterally, moves all extremities, no focal motor deficits and no sensory deficits noted SENSORIUM/ORIENTATION: Yes oriented to person, Yes oriented to place and Yes oriented to time Skin: NARRATIVE SKIN EXAM: Poor skin turgor Course 2 Vital Signs: Vital signs: Vital Signs Temperature 98.1 F 10/18/24 11:47 Pulse Rate 93 10/18/24 15:30 Respiratory Rate 20 H 10/18/24 15:30 Blood Pressure 140/67 10/18/24 15:30 Pulse Oximetry 95 10/18/24 15:30 Oxygen Delivery Me thod Room Air 10/18/24 14:17 MDM - Weakness Lab Data 10/18/24 11:52 10/18/24 12:20 Radiology Impressions Chest X-Ray 10/18/24 11:48 Impression: Atherosclerosis. Chest/Abdomen/Pelvis CT 10/18/24 13:44 IMPRESSION: 1. Prior cholecystectomy. No intrahepatic bile duct dilatation. 2. No pulmonary embolism. 3. New subpleural 8.6 mm noncalcified nodule LEFT lower lobe. Recommend follow- up chest CT in 3 months. 4. No ascites or adenopathy. 5. No GI tract obstruction or ischemic changes. 6. Very tiny amount of free fluid in the pelvis of uncertain etiology. Laboratory Results WBC 14.15 10^3/uL (3.29-11.43) H 10/18/24 11:52 RBC 5.26 10^6/uL (3.85-5.65) 10/18/24 11:52 Hgb 13.90 g/dL (11.27-16.99) 10/18/24 11:52 Hct 43.6 % (36-47) 10/18/24 11:52 MCV 82.9 fl (85-98) L 10/18/24 11:52 MCH 26.4 pg (27-33) L 10/18/24 11:52 MCHC 31.9 g/dL (30-55) 10/18/24 11:52 RDW 14.9 % (12.1-15.1) 10/18/24 11:52 Plt Count 448 10^3/cmm (157-399) H 10/18/24 11:52 MPV 10.2 fL (7.4-10.4) 10/18/24 11:52 Neut % (Auto) 75.5 % 10/18/24 11:52 Lymph % (Auto) 14.7 % 10/18/24 11:52 [place] % (Auto) 8.9 % 10/18/24 11:52 Eos % (Auto) 0.2 % 10/18/24 11:52 Baso % (Auto) 0.3 % 10/18/24 11:52 Neut # (Auto) 10.68 10^3/uL (1.8-7.7) H 10/18/24 11:52 Lymph # (Auto) 2.1 10^3/uL (0.8-4.8) 10/18/24 11:52 [place] # (Auto) 1.3 10^3/uL (0.2-0.9) H 10/18/24 11:52 Eos # (Auto) 0.0 10^3/uL (0.0-0.8) 10/18/24 11:52 Baso # (Auto) 0.0 10^3/uL (0.0-0.1) 10/18/24 11:52 Nucleated RBC % (auto) 0 % 10/18/24 11:52 Nucleated RBCs # 0.0 /100WBC 10/18/24 11:52 PT 12.40 SECONDS (12.1-14.9) 10/18/24 12:20 INR 0.86 (0.8-1.2) 10/18/24 12:20 Sodium 132 mmol/L (136-145) L 10/18/24 12:20 Potassium 3.5 mmol/L (3.5-5.1) 10/18/24 12:20 Chloride 89 mmol/L (98-107) L 10/18/24 12:20 Carbon Dioxide 23 mmol/L (22-29) 10/18/24 12:20 Anion Gap 23.5 (5-19) H 10/18/24 12:20 BUN 26 mg/dL (8-23) H 10/18/24 12:20 Creatinine 1.2 mg/dL (0.5-0.9) H 10/18/24 12:20 GFR Calculation Not Reportable 10/18/24 12:20 Glucose 168 mg/dL (65-115) H 10/18/24 12:20 Calculated Osmolality 283 mOsm/kg (285-295) L 10/18/24 12:20 Lactic Acid 5.3 mmol/L (0.5-2.2) H* 10/18/24 12:20 Calcium 11.0 mg/dL (8.5-10.5) H 10/18/24 12:20 Total Bilirubin 0.4 mg/dL (0.15-1.2) 10/18/24 12:20 AST 35 U/L (0-32) H 10/18/24 12:20 ALT 38 U/L (0-33) H 10/18/24 12:20 Alkaline Phosphatase 74 U/L (35-105) 10/18/24 12:20 Troponin T Baseline 16 ng/L (0-10) H 10/18/24 12:20 Troponin T 120 Minute 20.85 ng/L (0-10) H 10/18/24 14:00 Delta Troponin T 4.85 ABS# (0-10) 10/18/24 14:00 Total Protein 7.9 g/dL (6.6-8.7) 10/18/24 12:20 Albumin 4.6 g/dL (3.5-5.2) 10/18/24 12:20 Globulin 3.3 g/dL (1.3-4.6) 10/18/24 12:20 TSH 1.60 uIU/mL (0.27-4.20) 10/18/24 12:20 Urine Color Yellow (Yellow) 10/18/24 14:53 Urine Appearance Clear (CLEAR) 10/18/24 14:53 Urine pH 5.5 (5-7) 10/18/24 14:53 Ur Specific Davis 1.045 (1.005-1.030) H 10/18/24 14:53 Urine Protein 1+ (Negative) A 10/18/24 14:53 Urine Glucose (UA) Negative (Normal) 10/18/24 14:53 Urine Ketones Negative (Negative) 10/18/24 14:53 Urine Blood Negative (Negative) 10/18/24 14:53 Urine Nitrate Negative (Negative) 10/18/24 14:53 Urine Bilirubin Negative (Negative) 10/18/24 14:53 Urine Urobilinogen 0.2 mg/dL (Negative) 10/18/24 14:53 Ur Leukocyte Esterase Negative (Negative) 10/18/24 14:53 Urine RBC 0-2 /hpf (0-2) 10/18/24 14:53 Urine WBC 0-5 /hpf (0-5) 10/18/24 14:53 Ur Squamous Epith Cells 0-5 /hpf (0-5) 10/18/24 14:53 Ur Renal Epithelial Cell 0-4 /hpf 10/18/24 14:53 Amorphous Sediment Not Reportable 10/18/24 14:53 Urine Bacteria None seen /hpf (NONE) 10/18/24 14:53 Hyaline Casts 43.00 /lpf 10/18/24 14:53 Ur Oval Fat Bodies 1+ /hpf 10/18/24 14:53 Coronavirus (PCR) Negative (Negative) 10/18/24 14:02 Influenza A (PCR) Negative (Negative) 10/18/24 14:02 Influenza Type B (PCR) Negative (Negative) 10/18/24 14:02 RSV (PCR) Negative (Negative) 10/18/24 14:02 Discharge Plan Discharge Patient Disposition: Admitted As Inpatient Clinical Impression: Elevated lactic acid level, Dehydration, Weakness Condition: Stable Coding 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 Related Data Home Medications Medication Instructions Recorded Confirmed atorvastatin 80 mg tablet 80 mg PO QPM 10/31/20 10/18/24 hydrochlorothiazide 25 mg tablet 25 mg PO DAILY@0630 10/31/20 10/18/24 lisinopril 40 mg tablet 40 mg PO DAILY@0630 10/31/20 10/18/24 citalopram 10 mg tablet 10 mg PO DAILY@0630 02/19/21 10/18/24 fluticasone propionate 50 1 spray intranasal DAILY PRN 10/18/24 10/18/24 mcg/actuation nasal allergies spray,suspension Previous Rx's Medication Instructions Recorded metformin 1,000 mg tablet 500 mg (1/2 x 1,000 mg) PO 08/28/23 BID@0630,1830 #30 tabs cyclobenzaprine 10 mg tablet 5 mg (1/2 x 10 mg) PO TID #10 tabs 08/16/24 Allergies Allergy/AdvReac Type Severity Reaction Status Date / Time No Known Allergies Allergy Verified 06/17/24 13:36 Documented by User: Julee Dominique MD 10/18/24 16:56 HPI - Weakness 2 General: Chief complaint: Weakness Stated complaint: abn EKG (sent by ) Time Seen by Provider: 10/18/24 13:13 PFSH ED 2 PFSH: Medical History History of hyperlipidemia History of hypertension History of diabetes mellitus, type II Surgical History Status post laparoscopic cholecystectomy Family History Father CAD (coronary artery disease) Diabetes Social History Smoking and tobacco/nicotine status: never used tobacco/nicotine Alcohol intake: never Course 2 Vital Signs: Vital signs: Vital Signs Temperature 98.1 F 10/18/24 11:47 Pulse Rate 93 10/18/24 15:30 Respiratory Rate 20 H 10/18/24 15:30 Blood Pressure 140/67 10/18/24 15:30 Pulse Oximetry 95 10/18/24 15:30 Oxygen Delivery Me thod Room Air 10/18/24 14:17 MDM - Weakness Medical Decision Making Patient presents here with generalized weakness she is found to be dehydrated she also has an elevated lactate and white count she was tachycardic when she first arrived she has had no hypotension or fever did just give her sepsis bolus and started IV antibiotics and got blood cultures she feels much improved after fluids will admit at this time to trend her lactate and follow blood cultures Medical Records I reviewed the patient's medical records. Lab Data I reviewed the patient's lab results. 10/18/24 11:52 10/18/24 12:20 Radiology Impressions Chest X-Ray 10/18/24 11:48 Impression: Atherosclerosis. Chest/Abdomen/Pelvis CT 10/18/24 13:44 IMPRESSION: 1. Prior cholecystectomy. No intrahepatic bile duct dilatation. 2. No pulmonary embolism. 3. New subpleural 8.6 mm noncalcified nodule LEFT lower lobe. Recommend follow- up chest CT in 3 months. 4. No ascites or adenopathy. 5. No GI tract obstruction or ischemic changes. 6. Very tiny amount of free fluid in the pelvis of uncertain etiology. Laboratory Results WBC 14.15 10^3/uL (3.29-11.43) H 10/18/24 11:52 RBC 5.26 10^6/uL (3.85-5.65) 10/18/24 11:52 Hgb 13.90 g/dL (11.27-16.99) 10/18/24 11:52 Hct 43.6 % (36-47) 10/18/24 11:52 MCV 82.9 fl (85-98) L 10/18/24 11:52 MCH 26.4 pg (27-33) L 10/18/24 11:52 MCHC 31.9 g/dL (30-55) 10/18/24 11:52 RDW 14.9 % (12.1-15.1) 10/18/24 11:52 Plt Count 448 10^3/cmm (157-399) H 10/18/24 11:52 MPV 10.2 fL (7.4-10.4) 10/18/24 11:52 Neut % (Auto) 75.5 % 10/18/24 11:52 Lymph % (Auto) 14.7 % 10/18/24 11:52 [place] % (Auto) 8.9 % 10/18/24 11:52 Eos % (Auto) 0.2 % 10/18/24 11:52 Baso % (Auto) 0.3 % 10/18/24 11:52 Neut # (Auto) 10.68 10^3/uL (1.8-7.7) H 10/18/24 11:52 Lymph # (Auto) 2.1 10^3/uL (0.8-4.8) 10/18/24 11:52 [place] # (Auto) 1.3 10^3/uL (0.2-0.9) H 10/18/24 11:52 Eos # (Auto) 0.0 10^3/uL (0.0-0.8) 10/18/24 11:52 Baso # (Auto) 0.0 10^3/uL (0.0-0.1) 10/18/24 11:52 Nucleated RBC % (auto) 0 % 10/18/24 11:52 Nucleated RBCs # 0.0 /100WBC 10/18/24 11:52 PT 12.40 SECONDS (12.1-14.9) 10/18/24 12:20 INR 0.86 (0.8-1.2) 10/18/24 12:20 Sodium 132 mmol/L (136-145) L 10/18/24 12:20 Potassium 3.5 mmol/L (3.5-5.1) 10/18/24 12:20 Chloride 89 mmol/L (98-107) L 10/18/24 12:20 Carbon Dioxide 23 mmol/L (22-29) 10/18/24 12:20 Anion Gap 23.5 (5-19) H 10/18/24 12:20 BUN 26 mg/dL (8-23) H 10/18/24 12:20 Creatinine 1.2 mg/dL (0.5-0.9) H 10/18/24 12:20 GFR Calculation Not Reportable 10/18/24 12:20 Glucose 168 mg/dL (65-115) H 10/18/24 12:20 Calculated Osmolality 283 mOsm/kg (285-295) L 10/18/24 12:20 Lactic Acid 5.3 mmol/L (0.5-2.2) H* 10/18/24 12:20 Calcium 11.0 mg/dL (8.5-10.5) H 10/18/24 12:20 Total Bilirubin 0.4 mg/dL (0.15-1.2) 10/18/24 12:20 AST 35 U/L (0-32) H 10/18/24 12:20 ALT 38 U/L (0-33) H 10/18/24 12:20 Alkaline Phosphatase 74 U/L (35-105) 10/18/24 12:20 Troponin T Baseline 16 ng/L (0-10) H 10/18/24 12:20 Troponin T 120 Minute 20.85 ng/L (0-10) H 10/18/24 14:00 Delta Troponin T 4.85 ABS# (0-10) 10/18/24 14:00 Total Protein 7.9 g/dL (6.6-8.7) 10/18/24 12:20 Albumin 4.6 g/dL (3.5-5.2) 10/18/24 12:20 Globulin 3.3 g/dL (1.3-4.6) 10/18/24 12:20 TSH 1.60 uIU/mL (0.27-4.20) 10/18/24 12:20 Urine Color Yellow (Yellow) 10/18/24 14:53 Urine Appearance Clear (CLEAR) 10/18/24 14:53 Urine pH 5.5 (5-7) 10/18/24 14:53 Ur Specific Davis 1.045 (1.005-1.030) H 10/18/24 14:53 Urine Protein 1+ (Negative) A 10/18/24 14:53 Urine Glucose (UA) Negative (Normal) 10/18/24 14:53 Urine Ketones Negative (Negative) 10/18/24 14:53 Urine Blood Negative (Negative) 10/18/24 14:53 Urine Nitrate Negative (Negative) 10/18/24 14:53 Urine Bilirubin Negative (Negative) 10/18/24 14:53 Urine Urobilinogen 0.2 mg/dL (Negative) 10/18/24 14:53 Ur Leukocyte Esterase Negative (Negative) 10/18/24 14:53 Urine RBC 0-2 /hpf (0-2) 10/18/24 14:53 Urine WBC 0-5 /hpf (0-5) 10/18/24 14:53 Ur Squamous Epith Cells 0-5 /hpf (0-5) 10/18/24 14:53 Ur Renal Epithelial Cell 0-4 /hpf 10/18/24 14:53 Amorphous Sediment Not Reportable 10/18/24 14:53 Urine Bacteria None seen /hpf (NONE) 10/18/24 14:53 Hyaline Casts 43.00 /lpf 10/18/24 14:53 Ur Oval Fat Bodies 1+ /hpf 10/18/24 14:53 Coronavirus (PCR) Negative (Negative) 10/18/24 14:02 Influenza A (PCR) Negative (Negative) 10/18/24 14:02 Influenza Type B (PCR) Negative (Negative) 10/18/24 14:02 RSV (PCR) Negative (Negative) 10/18/24 14:02 All radiology interpretation(s) finalized by discharge Discharge Plan Discharge Patient Disposition: Admitted As Inpatient Clinical Impression: Elevated lactic acid level, Dehydration, Weakness Condition: Stable Coding Level 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 Related Data Home Medications Medication Instructions Recorded Confirmed atorvastatin 80 mg tablet 80 mg PO QPM 10/31/20 10/18/24 hydrochlorothiazide 25 mg tablet 25 mg PO DAILY@0630 10/31/20 10/18/24 lisinopril 40 mg tablet 40 mg PO DAILY@0630 10/31/20 10/18/24 citalopram 10 mg tablet 10 mg PO DAILY@0630 02/19/21 10/18/24 fluticasone propionate 50 1 spray intranasal DAILY PRN 10/18/24 10/18/24 mcg/actuation nasal allergies spray,suspension Previous Rx's Medication Instructions Recorded metformin 1,000 mg tablet 500 mg (1/2 x 1,000 mg) PO 08/28/23 BID@0630,1830 #30 tabs cyclobenzaprine 10 mg tablet 5 mg (1/2 x 10 mg) PO TID #10 tabs 08/16/24 Allergies Allergy/AdvReac Type Severity Reaction Status Date / Time No Known Allergies Allergy Verified 06/17/24 13:36
[2024-10-18 13:40] LABS: Lactic Sepsis W/Reflex 5.3 mmol/L (0.5-2.2)
--- NOTE | 2024-10-18 13:44 | CT_ITS ---
WS: [id number] CTA CHEST WITH CT ABDOMEN AND PELVIS. HISTORY: Sepsis. TECHNIQUE: CT angiogram is performed through the chest. Additional imaging is performed through the a bdomen and pelvis with IV contrast. Sagittal and coronal reformats have been submitted. MIP imaging also reviewed. All CT scans at [facility] use at least one of these dose optimization techniqu es: automated exposure control; mA and/or kV adjustment per patient size (includes targeted exams whe re dose is matched to clinical indication); or iterative reconstruction. Contrast: Omnipaque 350; 95 cc IV. DLP: 1233.41 mGy.cm COMPARISON: 02/22/2021 and 02/19/2021 Chest CTA: Good contrast opacification of the pulmonary arteries. No central pulmonary emboli. No emb che identified in the lobar or proximal segmental branches. Mild atherosclerosis aorta. Lung volumes are decreased due to poor inspiratory effort. 8.6 mm noncalcified nodule, subpleural LEFT lower lobe. No mediastinal or hilar adenopathy. Mild LEFT heart enlargement. Abdomen CT: Mild hepatomegaly and hepatic steatosis. No intrahepatic duct dilatation. Normal portal v ein. Normal common bile duct. Normal pancreas. Normal spleen. Normal adrenal glands. No renal obstruc tion or hydronephrosis. No perinephric stranding. Lateral LEFT renal cyst from the superior pole christine ures 1.6 cm. Mild atherosclerotic plaque within the abdominal aorta. Normal mesenteric arteries. No ascites or adenopathy. Normal appearance of the stomach which is not distended. No small bowel obstruction. Normal appendix. Pelvic CT: Tiny amount of free fluid in the pelvis of uncertain etiology. No inflammatory GI tract ch anges. No pneumatosis. CT/CT angio chest w abd pel w con IMPRESSION: 1. Prior cholecystectomy. No intrahepatic bile duct dilatation. 2. No pulmonary embolism. 3. New subpleural 8.6 mm noncalcified nodule LEFT lower lobe. Recommend follow -up chest CT in 3 months. 4. No ascites or adenopathy. 5. No GI tract obstruction or ischemic changes. 6. Very tiny amount of free fluid in the pelvis of uncertain etiology.
[2024-10-18] MEDS: sodium chloride 0.9% 1,000 ML 999 ML IV ×3 (13:45→14:06)
[2024-10-18] MEDS: ondansetron 2 mg/ML SDV 2 mL 4 MG IVP (13:46)
--- NOTE | 2024-10-18 13:51 | ECG_ITS ---
[facility]: [facility]24[facility]18 Pat Name: Kenisha Lopez Department: Room: Gender: Female Icd 9 Coder: : 1950 Requested By: Julee Dominique Order Number: [id number] Fred MD: Jameel Haynes M.D. Measurements Intervals Anita Rate: 104 P: 46 SC: 171 QRS: 21 QRSD: 97 T: -2 QT: 346 QTc: 456 Interpretive Statements SINUS TACHYCARDIA NONSPECIFIC T-WAVE ABNORMALITY Compared to ECG 10/18/2024 11:48:43 No significant changes Electronically Signed On 10-21-2024 23:33:13 CARDIAC CATH RN by Jameel Haynes M.D. [email or web address]
[2024-10-18] MEDS: piperacillin-tazobactam 3.375 GM in sodium chloride 0.9% (plus) 50 ML IV ×2 (14:15→22:26)
[2024-10-18 14:33] LABS: Troponin 5 2HR 20.85 ng/L (0-10); Troponin 5 2HR Delta 4.85 ABS# (0-10)
[2024-10-18 14:54] LABS: Covid PCR NEGATIVE (Negative); Influenza A NEGATIVE (Negative); Influenza B NEGATIVE (Negative); Respiratory Syncytial Virus Ce NEGATIVE (Negative)
[2024-10-18] MEDS: VANCOMYCIN ADD-Vantage 1,000 MG in 0.9% NaCl ADD-Vantage 250 ML 250 MG IV (14:54)
[2024-10-18 15:05] LABS: Reflex Lactate Order REFLEX LACTIC ORDERD
[2024-10-18 15:11] LABS: Bilirubin Urine Negative (Negative); Blood Urine Negative (Negative); Glucose Urine UA Negative (Normal); Ketones Urine Negative (Negative); Leukocyte Esterase Urine Negative (Negative); Nitrate Urine Negative (Negative); Protein Urine 1+ (Negative); Urine Appearance Clear (CLEAR); Urine Color Yellow (Yellow); Urobilinogen Urine 0.2 mg/dL (Negative); pH Urine 5.5 (5-7)
[2024-10-18 15:16] LABS: Add Urine Microscopic? YES; Bacteria Urine None Seen /hpf; RBC Urine 0-2 /hpf (0-2); Squamous Epithelial Cell Urine 0-5 /hpf (0-5); WBC Urine 0-5 /hpf (0-5)
[2024-10-18 16:08] LABS: Specific Gravity, Urine 1.045 (1.005-1.030); UA Slide Review UA Slide Review Perf
[2024-10-18 16:10] LABS: Add Urine Culture? No; Oval Fat Bodies Urine 1+ /hpf
[2024-10-18 16:11] LABS: Renal Epithelial Cells Urine 0-4 /hpf
[2024-10-18 17:10] LABS: Lactic Acid level (Lactate) 1.5 mmol/L (0.5-2.2)
--- NOTE | 2024-10-18 17:24 | P.HP_ITS ---
Providers/Chief Complaint 2 Primary Care Provider: Uvaldo Mcfadden DO Chief Complaint: abn EKG (sent by ) History of Present Illness Kenisha Lopez is a 74 year old female with past medical history of hypertension, type 2 diabetes mellitus, hyperlipidemia presents to the ER today from primary care's office because of generalized weakness which has been getting worse since Wednesday. Today is Wednesday. Patient states her appetite is extremely poor because of poor appetite along with few episodes of nausea but no vomiting. She denies any diarrhea or constipation. Denies any dysuria, headaches, difficulty in breathing, sick contacts. In the ER she was found to be tachycardic on presentation with a normal blood pressure, white count of 14,000 creatinine of 1.2, lactate of 5.1. Given concerns for sepsis with elevated lactate she was given sepsis fluid bolus along with broad-spectrum IV antibiotics. Review of Systems 2 General: Reports: 10 or more systems reviewed and unremarkable except in HPI and below Const: Denies: fever(s), chills, body aches, change in appetite, change in weight, malaise, night sweats, diaphoresis, change in sleep pattern, daytime sleepiness or snoring Eyes: Denies: change in vision, blurry vision, photophobia, eye discomfort or eye discharge ENMT: Denies: throat pain, enlarged tonsils, hoarseness, mouth pain, oral sores, dry mouth, tinnitus, nasal congestion or post nasal drip Card: Denies: chest pain, palpitations, irregular heart rhythm, edema, swelling of feet/ankles, lightheadedness, syncope, pre-syncope, dyspnea on exertion, orthopnea, leg pain with exertion or acrocyanosis Resp: Denies: dyspnea, productive cough, non-productive cough, wheezing, stridor, pain on inspiration, change in phlegm color, hemoptysis or chest congestion GI: Denies: abdominal pain, nausea, vomiting, hematemesis, coffee ground emesis, dysphagia, heartburn, diarrhea, constipation, bloating, GI cramping, change in bowel habits, pain on defecation, hematochezia or melena : Denies: flank pain, dysuria, urinary frequency, urinary urgency, urinary hesitancy, nocturia or hematuria Musc: Denies: neck pain, back pain, extremity pain, joint pain, joint swelling, joint redness, joint stiffness or limited range of motion Neuro: Denies: headache(s), numbness in extremities, weakness in extremities, sensory changes, lack of coordination, difficulty walking, frequent falls, dizziness, vertigo, confusion, Slurred speech present, difficulty communicating thoughts or seizure-like activity Psych: Denies: anxiety, depression, mood swings, panic attacks, hopelessness or irritability Endo: Denies: polyuria, polydipsia, tired all the time, cold intolerance, excessive sweating, flushing or heat intolerance Alirio/Lymph: Denies: easy bruising or easy bleeding All/Imm: Denies: tongue swelling, facial swelling or acute wheezing Medications/Allergies Home Medications Medication Instructions Recorded Confirmed Last Taken Type atorvastatin 80 mg tablet 80 mg PO QPM 10/31/20 10/18/24 10/18/24 History hydrochlorothiazide 25 mg tablet 25 mg PO DAILY@0630 10/31/20 10/18/24 10/18/24 History lisinopril 40 mg tablet 40 mg PO DAILY@0630 10/31/20 10/18/24 10/18/24 History citalopram 10 mg tablet 10 mg PO DAILY@0630 02/19/21 10/18/24 10/18/24 History metformin 1,000 mg tablet 500 mg (1/2 x 1,000 mg) PO 08/28/23 10/18/24 10/18/24 Rx BID@0630,1830 #30 tabs cyclobenzaprine 10 mg tablet 5 mg (1/2 x 10 mg) PO TID #10 tabs 08/16/24 10/18/24 10/18/24 Rx fluticasone propionate 50 1 spray intranasal DAILY PRN 10/18/24 10/18/24 Unknown History mcg/actuation nasal allergies spray,suspension Allergies Allergy/AdvReac Type Severity Reaction Status Date / Time No Known Allergies Allergy Verified 06/17/24 13:36 PFSH Acute 2 PFSH: Medical History (Updated 10/18/24 @ 17:30 by Jovanny Wu MD) History of hyperlipidemia History of hypertension History of diabetes mellitus, type II Surgical History Status post laparoscopic cholecystectomy Family History Father CAD (coronary artery disease) Diabetes Social History Smoking and tobacco/nicotine status: never used tobacco/nicotine Alcohol intake: never Vitals/I&O/Wt Last Vital Signs Temp 98.1 F 10/18/24 11:47 Pulse 96 10/18/24 17:00 Resp 25 H 10/18/24 17:00 BP 171/65 10/18/24 16:00 Pulse Ox 95 10/18/24 17:00 O2 Del Method Room Air 10/18/24 14:17 10/18/24 10/18/24 10/18/24 06:59 14:59 22:59 Intake Total 3050 / 3050 Balance 3050 / 3050 Weight last 48 hrs Weight 85.275 kg Physical Exam 2 Narrative: General: No acute distress, AO x3, dehydrated HEENT: PERRLA, pupils bilaterally equal and reactive Chest: Normal vesicular breath sounds, no added sounds, equal good air entry bilaterally CVS: S1-S2 regular, no murmurs, no tachycardia, no gallops, no rubs Abdomen: Soft, nontender, no organomegaly, bowel sounds present Neuro: No focal deficits, no facial deformity, AO x3, power 5/5 in all limbs Data 10/18/24 11:52 10/18/24 12:20 Micro: Microbiology 10/18/24 13:55 Blood Culture - Preliminary Blood SPECIMEN COLLECTED 10/18/24 13:55 Blood Culture - Preliminary Blood SPECIMEN COLLECTED A&P Assessment and plan (1) Sepsis: SIRS: Tachycardic, Febrile, Leukocytosis Source: Unknown End organ damage: UNRULY Lactic acid elevated. Patient did receive full 30 mL/kg BW. Continue IV fluids at 100 cc/h. Monitor blood pressures. Keep mean artery pressure 65 mmHg. Check blood culture, urine culture, MRSA swab, trend procalcitonin, bacterial antigen. Broad-spectrum antibiotics with IV vancomycin and Zosyn for now. If MRSA swab is negative will discontinue vancomycin. No particular source for infection for now. UA negative for UTI, patient remains on room air. CT chest abdomen pelvis negative for acute abnormality. If blood cultures remain negative for 48 hours we will plan to discontinue antibiotics. De-escalate antibiotics as per culture results. (2) Acute kidney injury: Baseline creatinine normal. Medical reconciliation done for nephrotoxic drugs. Hold off on home dose of metoprolol, hydrochlorothiazide, lisinopril for now. IV fluid as above. Monitor BMP daily. Monitor electrolytes. (3) Weakness: (4) Elevated lactic acid level: Most likely in setting of sepsis along with metformin in setting of transaminitis which could be in setting of ENGLE. Continue to monitor. (5) Dehydration: (6) Transaminitis: Liver ultrasound Check hepatitis panel, HIV. Monitor daily. Plan Full code Carb consistent diet Protonix for PUD prophylaxis Heparin 5000 every 12 hourly for DVT prophylaxis. Attestations 2 Medical Necessity Statement*: Admission for the 2 midnights for management of sepsis, elevated lactate, acute kidney injury in setting of dehydration Diagnoses Sepsis A41.9 Acute kidney injury N17.9 Weakness R53.1 Elevated lactic acid level R79.89 Dehydration E86.0 Transaminitis R74.01
[2024-10-18 17:29] LABS: Procalcitonin 0.11 ng/mL (0-0.5)
--- NOTE | 2024-10-18 17:35 | USR_ITS ---
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 Limited exam focused on the right upper quadrant. COMPARISON: CT angio chest w abd pel w con 10/18/2024 2:29 PM FINDINGS: Liver: There is diffuse increased echogenicity of the hepatic parenchyma consistent with fatty infiltration. No hepatic masses are identified by ultrasound. Gallbladder: The gallbladder is surgically absent. There is no ductal dilatation. Biliary ducts: There is no evidence of intra or extrahepatic ductal dilatation. The common bile duct measures 5 mm. Pancreas: The visualized portions of the pancreas are within normal limits. The tail is obscured by bowel gas. Right kidney: The right kidney is normal. There is no evidence of renal calcification or hydronephrosis. The right kidney measures 9.8 cm in length. Inferior vena cava: The visualized inferior vena cava is within normal limits. Portal venous: The portal vein is patent. US/US liver [id number] IMPRESSION: 1. Fatty liver. 2. Otherwise unremarkable right upper quadrant ultrasound.
--- NOTE | 2024-10-18 18:25 | ECG_ITS ---
[facility] Test Date: 2024-10-18 Pat Name: Kenisha Lopez Department: Room: Gender: Female Family Support Specialist: : [id number] Requested By: Julee Dominique Order Number: [id number] Fred MD: Jameel Haynes M.D. Measurements Intervals Anthony Rate: 90 P: 55 [place]: 167 QRS: 35 QRSD: 94 T: -17 QT: 374 QTc: 458 Interpretive Statements SINUS RHYTHM NONSPECIFIC T-WAVE ABNORMALITY Compared to ECG 10/18/2024 13:51:13 Sinus tachycardia no longer present T-wave abnormality still present Electronically Signed On 10-21-2024 23:32:17 CASE ASSISTANT by Jameel Haynes M.D. [email or web address]
[2024-10-18 19:43] LABS: Troponin 5 6HR 19.84 ng/L (0-10); Troponin 5 6HR Delta 3.84 ng/L (0-12)
[2024-10-18 19:57] LABS: MRSA PCR OZH (swab) NOT DETECTED (Not Detecte)
[2024-10-18 20:59] LABS: Glucose Point of Care 186 mg/dL (70-110)
[2024-10-18 21:15] LABS: Hepatitis A Antibody IgM Non-Reactive (Nonreactive); Hepatitis B Core AB, Total Non-Reactive (Nonreactive); Hepatitis B Surface AB < 3.5 (11.5-1000); Hepatitis B Surface Antigen Non-Reactive (Nonreactive); Hepatitis C Virus Antibody Non-Reactive (Nonreactive)
[2024-10-18] MEDS: heparin 5,000 unit/mL INJ 1 mL 5000 UNIT SUBCUT (21:17)
[2024-10-18] MEDS: pantoprazole 40 mg SDV IVP (21:17)
[2024-10-18] MEDS: sodium chloride 0.9% 1,000 ML 100 ML IV (21:18)
[2024-10-18 21:36] LABS: HIV 1 & 2 Antibody Non-Reactive (Non-Reactiv); HIV 1 & 2 Antigen Non-Reactive (Non-Reactiv)
--- NOTE | 2024-10-18 22:46 | PC.NURSE ---
Dr. Malcolm notified of pt taking home med Metformin 1000mg after CTA, requested to have pt drink another liter of Fluids. Pt informed and encouraged to drink the liter of fluid provided
[2024-10-18 23:32] LABS: Iron 51 ug/dL (37-145); Percent Saturation 13.3 % (20-50); Total Iron Binding Capacity 381 mcg/dl; Unsaturated Iron Binding 330 ug/dL (112-347)
[2024-10-19] VITALS (8 sets, daily range): BP systolic 130–164; BP diastolic 73–90; PULSE 73–84; RESP 14–17; TEMP 36.6–37.1; O2SAT 93–99
[2024-10-19 04:57] LABS: Basophils % 0.5 %; Eosinophils # 0.1 10^3/uL (0.0-0.8); Eosinophils % 1.7 %; Hematocrit 29.9 % (36-47); Lymphocytes # 2.1 10^3/uL (0.8-4.8); Lymphocytes % 31.5 %; Mean Corpuscular HGB Conc 31.1 g/dL (30-55); Mean Corpuscular Hemoglobin 26.8 pg (27-33); Mean Corpuscular Volume 86.2 fl (85-98); Mean Platelet Volume 9.8 fL (7.4-10.4); Monocytes # 0.7 10^3/uL (0.2-0.9); Monocytes % 10.2 %; Neutrophils # 3.63 10^3/uL (1.8-7.7); Neutrophils % 55.8 %; Nucleated Red Blood Cells % 0 %; Platelet Count 244 10^3/cmm (157-399); Red Blood Count 3.47 10^6/uL (3.85-5.65); Red Cell Distribution Width 15.1 % (12.1-15.1)
[2024-10-19 05:16] LABS: Alanine Aminotransferase 24 U/L (0-33); Albumin Level 3.4 g/dL (3.5-5.2); Alkaline Phosphatase 49 U/L (35-105); Anion Gap 15.9 (5-19); Aspartate Amino Transferase 28 U/L (0-32); Blood Urea Nitrogen 18 mg/dL (8-23); Calcium 8.3 mg/dL (8.5-10.5); Carbon Dioxide 23 mmol/L (22-29); Chloride 101 mmol/L (98-107); Creatinine Clr Calc Pharmacy 66.2874; Glucose 158 mg/dL (65-115); Magnesium 1.5 mg/dL (1.7-2.3); Osmolality Calculated 287 mOsm/kg (285-295); Phosphorus 3.3 mg/dL (2.5-4.5); Potassium 3.9 mmol/L (3.5-5.1); Sodium 136 mmol/L (136-145); Total Bilirubin 0.2 mg/dL (0.15-1.2); Total Protein 5.4 g/dL (6.6-8.7)
[2024-10-19 05:17] LABS: Chol HDL Ratio 2.89 mg/dL (0.0-4.40); Cholesterol 81 mg/dL (0-200); HDL Cholesterol 28 mg/dL (60-100); LDL Cholesterol Calculated 21 mg/dL (50-129); LDL HDL Ratio 0.75 RATIO (0.00-3.22); Lactic Sepsis W/Reflex 2.5 mmol/L (0.5-2.2); Triglycerides 160 mg/dL (0-150)
[2024-10-19 05:39] LABS: Estmated Average Glucose 157; Hemoglobin A1C 7.1 % (4.0-6.0)
[2024-10-19] MEDS: sodium chloride 0.9% 1,000 ML 100 ML IV ×2 (05:59→16:58)
[2024-10-19] MEDS: piperacillin-tazobactam 3.375 GM in sodium chloride 0.9% (plus) 50 ML IV ×3 (05:59→20:51)
[2024-10-19 06:06] LABS: Glucose Point of Care 144 mg/dL (70-110)
[2024-10-19] MEDS: citalopram 20 mg Tablet 10 MG PO (07:44)
[2024-10-19] MEDS: heparin 5,000 unit/mL INJ 1 mL 5000 UNIT SUBCUT ×2 (07:45→20:52)
[2024-10-19 08:15] LABS: Reflex Lactate Order REFLEX LACTIC ORDERD
[2024-10-19 09:13] LABS: Lactic Acid level (Lactate) 3.7 mmol/L (0.5-2.2)
[2024-10-19 10:47] LABS: Glucose Point of Care 242 mg/dL (70-110)
--- NOTE | 2024-10-19 14:29 | P.PN_ITS ---
Subjective 2 Subjective: No acute events overnight. As per nursing staff patient took her home metformin overnight by herself. Today morning complaining of mild abdominal discomfort. Had episode of diarrhea in the morning. Vitals/I&O/Wt Last Vital Signs Temp 97.9 F 10/19/24 11:19 Pulse 80 10/19/24 11:19 Resp 17 10/19/24 11:19 BP 149/76 10/19/24 11:19 Pulse Ox 94 10/19/24 11:19 O2 Del Method Room Air 10/19/24 11:19 10/18/24 10/19/24 10/19/24 22:59 06:59 14:59 Intake Total 3300 / 3300 1158.333 / 4458.333 1041.667 / 1041.667 Output Total 675 / 675 850 / 850 Balance 3300 / 3300 483.333 / 3783.333 191.667 / 191.667 Weight last 48 hrs Weight 88.961 kg Weight 86.863 kg Weight 86.545 kg Weight 85.275 kg Physical Exam 2 Narrative: General: No acute distress, AO x3, HEENT: PERRLA, pupils bilaterally equal and reactive Chest: Normal vesicular breath sounds, no added sounds, equal good air entry bilaterally CVS: S1-S2 regular, no murmurs, no tachycardia, no gallops, no rubs Abdomen: Soft, nontender, no organomegaly, bowel sounds present Neuro: No focal deficits, no facial deformity, AO x3, power 5/5 in all limbs Data 10/19/24 04:45 10/19/24 04:45 Micro: Microbiology 10/18/24 13:55 Blood Culture - Preliminary Blood SPECIMEN COLLECTED 10/18/24 13:55 Blood Culture - Preliminary Blood SPECIMEN COLLECTED A&P Assessment and plan (1) Sepsis: SIRS: Tachycardic, Febrile, Leukocytosis Source: Unknown End organ damage: UNRULY Lactic acid improved yesterday but again elevated today. Most likely in setting of no fluids overnight and repeat dose of metformin. Follow-up Patient did receive full 30 mL/kg BW. Continue IV fluids at 100 cc/h. Monitor blood pressures. Keep mean artery pressure 65 mmHg. Follow-up blood culture, urine culture not needed as UA negative, MRSA swab negative, trend procalcitonin negative, bacterial antigen negative. Continue with IV Zosyn. Vancomycin discontinued because MRSA swab negative. Check stool studies. Having diarrhea today. No particular source for infection for now. UA negative for UTI, patient remains on room air. CT chest abdomen pelvis negative for acute abnormality. If blood cultures remain negative for 48 hours we will plan to discontinue antibiotics. De-escalate antibiotics as per culture results. (2) Acute kidney injury: Resolved. Baseline creatinine normal. Medical reconciliation done for nephrotoxic drugs. Hold off on dose of lisinopril. IV fluid as above. Monitor BMP daily. Monitor electrolytes. (3) Weakness: (4) Elevated lactic acid level: Most likely in setting of sepsis along with metformin in setting of transaminitis which could be in setting of ENGLE. Continue to monitor. (5) Dehydration: (6) Transaminitis: Liver ultrasound appreciated Negative hepatitis panel, HIV. Monitor daily. Plan Anemia: Hemoglobin down to 9.3. Appreciate iron panel, vitamin B12 and folate levels. Baseline hemoglobin seems to be around 11. Denies any diarrhea or melena. Continue with Protonix daily. Check stool for occult blood. Patient did have colonoscopy within last few years which was reported normal. Type diabetes mellitus: A1c of 7.1. Patient takes metformin 1000 mg daily at home. Given recurrent admissions with elevated lactate it would be beneficial for patient to discontinue metformin and switch to a different brand of OHA. Will discuss further with the patient and family about the same. Full code Carb consistent diet Protonix for PUD prophylaxis Heparin 5000 every 12 hourly for DVT prophylaxis. Attestations 2 Medical Necessity Statement*: Requires further hospitalization for management of diarrhea concerns for sepsis, elevated lactate with resolution of UNRULY Diagnoses Sepsis A41.9 Acute kidney injury N17.9 Weakness R53.1 Elevated lactic acid level R79.89 Dehydration E86.0 Transaminitis R74.01
[2024-10-19 16:16] LABS: Glucose Point of Care 138 mg/dL (70-110)
[2024-10-19] MEDS: atorvastatin 40 mg Tablet 80 MG PO (16:57)
[2024-10-19 19:15] LABS: Lactic Sepsis W/Reflex 1.6 mmol/L (0.5-2.2)
[2024-10-19 20:44] LABS: C.Diff PCR (Lab) NEGATIVE (Negative)
[2024-10-19 20:51] LABS: Glucose Point of Care 188 mg/dL (70-110)
[2024-10-19] MEDS: pantoprazole 40 mg SDV IVP (20:52)
[2024-10-19] MEDS: acetaminophen 325 mg Tablet 650 MG PO (23:49)
[2024-10-20] VITALS (7 sets, daily range): BP systolic 142–196; BP diastolic 69–99; PULSE 71–79; RESP 16; TEMP 36.6–36.8; O2SAT 95–97; BMI 34.9
[2024-10-20] MEDS: sodium chloride 0.9% 1,000 ML 100 ML IV (02:33)
[2024-10-20 03:01] LABS: Basophils % 0.6 %; Eosinophils # 0.1 10^3/uL (0.0-0.8); Eosinophils % 2.9 %; Hematocrit 29.9 % (36-47); Lymphocytes # 1.7 10^3/uL (0.8-4.8); Lymphocytes % 35.6 %; Mean Corpuscular HGB Conc 31.4 g/dL (30-55); Mean Corpuscular Hemoglobin 26.5 pg (27-33); Mean Corpuscular Volume 84.2 fl (85-98); Mean Platelet Volume 10.1 fL (7.4-10.4); Monocytes # 0.5 10^3/uL (0.2-0.9); Monocytes % 9.7 %; Neutrophils # 2.42 10^3/uL (1.8-7.7); Nucleated Red Blood Cells % 0 %; Platelet Count 255 10^3/cmm (157-399); Red Blood Count 3.55 10^6/uL (3.85-5.65); Red Cell Distribution Width 14.8 % (12.1-15.1); White Blood Count 4.75 10^3/uL (3.29-11.43)
[2024-10-20 03:24] LABS: Alanine Aminotransferase 29 U/L (0-33); Albumin Level 3.7 g/dL (3.5-5.2); Alkaline Phosphatase 69 U/L (35-105); Anion Gap 14.2 (5-19); Aspartate Amino Transferase 36 U/L (0-32); Blood Urea Nitrogen 9 mg/dL (8-23); Calcium 8.2 mg/dL (8.5-10.5); Carbon Dioxide 25 mmol/L (22-29); Chloride 101 mmol/L (98-107); Creatinine Clr Calc Pharmacy 67.2571; Globulin 2.3 g/dL (1.3-4.6); Glucose 151 mg/dL (65-115); Osmolality Calculated 286 mOsm/kg (285-295); Potassium 3.2 mmol/L (3.5-5.1); Sodium 137 mmol/L (136-145); Total Bilirubin 0.2 mg/dL (0.15-1.2)
[2024-10-20] MEDS: citalopram 20 mg Tablet 10 MG PO (05:35)
[2024-10-20] MEDS: piperacillin-tazobactam 3.375 GM in sodium chloride 0.9% (plus) 50 ML IV (05:35)
[2024-10-20 06:50] LABS: Glucose Point of Care 154 mg/dL (70-110)
[2024-10-20] MEDS: heparin 5,000 unit/mL INJ 1 mL 5000 UNIT SUBCUT (08:25)
--- NOTE | 2024-10-20 10:08 | P.DS_ITS ---
Discharge Providers Date of Admission: 10/18/24 18:40 Date of Discharge: October 20, 2024 Attending Provider at Admission: Jovanny Wu MD Attending Provider at Discharge: Jovanny Wu MD Primary Care Provider: Uvaldo Mcfadden DO Diagnoses at Discharge Discharge Diagnosis (1) Sepsis: Status: Acute (2) Acute kidney injury: Status: Acute (3) Weakness: Status: Acute (4) Elevated lactic acid level: Status: Acute (5) Dehydration: Status: Acute (6) Transaminitis: Status: Acute Reason for Visit Reason for Visit: abn EKG (sent by ) Hospital Course Hospital Course Kenisha Lopez is a 74 year old female with past medical history of hypertension, type 2 diabetes mellitus, hyperlipidemia presents to the ER today from primary care's office because of generalized weakness which has been getting worse since Wednesday. Today is Wednesday. Patient states her appetite is extremely poor because of poor appetite along with few episodes of nausea but no vomiting. She denies any diarrhea or constipation. Denies any dysuria, headaches, difficulty in breathing, sick contacts. In the ER she was found to be tachycardic on presentation with a normal blood pressure, white count of 14,000 creatinine of 1.2, lactate of 5.1. Given concerns for sepsis with elevated lactate she was given sepsis fluid bolus along with broad-spectrum IV antibiotics. Patient was admitted to the hospital further evaluation and management with concerns of possible sepsis given elevated lactate and white count on admission. She was empirically started on broad-spectrum IV antibiotics, IV hydration. Her blood cultures during hospitalization remain negative. It is believed her elevated lactate is most likely in setting of home use of metformin in setting of liver disorder most likely ENGLE. She has been discharged back home in hemodynamically stable condition on all her home medications except metformin. Metformin has been switched over to Januvia. She is advised to check her blood sugars and blood pressure daily at home and maintain a blood pressure and sugar diary and follow-up with a primary care provider within next 2 weeks for further adjustment of medications as needed. She should have a repeat A1c done in 6 [facility]. Physical Exam Narrative: General: No acute distress, AO x3, HEENT: PERRLA, pupils bilaterally equal and reactive Chest: Normal vesicular breath sounds, no added sounds, equal good air entry bilaterally CVS: S1-S2 regular, no murmurs, no tachycardia, no gallops, no rubs Abdomen: Soft, nontender, no organomegaly, bowel sounds present Neuro: No focal deficits, no facial deformity, AO x3, power 5/5 in all limbs Discharge Data Studies Completed and Pending Completed Studies During Hospitalization Category Date Time Status CTA chest CT abdomen pelvis [CT angio chest w abd pel w Cat Scan 10/18/24 13:44 Completed con] Stat XR chest 1V portable [id number] Stat Exams 10/18/24 11:48 [place] liver [id number] Stat Ultrasound 10/18/24 17:35 Completed Pending at discharge Category Date Time Status Blood Culture Stat Lab 10/18/24 13:55 Results OVA and Parasites, Conc and PE Routine Lab 10/19/24 18:50 Received Salmonella / Shigella / Campy Routine Lab 10/19/24 18:50 Received Radiology Impressions Chest X-Ray 10/18/24 11:48 Impression: Atherosclerosis. Chest/Abdomen/Pelvis CT 10/18/24 13:44 IMPRESSION: 1. Prior cholecystectomy. No intrahepatic bile duct dilatation. 2. No pulmonary embolism. 3. New subpleural 8.6 mm noncalcified nodule LEFT lower lobe. Recommend follow- up chest CT in 3 months. 4. No ascites or adenopathy. 5. No GI tract obstruction or ischemic changes. 6. Very tiny amount of free fluid in the pelvis of uncertain etiology. Liver Ultrasound 10/18/24 17:35 IMPRESSION: 1. Fatty liver. 2. Otherwise unremarkable right upper quadrant ultrasound. Microbiology 10/19/24 22:35 Stool Routine Collection Occult Blood (FIT) - Final 10/19/24 18:50 Stool Stool Lactoferrin - Final 10/18/24 13:55 Blood Blood Culture - Preliminary NEGATIVE TO DATE 10/18/24 13:55 Blood Blood Culture - Preliminary NEGATIVE TO DATE Laboratory Results WBC 4.75 10^3/uL (3.29-11.43) 10/20/24 02:33 RBC 3.55 10^6/uL (3.85-5.65) L 10/20/24 02:33 Hgb 9.40 g/dL (11.27-16.99) L 10/20/24 02:33 Hct 29.9 % (36-47) L 10/20/24 02:33 MCV 84.2 fl (85-98) L 10/20/24 02:33 MCH 26.5 pg (27-33) L 10/20/24 02:33 MCHC 31.4 g/dL (30-55) 10/20/24 02:33 RDW 14.8 % (12.1-15.1) 10/20/24 02:33 Plt Count 255 10^3/cmm (157-399) 10/20/24 02:33 MPV 10.1 fL (7.4-10.4) 10/20/24 02:33 Neut % (Auto) 51.0 % 10/20/24 02:33 Lymph % (Auto) 35.6 % 10/20/24 02:33 Cavalier % (Auto) 9.7 % 10/20/24 02:33 Eos % (Auto) 2.9 % 10/20/24 02:33 Baso % (Auto) 0.6 % 10/20/24 02:33 Neut # (Auto) 2.42 10^3/uL (1.8-7.7) 10/20/24 02:33 Lymph # (Auto) 1.7 10^3/uL (0.8-4.8) 10/20/24 02:33 Cavalier # (Auto) 0.5 10^3/uL (0.2-0.9) 10/20/24 02:33 Eos # (Auto) 0.1 10^3/uL (0.0-0.8) 10/20/24 02:33 Baso # (Auto) 0.0 10^3/uL (0.0-0.1) 10/20/24 02:33 Nucleated RBC % (auto) 0 % 10/20/24 02:33 Nucleated RBCs # 0.0 /100WBC 10/20/24 02:33 PT 12.40 SECONDS (12.1-14.9) 10/18/24 12:20 INR 0.86 (0.8-1.2) 10/18/24 12:20 Sodium 137 mmol/L (136-145) 10/20/24 02:33 Potassium 3.2 mmol/L (3.5-5.1) L 10/20/24 02:33 Chloride 101 mmol/L (98-107) 10/20/24 02:33 Carbon Dioxide 25 mmol/L (22-29) 10/20/24 02:33 Anion Gap 14.2 (5-19) 10/20/24 02:33 BUN 9 mg/dL (8-23) 10/20/24 02:33 Creatinine 0.7 mg/dL (0.5-0.9) 10/20/24 02:33 GFR Calculation Not Reportable 10/20/24 02:33 Glucose 151 mg/dL (65-115) H 10/20/24 02:33 POC Glucose 154 mg/dL (70-110) H 10/20/24 06:40 Estimat Average Glucose 157 10/19/24 04:45 Hemoglobin A1c 7.1 % (4.0-6.0) H 10/19/24 04:45 Calculated Osmolality 286 mOsm/kg (285-295) 10/20/24 02:33 Lactic Acid 1.6 mmol/L (0.5-2.2) 10/19/24 18:17 Lactic Acid (Sepsis) 3.7 mmol/L (0.5-2.2) H 10/19/24 08:41 Calcium 8.2 mg/dL (8.5-10.5) L 10/20/24 02:33 Phosphorus 3.3 mg/dL (2.5-4.5) 10/19/24 04:45 Magnesium 1.5 mg/dL (1.7-2.3) L 10/19/24 04:45 Iron 51 ug/dL (37-145) 10/18/24 12:20 TIBC 381 mcg/dl 10/18/24 12:20 % Saturation 13.3 % (20-50) L 10/18/24 12:20 Unsat Iron Binding 330 ug/dL (112-347) 10/18/24 12:20 Total Bilirubin 0.2 mg/dL (0.15-1.2) 10/20/24 02:33 AST 36 U/L (0-32) H 10/20/24 02:33 ALT 29 U/L (0-33) 10/20/24 02:33 Alkaline Phosphatase 69 U/L (35-105) 10/20/24 02:33 Troponin T Baseline 16 ng/L (0-10) H 10/18/24 12:20 Troponin T 120 Minute 20.85 ng/L (0-10) H 10/18/24 14:00 Delta Troponin T 4.85 ABS# (0-10) 10/18/24 14:00 Troponin T Hi Sens 6Hr 19.84 ng/L (0-10) H 10/18/24 18:55 Troponin T Hi Sens 6Hr Delta 3.84 ng/L (0-12) 10/18/24 18:55 Total Protein 6.0 g/dL (6.6-8.7) L 10/20/24 02:33 Albumin 3.7 g/dL (3.5-5.2) 10/20/24 02:33 Globulin 2.3 g/dL (1.3-4.6) 10/20/24 02:33 Triglycerides 160 mg/dL (0-150) H 10/19/24 04:45 Cholesterol 81 mg/dL (0-200) 10/19/24 04:45 LDL Cholesterol, Calc 21 mg/dL (50-129) L 10/19/24 04:45 HDL Cholesterol 28 mg/dL (60-100) L 10/19/24 04:45 LDL/HDL Ratio 0.75 RATIO (0.00-3.22) 10/19/24 04:45 Cholesterol/HDL Ratio 2.89 mg/dL (0.0-4.40) 10/19/24 04:45 Procalcitonin 0.10 ng/mL (0-0.5) 10/19/24 04:45 TSH 1.60 uIU/mL (0.27-4.20) 10/18/24 12:20 Urine Color Yellow (Yellow) 10/18/24 14:53 Urine Appearance Clear (CLEAR) 10/18/24 14:53 Urine pH 5.5 (5-7) 10/18/24 14:53 Ur Specific Ivor 1.045 (1.005-1.030) H 10/18/24 14:53 Urine Protein 1+ (Negative) A 10/18/24 14:53 Urine Glucose (UA) Negative (Normal) 10/18/24 14:53 Urine Ketones Negative (Negative) 10/18/24 14:53 Urine Blood Negative (Negative) 10/18/24 14:53 Urine Nitrate Negative (Negative) 10/18/24 14:53 Urine Bilirubin Negative (Negative) 10/18/24 14:53 Urine Urobilinogen 0.2 mg/dL (Negative) 10/18/24 14:53 Ur Leukocyte Esterase Negative (Negative) 10/18/24 14:53 Urine RBC 0-2 /hpf (0-2) 10/18/24 14:53 Urine WBC 0-5 /hpf (0-5) 10/18/24 14:53 Ur Squamous Epith Cells 0-5 /hpf (0-5) 10/18/24 14:53 Ur Renal Epithelial Cell 0-4 /hpf 10/18/24 14:53 Amorphous Sediment Not Reportable 10/18/24 14:53 Urine Bacteria None seen /hpf (NONE) 10/18/24 14:53 Hyaline Casts 43.00 /lpf 10/18/24 14:53 Ur Oval Fat Bodies 1+ /hpf 10/18/24 14:53 Nasal MRSA (PCR) Not detected (Not Detecte) 10/18/24 18:38 C. difficile (PCR) Negative (Negative) 10/19/24 18:50 Coronavirus (PCR) Negative (Negative) 10/18/24 14:02 Hepatitis A IgM Ab Non-reactive (Nonreactive) 10/18/24 12:20 Hep Bs Antigen Non-reactive (Nonreactive) 10/18/24 12:20 Hep Bs Antibody < 3.5 (11.5-1000) L 10/18/24 12:20 Hep B Core Total Ab Non-reactive (Nonreactive) 10/18/24 12:20 Hepatitis C Antibody Non-reactive (Nonreactive) 10/18/24 12:20 HIV 1&2 Ab & HIV 1 Ag Non-reactive (Non-Reactiv) 10/18/24 12:20 HIV 1&2 Antibody Non-reactive (Non-Reactiv) 10/18/24 12:20 Influenza A (PCR) Negative (Negative) 10/18/24 14:02 Influenza Type B (PCR) Negative (Negative) 10/18/24 14:02 RSV (PCR) Negative (Negative) 10/18/24 14:02 Vitals Last Vital Signs Temp 97.8 F 10/20/24 08:00 Pulse 76 10/20/24 08:00 Resp 16 10/20/24 08:00 BP 180/70 10/20/24 08:05 Pulse Ox 97 10/20/24 08:00 O2 Del Method Room Air 10/20/24 08:00 Discharge Plan Discharge Patient Disposition: Home Condition: Stable Prescriptions: New Januvia 100 mg tablet 100 mg PO DAILY Qty: 30 0RF loperamide [Anti-Diarrheal (loperamide)] 2 mg capsule 2 mg PO QID PRN (Reason: loose stool) Qty: 10 0RF Continued atorvastatin 80 mg tablet 80 mg PO QPM hydrochlorothiazide 25 mg tablet 25 mg PO DAILY@0630 lisinopril 40 mg tablet 40 mg PO DAILY@0630 citalopram 10 mg tablet 10 mg PO DAILY@0630 fluticasone propionate 50 mcg/actuation spray,suspension 1 spray INTRANASAL DAILY PRN (Reason: allergies) Discontinued metformin 1,000 mg tablet 500 mg PO BID@0630,1830 Qty: 30 0RF cyclobenzaprine 10 mg tablet 5 mg PO TID Qty: 10 0RF Discharge Orders: Discharge Order (Routine); Ordered 10/20/24 Ordered By: Jovanny Wu Referrals: Arlette Trujillo PA [Physician] - 10/27/24 10:20 am Discharge Diet: Cardiac and Diabetic Discharge Activity: Resume usual activity and Increase activity as tolerated Patient Instructions: Dehydration - Adult, Loperamide (By mouth) (Imodium A-D, Imotil, Anti-Diarrheal, Diamode), Sitagliptin (By mouth) (Januvia, Zituvio), Acute Kidney Injury (GEN), Sepsis (GEN), Opioid Safety Activity Restrictions/Additional Instructions: Please check your blood sugar and blood pressure daily at home. Maintain a blood sugar and blood pressure diary. He should check your blood sugar fasting every morning. Follow-up with a primary care provider within next 2 weeks with a blood sugar and a pressure diary for further adjustment of medications. Should have a repeat A1c in 6 months. Discharge Attestations Time Spent in Discharge Care*: greater than 30 min Specific Discharge Activities: educating patient, educating and/or supporting family/caregiver, discussing with pcp/other providers, discussing with casey saw operator/social workers/dc planners, documenting/other paperwork and evaluating patient/reviewing data Status at Discharge: Cognitive status at discharge: cognitively intact , Behavioral status at discharge: cooperative , Functional status at discharge: independent ambulation , Overall status at discharge: patient is back to baseline Quality Metrics Clinical Quality Measures [ No reported AMI, CVA or VTE this stay] Coding Level of Care Code 81152 Total time (in minutes) for Discharge: 60 Diagnoses Sepsis A41.9 Acute kidney injury N17.9 Weakness R53.1 Elevated lactic acid level R79.89 Dehydration E86.0 Transaminitis R74.01
--- NOTE | 2024-10-20 11:09 | PC.SOCIAL ---
IMM Updated Updated pt on IMM.. No questions voiced. Provided pt a copy. Initialed, dated, & timed a copy & placed in chart.
[2024-10-20 11:21] LABS: Glucose Point of Care 226 mg/dL (70-110)
[2024-10-20] MEDS: FUROsemide 20 mg Tablet PO (11:33)
[2024-10-20] MEDS: potassium chloride ER 20 mEq Tablet 40 MEQ PO (11:33)
[2024-10-20] MEDS: lisinopril 20 mg Tablet 40 MG PO (11:33)
--- NOTE | 2024-10-20 11:42 | PC.NURSE ---
Calls verbal order for [facility] meds to beds d/t [facility] being unable to fill prescription.
== END 2024-10-20 12:42 | disposition home or self-care (01) | DRG 641 ==
LOC: ER 16:50 → MEDSURG 18:40
PROVIDERS: Physician Assistant; Admitting Provider Student in an Organized Health Care Education/Training Program; Emergency Provider Emergency Medicine; PCP Internal Medicine; Visit Provider Student in an Organized Health Care Education/Training Program
DX: E86.0 Dehydration (principal); N17.9 Acute kidney failure, unspecified; E87.20 Acidosis, unspecified; I10 Essential (primary) hypertension; E11.9 Type 2 diabetes mellitus without complications; E78.5 Hyperlipidemia, unspecified; Z79.84 Long term (current) use of oral hypoglycemic drugs; Z90.49 Acquired absence of other specified parts of digestive tract; R19.7 Diarrhea, unspecified; D64.9 Anemia, unspecified; K75.81 Nonalcoholic steatohepatitis (NASH)
CPT/HCPCS: 36415; 36416; 71045; 71275; 74177; 76705; 80053; 80061; 81001; 82274; 82962; 83036; 83540; 83550; 83605; 83630; 83735; 84100; 84145; 84443; 84484; 85025; 85610; 86705; 86706; 86709; 86803; 87040; 87045; 87177; 87209; 87340; 87427; 87449; 87493; 87637; 87806; 93005; 94664; 96365; 96367; 96372; 96375; 99285; J1644; J2405; J2470; J2543; J3370; J7030; J7050

== ENCOUNTER 2025-01-29 14:38 | Outpatient (CLI) | payer MEDICARE, OTHER, SELFPAY ==
--- NOTE | 2025-01-29 14:42 | CT_ITS ---
WS: [id number] CT chest w con* [id number] HISTORY: LUNG NODULE TECHNIQUE: Axial imaging performed through the thorax. Coronal and sagittal reformats are submitted. All CT scans at [facility] use at least one of these dose optimization techniques: automated exposure control; mA and/or kV adjustment per patient size (includes targeted exams where dose is matched to clinical indication); or iterative reconstruction. CONTRAST: Omnipaque 350; 100 mL IV. DLP: 404.06 mGy.cm COMPARISON: 10/18/2024 Lungs and central airway: Lungs are much better aerated on today's exam as compared to 10/18/2024. There is a well-circumscribed subpleural pulmonary nodule in the LEFT upper lobe. This nodule was described in the LEFT lower lobe on the prior exam. The location is actually in the LEFT upper lobe. Maximum diameter of 8.6 mm which is similar to the prior study. No additional nodule or mass. No pneumonia. Pleura: Normal. No pleural effusion. Heart and pericardium: Mild LEFT heart enlargement. Mediastinum and tami: No mediastinum or hilar adenopathy. Vessels: Mild atherosclerosis aorta. No aneurysm. Normal size pulmonary artery. Bovine arch. Chest wall and lower neck: No soft tissue masses. Upper abdomen: Small hiatal hernia. Hepatic steatosis. No adrenal mass. 1.1 cm LEFT renal cyst. Prior cholecystectomy. Osseous structures: No destructive process. CT/CT chest w con* [id number] IMPRESSION: 1. No interval change in the LEFT pulmonary nodule. Nodule was previously desc ribed in the LEFT lower lobe. The nodule is actually in the LEFT upper lobe, th e LEFT fissure is better identified on today's examination due to better inspir atory effort. Nodule measures 8.6 mm. Recommend follow-up chest CT in 6 months. 2. No mediastinal or hilar adenopathy. 3. No adrenal mass. 4. Mild atherosclerosis aorta. 5. Hepatic steatosis. 6. Prior cholecystectomy.
[2025-01-29] MEDS: iohexol 350 mg/mL 500 mL Btl (per mL) IV (15:07)
== END 2025-01-29 14:39 | disposition home or self-care (01) ==
LOC: RAD 14:39
PROVIDERS: PCP Physician Assistant; Visit Provider Physician Assistant
DX: R91.1 Solitary pulmonary nodule (principal); I70.0 Atherosclerosis of aorta; K76.0 Fatty (change of) liver, not elsewhere classified; Z90.49 Acquired absence of other specified parts of digestive tract; I51.7 Cardiomegaly; K44.9 Diaphragmatic hernia without obstruction or gangrene; N28.1 Cyst of kidney, acquired
CPT/HCPCS: 71260

== ENCOUNTER 2025-04-04 14:40 | Emergency (ER) | payer MEDICARE, OTHER, SELFPAY ==
[2025-04-04] VITALS (11 sets, daily range): BP systolic 112–154; BP diastolic 63–99; PULSE 81–101; RESP 16–19; TEMP 36.8; O2SAT 93–96; BMI 33.8
--- NOTE | 2025-04-04 14:41 | XR_ITS ---
WS: [id number] Exam: XR chest 1V portable [id number] Date/Time of Exam: 04/04/2025 2:41 PM Reason For Exam: sob Comparison 10/18/2024. Lungs are fully expanded and clear. Normal cardiomediastinal silhouette. No pleural effusion. Aortic atherosclerosis. Anchoring screw in the RIGHT humeral head. XR/XR chest 1V portable [id number] IMPRESSION: 1. No acute cardiopulmonary finding.
--- OUTSIDE RECORDS SUMMARY | 2025-04-04 14:46 | XMS_ITS | Data Portability ---
Author Organization ALEKSANDAR [facility], Nixon[facility]ixon[facility], [facility] Address [address] [address] Care Team Providers Care Independent Freight Agent Name Role Phone ARLETTE YOUNGBLOOD Primary Care Provider Unavailabl e Assessment No assessment recorded. Plan of Treatment Reminders Order Date Submit Date Provider Last Modified By Organization Details Last Modified Time Details Appointments OFFICE VISIT 2024 08:20A Dg YOUNGBLOOD PA-C Not available Not available Not available Lab urinalysi s, dipstick [address] [facility] ([facility]), [address] [place] [address], [address], 04/02/2025 09:30:37 culture, urine 2024 025 [place] [address] [email or web address], [address] [place] [address], [address], ALEKSANDAR Reece, [address], 04/02/2025 09:24:25 culture, urine 2024 025 [place] [email or web address], [address] [place] [address] 248, [address], FerrumALEKSANDAR, [address], 01/28/2025 22:42:31 urinalysi s, dipstick [address] [facility] ([facility]), [address] [place] [address], [address], 01/27/2025 15:32:19 Referral None recorded. Procedures None recorded. Surgeries None recorded. Imaging None recorded. Medication Orders fluconazo le 150 mg tablet 2024 025 [id number], [address], [place], [place], [id number], 04/02/2025 09:42:15 clotrimaz ole 1 % topical cream 2024 025 [facility] #[id number], [address], [place], [place], [id number], 04/02/2025 09:42:16 doxycycli ne hyclate 100 mg tablet 2024 025 [facility] #[id number], [address], [place], [place], [id number], 03/10/2025 05:01:11 metformin 1,000 mg tablet [email or web address], [address], [place], [place], [id number], 12/28/2024 09:55:43 Patient TargetsNo targets recorded. Patient InstructionsNo instructions recorded. Reason for Referral None Reported. Results Created Date Observation Date Name Description Value Unit Range Abnormal Flag Note LastModifiedBy Organization Detail LastModifiedTime 12/27/1912/26/2024 CBC WBC 4.7 x10 4.0-10 .5 Not Available [facility] [address] [facility] [address], [place], [address], 12/26/2024 08:53:38 12/27/1912/26/2024 CBC RBC 4.44 x10 3.50-5 .50 Not Available [facility] [address] [facility] [address], [place], [address], 12/26/2024 08:53:38 04/01/20 25 12/26/2024 CBC HGB 11.9 g/dL 12.0-1 6.0 low Not Available [facility] [address] [facility] 1, [place], [address], 12/26/2024 08:53:38 12/27/19 25 12/26/2024 CBC HCT 36.9 % 37.0-4 7.0 low Not Available [facility] [address] [facility] 1, [place], [address], 12/26/2024 08:53:38 12/27/19 25 12/26/2024 CBC MCV 83.1 fL 80.0-9 9.9 Not Available [facility] [address] [facility] 1, [place], [address], 12/26/2024 08:53:38 12/27/19 25 12/26/2024 CBC MCH 26.7 pg 27.0-3 2.0 low Not Available [facility] [address] [facility] 1, [place], [address], 12/26/2024 08:53:38 12/27/19 25 12/26/2024 CBC MCHC 32.1 g/dL 32.0-3 6.0 Not Available [facility] [address] [facility] 1, [place], [address], 12/26/2024 08:53:38 12/27/1912/26/2024 CBC RDW 15.8 % 11.5-1 4.5 high Not Available [facility] [address] [facility] 1, [place], [address], 12/26/2024 08:53:38 12/27/19 25 12/26/2024 CBC plt 292.7 x10 140.0- 451.0 Not Available [facility] [address] [facility], [place], [address], 12/26/2024 08:53:38 12/27/19 25 12/26/2024 CBC lymphocytes % 33.7 % 20.0-5 0.0 Not Available [facility] [address] [facility] 1, [place], [address], 12/26/2024 08:53:38 12/27/19 25 12/26/2024 CBC granulcytes % 52.7 % 30.0-7 0.0 Not Available [facility] [address] [facility] 1, [place], [address], 12/26/2024 08:53:38 12/27/19 25 12/26/2024 CBC monocytes % 12.0 % 2.0-16 .0 Not Available [facility] [address] [facility] 1, [place], [address], 12/26/2024 08:53:38 12/27/19 25 12/26/2024 CBC granulcytes# 2.5 x10 Not Sheri ilable [facility] [address] [facility] 1, [place], [address], 12/26/2024 08:53:38 12/27/19 25 12/26/2024 CBC lymphocytes # 1.6 x10 Not Available [facility] [address] [facility] 1, [place], [address], 12/26/2024 08:53:38 12/27/1912/26/2024 CBC monocytes # 0.6 x10 Not Avai lable [facility] [address] [facility] 1, [place], [address], 12/26/2024 08:53:38 12/27/19 25 12/26/2024 CMP (FEMA LE) glucose 121.0 mg/dL 60.0-9 9.0 high Not Available [facility] [address] [facility] 1, [place], [address], 12/26/2024 09:38:51 12/27/19 25 12/26/2024 CMP (FEMA LE) BUN (blood urea nitrogen) 12.0 mg/dL 10.0-2 6.0 Not Available [place] [address] [facility] 1, [place], [address], 12/26/2024 09:38:51 12/27/19 25 12/26/2024 CMP (FEMA LE) creatinine (serum) 0.7 mg/dL 0.4-1. 5 Not Available [place] [address] [address] [address], [place], [address], 12/26/2024 09:38:51 12/27/19 25 12/26/2024 CMP (FEMA LE) BUN/creatini ne ratio 17.14 ratio Not Available [place] [address], [place], [address], 12/26/2024 09:38:51 12/27/19 25 12/26/2024 CMP (FEMA LE) eGFR calculated 87.4 Not Available [place] [address] [address], [place], [address], 12/26/2024 09:38:51 12/27/19 25 12/26/2024 CMP (FEMA LE) total protein 7.7 g/dL 6.0-8. 5 Not Available [address] [address] [address], [place], [address], 12/26/2024 09:38:51 12/27/19 25 12/26/2024 CMP (FEMA LE) total bilirubin 0.4 mg/dL 0.2-1. 3 Not Available [address] [address] [address], [place], [address], 12/26/2024 09:38:51 12/27/19 25 12/26/2024 CMP (FEMA LE) albumin 4.7 g/dL 3.5-5. 5 Not Available [facility] [address] [facility], [place], [address], 12/26/2024 09:38:51 12/27/19 25 12/26/2024 CMP (FEMA LE) globulin 3.0 calc Not Available [facility] [address] [facility] 1, [place], [address], 12/26/2024 09:38:51 12/27/19 25 12/26/2024 CMP (FEMA LE) AST (SGOT) 59.0 U/L 0.0-46 .0 high Not Available [facility] [address] [facility] 1, [place], [address], 12/26/2024 09:38:51 12/27/19 25 12/26/2024 CMP (FEMA LE) altv (SGPT) 56.0 U/L 13.0-6 9.0 normal Not Available [facility] [address] [facility] 1, [place], [address], 12/26/2024 09:38:51 12/27/19 25 12/26/2024 CMP (FEMA LE) A/G ratio 1.6 ratio Not Available [facility] [address] [facility] 1, [place], [address], 12/26/2024 09:38:51 12/27/19 25 12/26/2024 CMP (FEMA LE) ALP phos 74.0 U/L 30.0-1 40.0 normal Not Available [facility] [address] [facility] 1, [place], [address], 12/26/2024 09:38:51 12/27/19 25 12/26/2024 CMP (FEMA LE) calcium 9.4 mg/dL 8.4-10 .5 Not Available [facility] [address] [facility] 1, [place], [address], 12/26/2024 09:38:51 12/27/19 25 12/26/2024 CMP (FEMA LE) sodium 134.0 mmol/ L 136.0- 145.0 low Not Available [facility] [address] [facility] 1, [place], [address], 12/26/2024 09:38:51 12/27/19 25 12/26/2024 CMP (FEMA LE) potassium 4.0 mmol/ L 3.5-5. 1 Not Available [facility] [address] [facility] 1, [place], [address], 12/26/2024 09:38:51 12/27/19 25 12/26/2024 CMP (FEMA LE) chloride 95.0 mmol/ L 98.0-1 10.0 abnormal Not Available [facility] [address] [facility] 1, [place], [address], 12/26/2024 09:38:51 12/27/19 25 12/26/2024 CMP (FEMA LE) C02 30.0 mmol/ L 22.0-3 1.0 Not Available [facility] [address] [facility] 1, [place], [address], 12/26/2024 09:38:51 12/27/1912/26/2024 CMP (FEMA LE) anion gap 9.0 calc Not Available [facility] [address] [facility] 1, [place], [address], 12/26/2024 09:38:51 12/27/19 25 12/26/2024 CMP (FEMA LE) osmolality 278.1 calc Not Available [facility] [address] [facility] 1, [place], [address], 12/26/2024 09:38:51 12/27/19 25 12/26/2024 LIPID PROFI LE (FEMA LE) cholesterol 127.0 mg/dL 0.0-20 0.0 Not Available [facility] [address] [address], [place], [address], 12/26/2024 09:38:54 12/27/19 25 12/26/2024 LIPID PROFI LE (FEMA LE) trig 154.0 mg/dL 0.0-15 0.0 high Not Available [facility] [address] [facility] 1, [place], [address], 12/26/2024 09:38:54 12/27/19 25 12/26/2024 LIPID PROFI LE (FEMA LE) HDL - direct 38.0 mg/dL >40.0 low Not Available [facility] [address] [address], [place], [address], 12/26/2024 09:38:54 12/27/19 25 12/26/2024 LIPID PROFI LE (FEMA LE) VLDL - direct 30.8 mg/dL Not Available [facility] [address] [address], [place], [address], 12/26/2024 09:38:54 12/27/19 25 12/26/2024 LIPID PROFI LE (FEMA LE) LDL - direct 58.2 mg/dL 0.0-13 0.0 Not Available [facility] [address] [address], [place], [address], 12/26/2024 09:38:54 12/27/19 25 12/26/2024 TSH TSH 1.17 uIU/m L 0.49-3 .82 normal Not Available [facility] [address] [address], [place], [address], 12/26/2024 11:14:54 12/27/19 25 12/26/2024 HBA1C hemaglobin A1C 8.2 4.2-6. 5 high Not Available [facility] [address] [facility] 1, [place], [address], 12/26/2024 12:01:03 12/27/19 25 12/27/2024 ALBUM IN, RANDO M URINE W/CRE ATINI NE creatinine, random urine 59 mg/dL 20-275 normal Not Available [place] [address] [place], [address], 12/27/2024 09:20:51 12/27/1912/27/2024 ALBUM IN, RANDO M URINE W/CRE ATINI NE albumin, urine 12.7 mg/dL see note: normal Refer ence Range : Refer ence Range Not estab lishe d Not Available [place] [address] [place], [address], 12/27/2024 09:20:51 12/27/19 25 12/27/2024 ALBUM IN, RANDO M URINE W/CRE ATINI NE albumin/crea tinine ratio, random urine 215 mg/g_ creat <30 high The ADA defin es abnor malit ies in album in excre tion as follo ws: Album inuri a Categ ory Resul t (mg/g creat inine ) Gayathri l to Mildl y incre ased <30 Moder ately incre ased 30-29 9 Sever claudia incre ased > OR = 300 The ADA recom mends that at least two of three speci mens colle cted withi n a 3-6 month perio d be abnor mal befor e consi dominick g a patie nt to be withi n a diagn ostic categ ory. Not Available [facility] [address] [place], [address], 12/27/2024 09:20:51 01/28/20 25 01/28/2025 CULTU RE, URINE , ROUTI NE culture, urine, routine SEE NOTE CULTU RE, URINE , ROUTI NE Micro Numbe r: [id number] Test Statu s: Final Speci men Sourc e: Not given Speci men Quali ty: Adequ ate Resul t: Mixed genit al germania isola kurtis. These super ficia l bacte russell are not indic ative of a urina ry tract infec tion. No furth er organ ism ident ifica tion is warra nted on this speci men. If clini altagracia indic ated, recol lect clean -catc h, mid-s tream urine and trans gustabo immed iatel y to Urine Cultu re Trans port Tube. Not Available [facility] [address] [place], [address], 01/28/2025 22:42:31 01/28/20 25 01/27/2025 urina lysis , dipst ick Leukocytes Small Not Available [facility] [address] [place] [address], [address], 01/27/2025 15:26:12 01/28/20 25 01/27/2025 urina lysis , dipst ick Nitrite negati ve Not Available [facility] ([facility]) [address] [place], [address], 01/27/2025 15:26:12 01/28/20 25 01/27/2025 urina lysis , dipst ick Urobilinogen .2 Not Available [facility] ([facility]) [address] [place], [address], 01/27/2025 15:26:12 01/28/20 25 01/27/2025 urina lysis , dipst ick Protein 100 Not Available [facility] ([facility]) [address] [place] [address], [address], 01/27/2025 15:26:12 01/28/20 25 01/27/2025 urina lysis , dipst ick pH 7.0 Not Available [facility] ([facility]) [address] [place], [address], 01/27/2025 15:26:12 01/28/20 25 01/27/2025 urina lysis , dipst ick Blood Negati ve Not Available [facility] ([facility]) [address] [place], [address], 01/27/2025 15:26:12 01/28/20 25 01/27/2025 urina lysis , dipst ick Specific [place] 1.015 Not Available [facility] ( [facility]) [address] [place], [address], 01/27/2025 15:26:12 01/28/20 25 01/27/2025 urina lysis , dipst ick Ketone Trace Not Available [facility] ([facility]) [address] [place], [address], 01/27/2025 15:26:12 01/28/20 25 01/27/2025 urina lysis , dipst ick Bilirubin Negati ve Not Available [facility] ([facility]) [address] [place], [address], 01/27/2025 15:26:12 01/28/20 25 01/27/2025 urina lysis , dipst ick Glucose Negati ve Not Available [facility] ([facility]) [address] [place], [address], 01/27/2025 15:26:12 01/28/20 25 01/27/2025 urina lysis , dipst ick Appearance Clear Not Available [facility] ([facility]) [address] [place], [address], 01/27/2025 15:26:12 01/28/20 25 01/27/2025 urina lysis , dipst ick Color Yellow Not Available [facility] ([facility]) [address] [place], [address], 01/27/2025 15:26:12 04/02/20 25 04/02/2025 urina lysis , dipst ick Leukocytes Trace Not Available [facility] ([facility]) [address] [place], [address], 04/02/2025 09:16:10 04/02/20 25 04/02/2025 urina lysis , dipst ick Nitrite negati ve Not Available [facility] ([facility]) [address] [place], [address], 04/02/2025 09:16:10 04/02/20 25 04/02/2025 urina lysis , dipst ick Urobilinogen .2 Not Available [facility] ([facility]) [address] [place], [address], 04/02/2025 09:16:10 04/02/20 25 04/02/2025 urina lysis , dipst ick Protein 30 Not Available [facility] ([facility]) [address] [place], [address], 04/02/2025 09:16:10 04/02/20 25 04/02/2025 urina lysis , dipst ick pH 7.5 Not Available [facility] ([facility]) [address] [place], [address], 04/02/2025 09:16:10 04/02/20 25 04/02/2025 urina lysis , dipst ick Blood Negati ve Not Available [facility] ([facility]) [address] [place], [address], 04/02/2025 09:16:10 04/02/20 25 04/02/2025 urina lysis , dipst ick Specific [place] 1.020 Not Available [facility] ( [facility]) [address] [place], [address], 04/02/2025 09:16:10 04/02/20 25 04/02/2025 urina lysis , dipst ick Ketone Negati ve Not Available [facility] ([facility]) [address] [place], [address], 04/02/2025 09:16:10 04/02/20 25 04/02/2025 urina lysis , dipst ick Bilirubin Negati ve Not Available [facility] ([facility]) [address] [place], [address], 04/02/2025 09:16:10 04/02/20 25 04/02/2025 urina lysis , dipst ick Glucose Negati ve Not Available [facility] ([facility]) [address] [place], [address], 04/02/2025 09:16:10 04/02/2004/02/2025 urina lysis , dipst ick Appearance Clear Not Available [facility] ([facility]) [address] [place], [address], 04/02/2025 09:16:10 04/02/2004/02/2025 urina lysis , dipst ick Color Yellow Not Available [facility] ([facility]) [address] [place], [address], 04/02/2025 09:16:10 01/30/20 25 01/29/2025 CT, chest , w/ contr ast No observ ation record ed. [email or web address] [facility] [address] [place], [address], 01/30/2025 11:41:57 Result Notes None recorded. Problems Name Problem SNOMED Code Status Onset Date Resolution Date Notes Provider Name and Address Organization Details Recorded Time Hyperlip idemia 82664205 Active 2022 HYPERLIP IDEMIA ([facility]); Recorded 10/28/19 10:05AM by Juli Jose, Office Visit; Promoted ; acuity set as *; ALFA fernandes [facility] 5 08:19:31 Hyperten sive disorder 42440088 Completed 202210/27/2024 HYPERTEN DRISS, BENIGN (Working Diagn[facility]); Recorded 10/28/19 10:05AM by Juli Jose, Office Visit; Promoted ; acuity set as *; ALFA fernandes [facility] 5 08:19:09 Gastroes ophageal reflux disease 894599872 Active 2022 ESOPHAGE AL REFLUX; Recorded 10/28/19 10:05AM by Juli Jose, Office Visit; Promoted ; acuity set as *; ALFA fernandes [facility] 5 08:19:40 Type 2 diabetes mellitus without complica tion 897432182 Active 2022 DIABETES MELLITUS TYPE II, CONTROLL ED; Recorded 10/28/19 10:05AM by Juli Jose, Office Visit; Promoted ; acuity set as *; ALFA fernandes [facility] 5 08:19:19 Osteopor osis 16339242 Active 2022 OSTEOPOR OSIS; Recorded 10/28/19 10:05AM by Juli Jose, Office Visit; Promoted ; acuity set as *; ALFA fernandes [facility] 5 08:19:26 Nodule of lung 583856469 Active 2024 ALFA fernandes [facility] 5 10:46:04 Hypercho lesterol emia 40081188 Completed 202210/27/2024 ALFA CARBAJAL [facility] 5 08:19:09 Depressi ve disorder 66787074 Active 2022 ALFA CARBAJAL [facility] 5 08:19:45 [facility] hyperten driss 22251106 Active 2022 ALFA CARBAJAL [facility] 5 08:19:42 Hypergly cemia due to type 2 diabetes mellitus 19598776855 9109 Completed 202210/27/2024 [facility] 08:[facility]37 Problem Notes None recorded. Procedures Surgical History Date Name Laterality Status Provider Name and Address Organization Details Recorded Time 9 mammography completed [facility] 10/26/2024 13:07:52 7 colonoscopy completed [facility] 10/26/2024 13:07:30 2 bone density scan completed [facility] 10/26/2024 13:08:16 Gallbladder Surgery completed [place] On[place] [facility] 12/31/2023 15:54:41 Imaging Results None recorded. Procedure Notes None recorded. Medical Equipment None Reported. Allergies No known drug allergies Medications Name Sig Start Date Stop Date Status Note LastModified by Organization Details LastModified Time metformin 500 mg tablet Take 1 tablet twice a day by oral route. 02/21 completed Not Available Not Available Not Available atorvasta tin 80 mg tablet TAKE 1 TABLET BY MOUTH EVERY DAY active Not Available Not Available No t Available loperamid e 2 mg capsule TAKE 1 CAPSULE BY MOUTH FOUR TIMES DAILY NEEDED FOR LOOSE STOOLS 02/21 completed Not Available Not Available Not Available fluconazo le 150 mg tablet TAKE 1 TABLET BY MOUTH EVERY DAY FOR 1 DAY active Not Available Not Available No t Available citalopra m 10 mg tablet TAKE 1 TABLET BY MOUTH DAILY 12/18 completed Not Available Not Available Not Available sulfameth oxazole 800 mg-trimet hoprim 160 mg tablet TAKE 1 TABLET BY MOUTH EVERY 12 HOURS FOR 7 DAYS 07/26 completed Not Available Not Available Not Available citalopra m 20 mg tablet TAKE 1 TABLET BY MOUTH EVERY DAY active Not Available Not Available No t Available hydrocodo ne 7.5 mg-acetam inophen 325 mg tablet TAKE 1 TABLET EVERY 4 HOURS NEEDED FOR PAIN 12/30 completed Not Available Not Available Not Available metformin 1,000 mg tablet TAKE 1 TABLET BY MOUTH TWICE DAILY 2024 active Not Available Not Available Not Avai lable hydrochlo rothiazid e 25 mg tablet TAKE 1 TABLET BY MOUTH DAILY active Not Available Not Available No t Available furosemid e 20 mg tablet TAKE 1 TABLET BY MOUTH EVERY DAY FOR 10 DAYS 10/27 completed Not Available Not Available Not Available lisinopri l 40 mg tablet TAKE 1 TABLET BY MOUTH DAILY active Not Available Not Available No t Available fluticaso ne propionat e 50 mcg/actua tion nasal spray,kamilah pension [place] 2 sprays every day by intranas al route in the morning. active Not Available Not Available No t Available clotrimaz ole 1 % topical cream APPLY TOPICALL Y TO THE AFFECTED AND SURROUND ING AREAS TWICE DAILY IN THE MORNING AND IN THE EVENING active Not Available Not Available No t Available doxycycli ne hyclate 100 mg tablet Take 1 tablet twice a day by oral route for 10 days. 03/10 completed Not Available Not Available Not Available glipizide 5 mg tablet TAKE 1 TABLET BY MOUTH TWICE DAILY active Not Available Not Available No t Available amoxicill in 875 mg-potass ium clavulana te 125 mg tablet Take 1 tablet every 12 hours by oral route for 7 days. 10/18 completed Not Available Not Available Not Available aspirin QD active Not Available Not Avail able Not Available hydrochlo rothiazid e daily 12/30 completed cs/smf; 53622; Recorded 11/23/19 12:25PM by Farzana Cerda RN (Authori zed through Uvaldo Mcfadden DO), Refill Request; Refill Quantity : 0; Not Available Not Available Not Available lisinopri l daily 12/30 completed DOC RM/AV; 9; Recorded 11/20/19 4:09PM by Bibi fonseca (Authori zed through Quirino Nuñez MD), Annotati on/Adden dum; Refill Quantity : 0; Not Available Not Available Not Available metformin BID 12/30 completed DOC RM/AV; 9; Recorded 11/20/19 4:16PM by Bibi fonseca (Authori zed through Quirino Nuñez MD), Annotati on/Adden dum; Refill Quantity : 0; Not Available Not Available Not Available Januvia 100 mg tablet Take 1 tablet every day by oral route. 12/04 completed Not Available Not Available Not Available Accu-Chek Spirit Pouch daily 10/27 completed Not Available Not Available Not Available Accu-Chek FastClix Lancing Device kit ONE STICK DAILY 10/27 completed Not Available Not Available Not Available Accu-Chek Guide test strips USE 1 STRIP EVERY DAY DIRECTED TO CHECK BLOOD SUGAR active Not Available Not Available No t Available Accu-Chek Guide Glucose Meter USE KIT DAILY 2024 active Not Available Not Available Not Avai lable Accu-Chek Fastclix Lancet Drum USE DIRECTED active Not Available Not Available No t Available glipizide 2.5 mg tablet Take 1 tablet every day by oral route for 30 days. 11/10 completed Not Available Not Available Not Available Vitals Date Recorded Body height Body mass index (BMI) Body weight Oxygen saturation Oxygen saturation in Arterial blood by Pulse oximetry Heart rate Respiratory rate Body temperature Systolic And Diastolic Provider Name and Address Organization Details Last Updated DateTime 160.02 cm 34.2 kg/m2 31183.3 3 g 99 % 99 % 78 /min 18 /min 97.9 [degF] 130/80 mm[Hg] ALFA RAVEN [facility] 09:29:55 Date Recorded Body height Body mass index (BMI) Body weight Oxygen saturation Oxygen saturation in Arterial blood by Pulse oximetry Heart rate Respiratory rate Body temperature Systolic And Diastolic Provider Name and Address Organization Details Last Updated DateTime 160.02 cm 33.5 kg/m2 52353.9 6 g 98 % 98 % 68 /min 16 /min 98.6 [degF] 150/90 mm[Hg] Katherin Knight [facility] 15:30:00 Date Recorded Body height Body mass index (BMI) Body weight Body temperature Oxygen saturation Oxygen saturation in Arterial blood by Pulse oximetry Heart rate Systolic And Diastolic Provider Name and Address Organization Details Last Updated DateTime 160.02 cm 33.8 kg/m2 55073.1 4 g 97.2 [degF] 96 % 96 % 58 /min 140/68 mm[Hg] TONA JEFFRIES [facility] 5 16:01:59 Date Recorded Body height Heart rate Systolic And Diastolic Provider Name and Address Organization Details Last Updated DateTime 04/02/2025 160.02 cm 84 /min 174/60 mm[Hg] Kalani Jessica [facility] 04/02/2025 09:23:58 Social History Question Answer Notes LastModified by Organizat ion Details LastModified Time Tobacco Smoking Status Never Smoker FLORENCIA fernandes [facility] 01/18/2023 10:41:14 Are You Blind Or Do You Have Difficulty Seeing? No [email or web address] Information not available 01/18/2023 Are You Deaf Or Do You Have Serious Difficulty Hearing? No [email or web address] Information not available 01/18/2023 Have You Had Direct Contact, Or Contact During Intimacy, With Monkeypox Rash, Scabs, Or Body Fluids From A Person With Monkeypox? No Information not available 01/18/2023 What Was The Date Of Your Most Recent Tobacco Screening? 04/02/2025 [email or web address] Information not available 04/02/2025 What Is Your Relationship Status? [email or web address] Information not available 01/18/2023 Have You Recently Traveled Abroad? No [email or web address] Information not available 01/18/2023 Do You Have Difficulty Walking Or Climbing Stairs? No [email or web address] Information not available 01/18/2023 Sex: Unknown Functional Status Question Answer Note LastModified by Organizat ion Details LastModified Time Do you use any illicit or recreational drugs? No Information not available 03/28/2024 What is your level of alcohol consumption? None Information not available 03/28/2024 Are you able to walk? YESWOREST [email or web address] Information not available 01/18/2023 Do you have difficulty doing errands alone? No [email or web address] Information not available 01/18/2023 Are you able to care for yourself? Yes [email or web address] Information n ot available 01/18/2023 Do you have difficulty dressing or bathing? No [email or web address] Information not available 01/18/2023 Mental Status Question Answer Note LastModified by Organization D etails LastModified Time Do you have difficulty concentrating, remembering or making decisions? No [email or web address] Information no t available 01/18/2023 Family History Nothing Reported. Medical History Condition Response Coronary Artery Disease N Gout N Other N Blood Diseases N Kidney Stones N Hyperthyroidism N Blood Transfusion N Breast Cancer N Depression N COPD N Lung Disease N Hypothyroidism N Developmental or Behavioral Disorders N Defects or Inherited Disease N Breast Problem N Difficulty Swallowing N Anesthesia Complications N Anxiety Disorder N Meniere's disease N Muscle, Joint, or Bone Problems N Vision or Eye Problems N Arthritis N Polyps N Infertility N Cancer N Varicosities N Stroke N Endometriosis N Bladder or Kidney Problems N High Cholesterol N Liver Disease N Headaches N Fibromyalgia N Kidney Disease N Allergies/Hayfever N Heart Problems N Ear or Hearing Problems N Hospitalizations N Thyroid Problems N GI Problems N ADD/ADHD N Skin Problems N Eating Disorder N Anemia N Constipation N Mental Illness N Ovarian Cancer N Diabetes N Bedwetting N Seizures/Epilepsy N Tuberculosis N Eczema N Diverticulitis N Abuse/Domestic Violence N Asthma N Reflux/GERD N Hepatitis N Heart Disease N Pulmonary Embolism N Chronic Ear Infections N Pre-Eclampsia N Hypertension N Chicken Pox N Autism Spectrum Disorder (ASD) N Osteoporosis N Thrombophilias N Gynecological HistoryNo gynecological history recorded. Obstetrics History GPAL:G 0 P 0 0 0 0 Immunizations Vaccine Type Date Status Note Provider Nam e and Address Organization Details Recorded Time Influenza, high-dose, quadrivalent, PF [facility] 13:26:55 COVID-19, mRNA, LNP-S, PF, 100 mcg/0.5mL dose or 50 mcg/0.25mL dose 1 [facility] 03/28/2024 13:26:55 COVID-19, mRNA, LNP-S, PF, 100 mcg/0.5mL dose or 50 mcg/0.25mL dose 1 [facility] 03/28/2024 13:26:55 COVID-19, mRNA, LNP-S, PF, 100 mcg/0.5mL dose or 50 mcg/0.25mL dose 1 completed Estella Buenrostro [facility] 03/28/2024 13:26:55 pneumococcal polysaccharide PPV23 0 completed Estellachristian Buenrostro [facility] 03/28/2024 13:26:55 Pneumococcal conjugate PCV 13 9 completed Estella Buenrostro [facility] 03/28/2024 13:26:55 Influenza, high-dose, trivalent, PF 9 completed Estellachristian Buenrostro [facility] 03/28/2024 13:26:55 Influenza, split virus, trivalent, PF 0 completed Estellachristian Buenrostro [facility] 03/28/2024 13:26:55 Past Encounters Encounter ID Performer Location Encounter Start Date Encounter Closed Date Diagnosis/Indication Diagnosis SNOMED-CT Code Diagnosis ICD10 Code Diagnosis Note [id number] Uvaldo Mcfadden DO [facility] ([facility]) [address] [place] [address] 01/18/2023 10:10:42 01/18/2023 18:20:00 Hypercholesterolemia 15412096 E78.00 lipids controlled Depressive disorder 3548 9007 F32.A mood good Essential hypertension 07275737 I10 bp controlled Hyperglyce james due to type 2 diabetes mellitus 3306486493 40044 E11.65 a1c 7, up from 6.8 last timeshe will hold metformin a couple days while nauseous [id number] ARVIN FLORES [facility] ([facility]) [address] [place] [address] 04/08/2023 12:41:30 04/08/2023 14:43:47 Dyspnea 752996715 R06.00 Consulted with doctor director educational radio. Chest x-ray shows mild fluid. EKG showed no acute changes. Due to x-ray results and severity of SOB, will start lasix 20mg PO daily for 10 days. Encouraged patient to follow up with PCP next week. Will call with CMP and BNP results next week. Patient had no chest pain, dizziness, or light headedness today. Discussed with patient side effects of lasix and she should call us if any leg cramps, light headedness , or dizziness occurs. If patient develops chest pain, severe SOB, or severe dizziness, recommend going to ED. Patient and daughter verbalized understand ing. Reviewed past labs and imaging results. Patient did have a normal echo cardiogram 1 year ago. Will consider repeat echo if patient is not improving in 7-10 days. [id number] Uvaldo Mcfadden DO [facility] ([facility]) [address] [place] [address] 04/21/2023 15:35:14 04/21/2023 18:04:25 Hypervolemia 63166472 E87.70 Dyspnea on exertion 6084 5006 R06.09 [id number] Uvaldo Mcfadden DO [facility] ([facility]) [address] [place] [address] 07/19/2023 08:46:18 07/20/2023 18:52:54 Hyperglycemia due to type 2 diabetes mellitus 9637097339 73473 E11.65 a1c 7, up from 6.8 last timeshe will hold metformin a couple days while nauseous [id number] Uvaldo Mcfadden DO [facility] ([facility]) [address] [place] [address] 07/26/2023 10:25:14 07/26/2023 15:01:14 Type 2 diabetes mellitus without complication 111131054 E11.9 Hyperlipidemia 05438446 E78.5 Mixed anxi ety and depressive disorder 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 F41.8 Essential hypertension 21778698 I10 Type 2 shavonne betes mellitus 89030590 E11.9 [id number] Uvaldo Mcfadden DO [facility] [address] [place] [address] 08/30/2023 14:54:02 08/30/2023 15:56:28 Type 2 diabetes mellitus without complication 457525373 E11.9 Hyponatremia 15051077 E8 7.1 Lactic acidosis 69345876 E87.20 Type 2 shavonne betes mellitus 92688922 E11.9 [id number] SERENE ZUÑIGA [facility] ([facility]) [address] [place] [address] 12/31/2023 15:47:07 12/31/2023 16:19:06 Essential hypertension 48411386 I10 Discussed to continue daily meds as prescribed .Take blood pressure daily and log. Discussed to sit for 10 minutes with legs uncrossed prior to checking bp.F/u in ER if you develop cp, sob, or new symptoms develop. [id number] Uvaldo Mcfadden DO [facility] ([facility]) [address] [place] [address] 01/17/2024 08:44:44 01/18/2024 11:17:48 Essential hypertension 81011775 I10 Hypercholesterolemia 136 56802 E78.00 lipids controlled Hyperglyce james due to type 2 diabetes mellitus 5369402570 71611 E11.65 a1c 7, up from 6.8 last timeshe will hold metformin a couple days while nauseous Osteoporosis 41172552 M8 1.0 [id number] Uvaldo Mcfadden DO [facility] ([facility]) [address] [place] [address] 01/24/2024 09:49:05 01/24/2024 10:46:55 Type 2 diabetes mellitus without complication 040525815 E11.9 Essential hypertension 45053178 I10 [id number] SERENE ZUÑIGA [facility] ([facility]) [address] [place] [address] 03/28/2024 13:25:18 03/28/2024 16:42:24 Dysuria 72494042 R30.0 Acute urin jenna tract infection 842817823 N39.0 UA results reviewed and discussed with pt. We will start antibiotic s. Pt will increase oral fluids and can use cranberry. Return to office with no improvemen t or any problems. Go to ER with severe worsening or severe problems.W e will obtain urine culture [id number] Uvaldo Mcfadden DO [facility] ([facility]) [address] [place] [address] 07/19/2024 08:32:37 07/20/2024 10:21:58 Essential hypertension 80027520 I10 Hyperglyce james due to type 2 diabetes mellitus 0868637348 74808 E11.65 a1c 7, up from 6.8 last timeshe will hold metformin a couple days while nauseous [id number] Uvaldo Mcfadden DO [facility] ([facility]) [address] [place] [address] 07/26/2024 09:21:59 07/26/2024 09:52:02 Type 2 diabetes mellitus without complication 779699840 E11.9 Hypertensive disorder 38 497370 I10 Screening for malignant neoplasm of breast 824674309 Z12.39 Depressive disorder 3548 9007 F32.A mood good [id number] SERENE MCCLELLAN [facility] ([facility]) [address] [place] [address] 09/22/2024 10:02:19 09/22/2024 10:47:55 Acute maxillary sinusitis 22783869 J01.00 [id number] SERENE MCCLELLAN [facility] ([facility]) [address] [place] [address] 10/18/2024 10:59:01 10/18/2024 13:12:14 Fever 444917169 R50.9 Dyspnea on exertion 6084 5006 R06.09 Will send to ER for further evaluation and treatment. [id number] ARLETTE YOUNGBLOOD PA-C [facility] ([facility]) [address] [place] [address] 12/28/2024 09:17:29 12/28/2024 09:58:25 Type 2 diabetes mellitus without complication 875652769 E11.9 she has plenty at home she will start taking. no new rx sent infu in 3 months for repeat labs. Depressive disorder 2482 4547 F33.0 citalopram much improved since increasing her Citalopram from 10 to 20 mg. [id number] ARLETTE YOUNGBLOOD PA-C [facility] ([facility]) [address] [place] [address] 10/27/2024 10:57:26 10/27/2024 11:57:23 Type 2 diabetes mellitus 50148713 E11.9 7.1 A!C Nodule of lung 914787918 R91.1 Hypomagnesemia 392571153 E83.42 Depressive disorder 9678 9007 F33.0 citalopram Hyperlipidemia 35502731 E78.5 atorvastat in Essential hypertension 24430914 I10 lisinopril /hctz CCA form filled out during today's office visit Anemia 387510314 D64.9 Fe in hospital was 51. discharge Hgb was 9.4 Hospital i npatient stay within past 30 days 1556714114 106 Z76.89 medication s reconciled . records reviewed. stop januvia due to cost. switch to glipizide. [id number] ARLETTE YOUNGBLOOD PA-C [facility] ([facility]) [address] [place] [address] 12/05/2024 09:22:01 12/05/2024 10:27:07 Type 2 diabetes mellitus 35110821 E11.9 restart metformin 500mg po bid she has some at home. has f/u in 3 week. Mixed anxi ety and depressive disorder 385458666 F41.8 [id number] SERENE ZUÑIGA [facility] ([facility]) [address] [place] [address] 01/27/2025 15:22:29 01/27/2025 16:30:40 Dysuria 61680238 R30.0 No nitrates on urine dip. will send for culture. Discussed to push oral fluids, rest. If symptoms change/wor sen then return for re-evaluat ion. [id number] Lisette Hensley MD [facility] ([facility]) [address] [place] [address] 02/21/2025 15:53:53 02/22/2025 10:28:27 Infection of tick bite 737662278 W57.XXXA seems allergic but cannot rule out EM so will treat. [id number] SERENE MCCLELLAN [facility] ([facility]) [address] [place] [address] 04/02/2025 09:13:24 04/03/2025 09:16:36 Dysuria 16743797 R30.0 Candidiasis of vagina 72 769555 B37.31 Reviewed the various causes of vaginal discharge and vaginitis symptoms, including ( BV, yeast, others) causes. Reviewed good vulvar/vag inal hygiene and ways to reduce symptoms. Advised to call if treatment is not helpful or if symptoms persist or recur. Health Concerns Section Related Observation LastModified by Organization Detai ls LastModified Time None Recorded Concern Status LastModified by Organization Details LastModified Time None Recorded Advance Directives Directive None Recorded Payers Insurance Date Sequence Insurance Name Policy Number Policy Tellez Covered Member ID Tellez Member ID Guarantor Name 04/02/2025 2 [employer] - MEDICARE SELECT - PLAN F (MEDICARE SUPPLEMENT) Kenisha Lopez [id number] Kenisha Lopez 04/02/2025 1 [place] Kenisha Lopez [id number] Kenisha Lopez 04/02/2025 [employer] - [place] A - C-FQ (MEDICARE) Kenisha Lopez [id number] 1 Kenisha Lopez Notes Date Note Type Note Provider Name and Address Organization Details Recorded Time 12/28/2024 text/html Anxiety/Depressi onRe ported bypatient.Severity:d enies suicidal ideations; able to maintain relationships; does not interfere with activities of daily living; symptoms improved Duration:chronic Context:recent medical event; recent retired Modifying Factors:medications as directed; selective serotonin reuptake inhibitor (SSRI)DiabetesReport ed bypatient.Review finger sticks:fastin; pre lunch: 107; post lunch: Duration:chronic Control:treated with diet and oral medications; hemoglobin A1C has been 8-9; hemoglobin A1C goal is less than 6.5 Compliance:compliant with medications; compliant with follow-up visits Self Care:monitoring glucose daily; seeing eye doctor regularly; checking feet regularly; taking aspirin daily Associated Symptoms:no weight gain; no weight loss; no dizziness; no sweats; no headaches; no confusion; no increased thirst; no increased appetite; no increased urination; no blurred vision; no numbness of feet; no calluses on feet; no fatigue; no blurred vision; no paresthesias I used to be on metformin 1000mg bid and it worked good for me , I would like too see what Arlette thinks about going back to that. I realize I need to watch my diet better and am trying. My anxiety is much better with the increased dose. ARLETTE YOUNGBLOOD PA-C [address] [place], [address], [facility] 12/28/2024 09:57:06 01/27/2025 text/html walk in patientpatient is here today for a back ache and difficulty starting her urine stream this morning. Denies fever, nausea, abd pain, vomiting, diarrhea. No hx of recurrent UTIs. She took tylenol for her back ache that didn't help. Is eating/drinking normally with no change in symptoms. States after trying to push the urine out it did finally start and burned a little so she's concerned for a UTI. Blood sugar this morning was 139 SERENE ZUÑIGA [address] [place], [address], [facility] 01/27/2025 15:48:52 02/21/2025 text/html did pull and act ual tick offthought it was better but then today it seems to be worsening, getting more red Lisette Hensley MD [address] [place], [address], [facility], [place] 02/21/2025 16:23:57 04/02/2025 text/html walk inx 3 days urinary frequency, urgency, burning. wears discreet pads. Patient complains of vaginal itching and burning. PHAN YAÑEZ, DIRECTOR [employer] [address] [place], [address], [facility] 04/02/2025 19:07:11 OBGyn Episode No OBEpisode recorded.
--- NOTE | 2025-04-04 14:49 | ECG_ITS ---
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 Measurements Intervals [place] Rate: 102 P: 24 CT: 173 QRS: 8 QRSD: 110 T: 10 QT: 344 QTc: 449 Interpretive Statements SINUS TACHYCARDIA MINIMAL VOLTAGE CRITERIA FOR LVH, CONSIDER NORMAL VARIANT [MEETS CRITERIA IN ONE OF: R(aVL), S(V1), R(V5), R(V5/V6)+S(V1)] ANTERIOR MYOCARDIAL INFARCTION , PROBABLY OLD [40+ ms Q WAVE AND/OR ST/T ABNORMALITY IN V3/V4] INFERIOR MYOCARDIAL INFARCTION , PROBABLY OLD [40+ ms Q WAVE AND/OR ST/T ABNORMALITY IN II/aVF] Compared to ECG 10/18/2024 18:25:21 Myocardial infarct finding now present Sinus rhythm no longer present T-wave abnormality no longer present Electronically Signed On 04-04-2025 20:00:58 CDT by Sal Geller M.D. [email or web address] [id number]
[2025-04-04 15:09] LABS: Hematocrit 38.7 % (36-47); Hemoglobin 12.30 g/dL (11.27-16.99); Mean Corpuscular HGB Conc 31.8 g/dL (30-55); Mean Corpuscular Hemoglobin 25.8 pg (27-33); Mean Corpuscular Volume 81.3 fl (85-98); Nucleated Red Blood Cells % 0 %; Platelet Count 396 10^3/cmm (157-399); Red Blood Count 4.76 10^6/uL (3.85-5.65); White Blood Count 7.57 10^3/uL (3.29-11.43)
[2025-04-04 15:28] LABS: Troponin(5th) Baseline 9 ng/L (0-10)
[2025-04-04 15:32] LABS: Lactic Sepsis W/Reflex 4.1 mmol/L (0.5-2.2)
[2025-04-04 15:37] LABS: Alanine Aminotransferase 53 U/L (0-33); Albumin Level 4.4 g/dL (3.5-5.2); Alkaline Phosphatase 87 U/L (35-105); Anion Gap 23.9 (5-19); Aspartate Amino Transferase 66 U/L (0-32); Blood Urea Nitrogen 14 mg/dL (8-23); Calcium 9.0 mg/dL (8.5-10.5); Carbon Dioxide 19 mmol/L (22-29); Chloride 93 mmol/L (98-107); Creatinine Clr Calc Pharmacy 66.3239; Globulin 3.1 g/dL (1.3-4.6); Glucose 162 mg/dL (65-115); NT Pro B Type Natriuretic Pept 119 pg/mL (0-125); Osmolality Calculated 278 mOsm/kg (285-295); Potassium 3.9 mmol/L (3.5-5.1); Sodium 132 mmol/L (136-145); Total Protein 7.5 g/dL (6.6-8.7)
--- NOTE | 2025-04-04 15:57 | CTR_ITS ---
PROCEDURE INFORMATION: Exam: CT Chest Without Contrast; Diagnostic Exam date and time: 04/04/2025 4:45 PM Age: 74 years old Clinical indication: Shortness of breath and other: Weakness; Prior surgery; Surgery date: 6+ months; Surgery type: Gb; Additional info: Lactic acidosis weakness TECHNIQUE: Imaging protocol: Diagnostic computed tomography of the chest without contrast. Radiation optimization: All CT scans at this facility use at least one of these dose optimization techniques: automated exposure control; mA and/or kV adjustment per patient size (includes targeted exams where dose is matched to clinical indication); or iterative reconstruction. COMPARISON: CT chest w con* [id number] 01/29/2025 2:57 PM RADIATION DOSE METRICS: Total DLP (mGy-cm): 1006.57 FINDINGS: Lungs: There is a 1 cm rounded nodule involving upper lobe. Chronic interstitial coarsening involves both lung bases as well as the lingula of the left upper lobe. No acute infiltrate noted. Pleural spaces: Unremarkable. No pneumothorax. No pleural effusion. Heart: Unremarkable. No cardiomegaly. No pericardial effusion. Coronary arteries: Coronary artery calcifications are noted. Lymph nodes: Unremarkable. No enlarged lymph nodes. Vasculature: Unremarkable. No aortic aneurysm. Bones/joints: Unremarkable. No acute fracture. Soft tissues: Unremarkable. optional CT Chest at 12 months. (Reference: Ba) REFERENCES: Ba Early, et al. Guidelines for Management of Incidental Pulmonary Nodules Detected on CT Images: From the Fleischner Society 2017. Radiology. 2017;284(1):228-243. PROCEDURE INFORMATION: Exam: CT Abdomen And Pelvis Without Contrast Exam date and time: 04/04/2025 4:45 PM Age: 74 years old Clinical indication: Shortness of breath and other: Weakness; Prior surgery; Surgery date: 6+ months; Surgery type: Gb; Additional info: Lactic acidosis weakness TECHNIQUE: Imaging protocol: Computed tomography of the abdomen and pelvis without contrast. Radiation optimization: All CT scans at this facility use at least one of these dose optimization techniques: automated exposure control; mA and/or kV adjustment per patient size (includes targeted exams where dose is matched to clinical indication); or iterative reconstruction. COMPARISON: CT angio chest w abd pel w con 10/18/2024 2:29 PM RADIATION DOSE METRICS: Total DLP (mGy-cm): 1006.57 FINDINGS: Lungs: Lung bases are clear. No pleural effusion. Liver: Normal. No mass. Gallbladder and biliary ducts: The gallbladder has been resected. Pancreas: Normal. No ductal dilation. Spleen: Normal. No splenomegaly. Adrenal glands: Normal. No mass. Kidneys and ureters: 2 cm cyst involves the left kidney. Stomach and bowel: Unremarkable. No obstruction. No mucosal thickening. Appendix: No evidence of appendicitis. Intraperitoneal space: Unremarkable. No free air. No significant fluid collection. Vasculature: Unremarkable. No abdominal aortic aneurysm. Lymph nodes: Unremarkable. No enlarged lymph nodes. Urinary bladder: Unremarkable as visualized. Reproductive: Unremarkable as visualized. Bones/joints: Unremarkable. No acute fracture. Soft tissues: There is a small umbilical hernia containing mesenteric fat. CT/[place] [id number] IMPRESSION: 1. No acute findings. 2. Stable left lung nodule 3. For patients at low risk (minimal or absent history of smoking and of other known risk factors), no routine follow-up is indicated. For patients at high risk (history of smoking or of other known risk factors), consider IMPRESSION: 1. No acute findings. 2. A benign renal cyst or cysts have been detected. No further follow-up imaging is required. 3. Small umbilical hernia COMMENTS: Consistent with the [place] [employer]'s Incidental Findings Committee white paper (J Am Yolanda Radiol 2018): Any incidental renal lesion less than 1 cm or classified as too small to characterize, or any incidental cystic renal lesion characterized as simple-appearing, is likely benign. No follow-up imaging is recommended for these lesions per consensus recommendations based on imaging criteria.
[2025-04-04 16:07] LABS: Glucose Urine UA Negative (Normal); Nitrate Urine Negative (Negative); Specific Gravity, Urine 1.026 (1.005-1.030)
[2025-04-04 16:10] LABS: Add Urine Microscopic? YES
[2025-04-04 16:54] LABS: Reflex Lactate Order REFLEX LACTIC ORDERD
--- NOTE | 2025-04-04 17:04 | ECG_ITS ---
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 Measurements Intervals [place] Rate: 86 P: 22 FL: 176 QRS: 1 QRSD: 97 T: -9 QT: 379 QTc: 454 Interpretive Statements SINUS RHYTHM MINIMAL VOLTAGE CRITERIA FOR LVH, CONSIDER NORMAL VARIANT [MEETS CRITERIA IN ONE OF: R(aVL), S(V1), R(V5), R(V5/V6)+S(V1)] POSSIBLE ANTERIOR MYOCARDIAL INFARCTION , OF INDETERMINATE AGE [30 ms Q WAVE IN V3/V4, OR R < 0.2 mV IN V4] INFERIOR MYOCARDIAL INFARCTION , OF INDETERMINATE AGE [40+ ms Q WAVE AND/OR ST/T ABNORMALITY IN II/aVF]. diffuse nonspecific T wave changes Compared to ECG 04/04/2025 14:49:51 Sinus tachycardia no longer present Myocardial infarct finding still present Electronically Signed On 04-04-2025 20:21:04 CDT by Sal Geller M.D. [id number]
[2025-04-04 17:47] LABS: Troponin 5 2HR 10.15 ng/L (0-10); Troponin 5 2HR Delta 1.15 ABS# (0-10)
[2025-04-04 18:51] LABS: Lactic Acid level (Lactate) 2.8 mmol/L (0.5-2.2)
[2025-04-04] MEDS: cefTRIAXone 1,000 mg SDV 1000 MG IVP (19:03)
--- NOTE | 2025-04-04 19:28 | ED_ITS ---
HPI - SOB/Dyspnea 2 General: Chief Complaint: Shortness of Breath/Dyspnea Stated Complaint: confusion, SOB Time Seen by Provider: 04/04/25 14:55 History of Present Illness: HPI Narrative: Patient is a 74yo female who presented to the Emergency Department with complaints of increasing shortness of breath and generalized weakness. She states she had recently been seen by her PCP and was diagnosed with a yeast infection, for which she completed a dose of Diflucan. She reports feeling very hot and flushed earlier today. Patient had initially presented to the ER on Wednesday with similar symptoms, at which time she was evaluated for a possible UTI, but the results were not conclusive for a significant infection at that time. Today, she continues to feel unwell, prompting her return to the ED for further evaluation. Related Data Home Medications ?Medication ?Instructions ?Recorded ?Confirmed atorvastatin 80 mg tablet 80 mg PO QPM 10/31/20 hydrochlorothiazide 25 mg tablet 25 mg PO DAILY@0630 0 10/31/20 10/18/24 lisinopril 40 mg tablet 40 mg PO DAILY@0630 10/31/20 10/18/24 citalopram 10 mg tablet 10 mg PO DAILY@0630 02/19/21 10/18/24 fluticasone propionate 50 1 spray intranasal DAILY PRN 10/18/24 10/18/24 mcg/actuation nasal allergies spray,suspension Previous Rx's ?Medication ?Instructions ?Recorded loperamide 2 mg capsule 2 mg PO QID PRN loose stool #10 10/20/24 (Anti-Diarrheal (loperamide)) caps sitagliptin phosphate 100 mg 100 mg PO DAILY #30 tabs 10/20/24 tablet (Januvia) ciprofloxacin HCl 500 mg tablet 500 mg PO BID #14 tabs 04/04/25 fluconazole 150 mg tablet 150 mg PO DAILY PRN Yeast Infection 21 days #1 tab Allergies Allergy/AdvReac Type Severity Reaction Status Date / Time No Known Allergies Allergy Verified 04/04/25 14:54 [facility] ED 2 [facility]: Medical History (Updated 04/04/25 @ 19:30 by Geoffrey Rodgers MD) History of hyperlipidemia History of hypertension History of diabetes mellitus, type II Surgical History Status post laparoscopic cholecystectomy Family History Father CAD (coronary artery disease) Diabetes Social History Smoking and tobacco/nicotine status: never used tobacco/nicotine Alcohol intake: never Course 2 Vital Signs: Vital signs: Vital Signs Temperature 98.2 F 04/04/25 14:45 Pulse Rate 90 04/04/25 19:00 Respiratory Rate 16 04/04/25 19:00 Blood Pressure 154/99 04/04/25 19:00 Pulse Oximetry 95 04/04/25 19:00 Oxygen Delivery Me thod Room Air 04/04/25 19:00 MDM - SOB/Dyspnea Medical Decision Making ROS: Constitutional: Positive for generalized weakness, feeling hot and flushed. Respiratory: Positive for shortness of breath. Genitourinary: Recent history of yeast infection, possible urinary tract infection symptoms. All other systems reviewed and negative or noncontributory to the current presentation. MEDICATIONS AND ALLERGIES: Meds: Diabetic medication (specific type not specified), recently completed Diflucan for yeast infection Allergies: No known drug allergies PAST HISTORICAL DATA: PMH: Diabetes mellitus, recent yeast infection PSH: None specified Social: Not specified VITAL SIGNS: Initial: BP: 130/75 HR: 101 RR: 19 Temp: 98.2?F SpO2: 96% on room air Repeat: BP: 154/99 HR: 90 RR: 16 Temp: 98.2?F SpO2: 95% on room air PHYSICAL EXAM: General: Alert, non-toxic appearing, in no apparent distress HEENT: Head normocephalic and atraumatic. Mucous membranes moist. Neck: Supple Respiratory: No increased work of breathing, no wheezing Cardiac: Regular rate and rhythm, 2+ pulses in all extremities Abdomen: Soft, non-distended, no rebound or guarding Neuro: Cranial nerves grossly intact, no focal motor or sensory deficits noted Genitourinary: Not examined during this encounter INITIAL IMPRESSION AND PLAN: Given the history and presentation, the primary working diagnosis is urinary tract infection with possible sepsis given the elevated lactic acid. Additional considerations include metabolic derangement, pulmonary pathology, and intra- abdominal infection. Based on this initial impression I will order: 1. Laboratory studies including CBC, CMP, lactic acid, urinalysis, and troponin 2. Chest X-ray to evaluate for pulmonary pathology 3. CT scan of chest, abdomen, and pelvis to evaluate for source of infection or other pathology given elevated lactic acid 4. IV fluid resuscitation with 1 liter of crystalloid 5. IV antibiotics (Rocephin/ceftriaxone) for presumed UTI 6. Reassessment after interventions TEST INTERPRETATIONS: Laboratory Studies: - Initial lactic acid: 4.1 (elevated) - Repeat lactic acid after 1L IV fluids: 2.8 (improved but still elevated) - CBC: WBC 7.57 (normal), Hemoglobin 12.3 (normal) - Blood glucose: 162 mg/dL (elevated) - Chemistry: Mild anion gap acidosis, improved with IV fluids - Troponin: 10 (unremarkable) - Urinalysis: 11-20 WBCs with 1+ leukocyte esterase, consistent with UTI Imaging Studies: - Chest X-ray: No acute cardiopulmonary findings - CT chest: 1cm rounded nodule in upper lobe with chronic interstitial coarsening in both lungs and left upper lobe. No acute infiltrate. Stable left lung nodule requiring follow-up CT as outpatient. - CT abdomen/pelvis: Benign renal cyst, small umbilical hernia, no acute findings EKG: Sinus rhythm with rate of [address] elevation or depressions. CONSIDERED BUT NOT PERFORMED: Admission for IV antibiotics considered but not done due to significant clinical improvement after initial treatment, normal white blood cell count, and improving lactic acid level. FINAL IMPRESSION: Based on all the above, my clinical impression is most compatible with urinary tract infection with transient lactic acidosis that improved with fluid resuscitation. Incidental findings include stable left lung nodule requiring outpatient follow-up, benign renal cyst, and small umbilical hernia. The clinical picture is not currently suggestive of pneumonia, septic shock, or acute intra-abdominal pathology. Although other conditions were also considered, they were deemed unlikely based on the clinical information available. CLINICAL DISPOSITION: The patient's current condition is stable in my estimation and the most appropriate and indicated disposition at this time is discharge home with oral antibiotics and close follow-up. The patient is safe for discharge home as she has demonstrated significant clinical improvement after IV fluids and initial antibiotic therapy. Her vital signs have normalized, lactic acid has improved, and she subjectively reports feeling much better. She has no evidence of severe infection or sepsis requiring inpatient management. The patient has a scheduled follow-up with her primary care physician in a couple of weeks, which is appropriate timing for reassessment of her condition and review of the incidental findings on imaging. RISK STRATIFICATION AND CLINICAL DECISION RULES APPLIED: Sepsis criteria assessment: Patient initially presented with tachycardia (HR 101) and tachypnea (RR 19) meeting 2 SIRS criteria, with elevated lactic acid of 4.1 and suspected UTI. After fluid resuscitation, vital signs normalized and lactic acid decreased to 2.8, indicating good response to initial therapy. This supports outpatient management with oral antibiotics rather than inpatient admission. CASE SUMMARY: Female patient with diabetes presented with shortness of breath and generalized weakness after recent treatment for yeast infection. Initial evaluation revealed tachycardia, elevated lactic acid (4.1), and urinalysis consistent with UTI. Patient received 1L IV fluids and IV Rocephin with significant clinical improvement. Repeat lactic acid decreased to 2.8. Comprehensive imaging including CT chest/abdomen/pelvis showed no acute pathology requiring immediate intervention, though incidental findings included a stable lung nodule requiring outpatient follow-up. Patient's symptoms resolved with treatment, and she was discharged home with oral ciprofloxacin for 7 days and prophylactic Diflucan if needed for recurrent yeast infection. Patient instructed to follow up with PCP in 2 weeks as previously scheduled and to return to ED for worsening symptoms. SEPSIS COMPLIANCE: I have performed the sepsis fluid reassessment at 2025-04-04 19:04:24. Sepsis: SIRS 2 (tachycardia, tachypnea), suspected UTI, lactic 4.1. Antibiotics (Rocephin) at 19:00. 1L fluid bolus given at 18:50; Reperfusion assessment at 19:10: Improved vital signs, decreased lactic acid to 2.8. CMS compliant. Lab Data I reviewed the patient's lab results. 04/04/25 15:02 04/04/25 15:02 Labs/Radiology: Radiology Impressions Chest X-Ray 04/04/25 14:41 IMPRESSION: 1. No acute cardiopulmonary finding. Chest/Abdomen/Pelvis CT 04/04/25 15:57 IMPRESSION: 1. No acute findings. 2. Stable left lung nodule 3. For patients at low risk (minimal or absent history of smoking and of other known risk factors), no routine follow-up is indicated. For patients at high risk (history of smoking or of other known risk factors), consider IMPRESSION: 1. No acute findings. 2. A benign renal cyst or cysts have been detected. No further follow-up imaging is required. 3. Small umbilical hernia COMMENTS: Consistent with the [employer]'s Incidental Findings Committee white paper (J Am Yolanda Radiol 2018): Any incidental renal lesion less than 1 cm or classified as too small to characterize, or any incidental cystic renal lesion characterized as simple-appearing, is likely benign. No follow-up imaging is recommended for these lesions per consensus recommendations based on imaging criteria. Laboratory Results WBC 7.57 10^3/uL (3.29-11.43) 04/04/25 15:02 RBC 4.76 10^6/uL (3.85-5.65) 04/04/25 15:02 Hgb 12.30 g/dL (11.27-16.99) 04/04/25 15:02 Hct 38.7 % (36-47) 04/04/25 15:02 MCV 81.3 fl (85-98) L 04/04/25 15:02 MCH 25.8 pg (27-33) L 04/04/25 15:02 MCHC 31.8 g/dL (30-55) 04/04/25 15:02 RDW 14.6 % (12.1-15.1) 04/04/25 15:02 Plt Count 396 10^3/cmm (157-399) 04/04/25 15:02 MPV 9.7 fL (7.4-10.4) 04/04/25 15:02 Neut % (Auto) 60.2 % 04/04/25 15:02 Lymph % (Auto) 24.7 % 04/04/25 15:02 Fergus % (Auto) 13.1 % 04/04/25 15:02 Eos % (Auto) 0.7 % 04/04/25 15:02 Baso % (Auto) 0.8 % 04/04/25 15:02 Neut # (Auto) 4.56 10^3/uL (1.8-7.7) 04/04/25 15:02 Lymph # (Auto) 1.9 10^3/uL (0.8-4.8) 04/04/25 15:02 Fergus # (Auto) 1.0 10^3/uL (0.2-0.9) H 04/04/25 15:02 Eos # (Auto) 0.1 10^3/uL (0.0-0.8) 04/04/25 15:02 Baso # (Auto) 0.1 10^3/uL (0.0-0.1) 04/04/25 15:02 Nucleated RBC % (auto) 0 % 04/04/25 15:02 Nucleated RBCs # 0.0 /100WBC 04/04/25 15:02 D-Dimer 0.42 ug/mLFEU (0-0.59) 04/04/25 15:02 Sodium 132 mmol/L (136-145) L 04/04/25 15:02 Potassium 3.9 mmol/L (3.5-5.1) 04/04/25 15:02 Chloride 93 mmol/L (98-107) L 04/04/25 15:02 Carbon Dioxide 19 mmol/L (22-29) L 04/04/25 15:02 Anion Gap 23.9 (5-19) H 04/04/25 15:02 BUN 14 mg/dL (8-23) 04/04/25 15:02 Creatinine 0.7 mg/dL (0.5-0.9) 04/04/25 15:02 GFR Calculation Not Reportable 04/04/25 15:02 Glucose 162 mg/dL (65-115) H 04/04/25 15:02 Calculated Osmolality 278 mOsm/kg (285-295) L 04/04/25 15:02 Lactic Acid 4.1 mmol/L (0.5-2.2) H* 04/04/25 15:02 Lactic Acid (Sepsis) 2.8 mmol/L (0.5-2.2) H 04/04/25 18:07 Calcium 9.0 mg/dL (8.5-10.5) 04/04/25 15:02 Total Bilirubin 0.2 mg/dL (0.15-1.2) 04/04/25 15:02 AST 66 U/L (0-32) H 04/04/25 15:02 ALT 53 U/L (0-33) H 04/04/25 15:02 Alkaline Phosphatase 87 U/L (35-105) 04/04/25 15:02 Troponin T Baseline 9 ng/L (0-10) 04/04/25 15:02 Troponin T 120 Minute 10.15 ng/L (0-10) H 04/04/25 17:00 Delta Troponin T 1.15 ABS# (0-10) 04/04/25 17:00 NT-Pro-B Natriuret Pep 119 pg/mL (0-125) 04/04/25 15:02 Total Protein 7.5 g/dL (6.6-8.7) 04/04/25 15:02 Albumin 4.4 g/dL (3.5-5.2) 04/04/25 15:02 Globulin 3.1 g/dL (1.3-4.6) 04/04/25 15:02 Urine Color Yellow (Yellow) 04/04/25 16:00 Urine Appearance Clear (CLEAR) 04/04/25 16:00 Urine pH 5.5 (5-7) 04/04/25 16:00 Ur Specific Otley 1.026 (1.005-1.030) 04/04/25 16:00 Urine Protein 1+ (Negative) A 04/04/25 16:00 Urine Glucose (UA) Negative (Normal) 04/04/25 16:00 Urine Ketones Trace (Negative) 04/04/25 16:00 Urine Blood Negative (Negative) 04/04/25 16:00 Urine Nitrate Negative (Negative) 04/04/25 16:00 Urine Bilirubin Negative (Negative) 04/04/25 16:00 Urine Urobilinogen 1.0 mg/dL (Negative) 04/04/25 16:00 Ur Leukocyte Esterase 1+ (Negative) A 04/04/25 16:00 Urine RBC 6-10 /hpf (0-2) 04/04/25 16:00 Urine WBC 11-20 /hpf (0-5) H 04/04/25 16:00 Ur Squamous Epith Cells 0-5 /hpf (0-5) 04/04/25 16:00 Amorphous Sediment Not Reportable 04/04/25 16:00 Urine Bacteria None seen /hpf (NONE) 04/04/25 16:00 Hyaline Casts 0.40 /lpf 04/04/25 16:00 All radiology interpretation(s) finalized by discharge Discharge Plan Discharge Patient Disposition: Home Clinical Impression: Elevated lactic acid level, Acute UTI Condition: Stable Prescriptions: New ciprofloxacin HCl 500 mg tablet 500 mg PO BID Qty: 14 0RF fluconazole 150 mg tablet 150 mg PO DAILY PRN (Reason: Yeast Infection) 21 Days Qty: 1 0RF No Action atorvastatin 80 mg tablet 80 mg PO QPM hydrochlorothiazide 25 mg tablet 25 mg PO DAILY@0630 lisinopril 40 mg tablet 40 mg PO DAILY@0630 citalopram 10 mg tablet 10 mg PO DAILY@0630 fluticasone propionate 50 mcg/actuation spray,suspension 1 spray INTRANASAL DAILY PRN (Reason: allergies) Januvia 100 mg tablet 100 mg PO DAILY Qty: 30 0RF loperamide [Anti-Diarrheal (loperamide)] 2 mg capsule 2 mg PO QID PRN (Reason: loose stool) Qty: 10 0RF Discharge Orders: Discharge ED (Routine); Ordered 04/04/25 Ordered By: Geoffrey Rodgers Referrals: Arlette Trujillo PA [Primary Care Provider, [facility]] Discharge Diet: Advance as tolerated Discharge Activity: Increase activity as tolerated Patient Instructions: Urinary Tract Infection in Women (DC), Opioid Safety, Pain Management, Patient Portal & Sherry Instructions Activity Restrictions/Additional Instructions: Medications: 1. Ciprofloxacin 500mg - Take 1 tablet by mouth twice daily for 7 days 2. Diflucan 150mg - Take 1 tablet by mouth as a single dose if you develop symptoms of a yeast infection (itching, irritation, abnormal discharge) Follow-up: 1. Follow up with your primary care physician as scheduled in 2 weeks 2. Your doctor will need to arrange a repeat CT scan to follow up on the lung nodule found incidentally Return to the Emergency Department immediately if you experience: - Fever greater than 101?F - Worsening shortness of breath - Severe abdominal or back pain - Inability to keep fluids down - Worsening weakness or dizziness - Blood in your urine Home Care Instructions: 1. Drink plenty of fluids (at least 8-10 glasses of water daily) 2. Complete the entire course of antibiotics even if you feel better 3. Monitor your blood sugar levels as antibiotics may affect your diabetes control 4. Rest as needed but maintain normal activity as tolerated Print Language: Romansh Coding Level of Care Code ED Chha for Nilton Mckeon
== END 2025-04-04 19:52 | disposition home or self-care (01) ==
PROVIDERS: Emergency Medicine; Emergency Provider Student in an Organized Health Care Education/Training Program; PCP Physician Assistant
DX: N39.0 Urinary tract infection, site not specified (principal); R74.01 Elevation of levels of liver transaminase levels; E78.5 Hyperlipidemia, unspecified; E11.9 Type 2 diabetes mellitus without complications; I10 Essential (primary) hypertension
CPT/HCPCS: 36415; 71045; 71250; 74176; 80053; 81001; 83605; 83880; 84484; 85025; 85378; 93005; 96361; 96374; 99285; J0696; J7030

== ENCOUNTER 2025-08-21 10:21 | Outpatient (CLI) | payer MEDICARE, OTHER, SELFPAY ==
--- NOTE | 2025-08-21 10:27 | CTR_ITS ---
PROCEDURE INFORMATION: Exam: CT Chest With Contrast; Diagnostic Exam date and time: 08/21/2025 11:16 AM Age: 75 years old Clinical indication: Condition or disease; Lung condition and disease; Pulmonary nodule, solitary; Prior surgery; Surgery date: 6+ months; Surgery type: Gb; Additional info: Left pulmonary nodule TECHNIQUE: Imaging protocol: Diagnostic computed tomography of the chest with contrast. Radiation optimization: All CT scans at this facility use at least one of these dose optimization techniques: automated exposure control; mA and/or kV adjustment per patient size (includes targeted exams where dose is matched to clinical indication); or iterative reconstruction. Contrast material: OMNI 350; Contrast volume: 100 ml; Contrast route: INTRAVENOUS (IV); COMPARISON: [place] [id number] 04/04/2025 4:45 PM RADIATION DOSE METRICS: Total DLP (mGy-cm): 425.49 FINDINGS: Lungs: There is a 9 mm left upper lobe pulmonary nodule, image 21 series 5. This was previously 9 mm. Mild reticular changes in the lung bases, nonspecific. No new or progressive pulmonary nodule or mass. Pleural spaces: Unremarkable. No pneumothorax. No pleural effusion. Heart: Unremarkable. No cardiomegaly. No pericardial effusion. Coronary arteries: There are mild coronary artery calcifications. Lymph nodes: No new or progressive lymphadenopathy. Vasculature: Central pulmonary arteries are patent. Moderate atherosclerotic disease to include of the aorta is evident. Diaphragm: A small hiatal hernia is present. Liver: Mild hepatic steatosis is suspected. Gallbladder and biliary ducts: Prior cholecystectomy. No suspicious biliary dilatation. Bones/joints: There are mild degenerative changes throughout the visible areas of the spine. Soft tissues: Unremarkable. CT/CT chest w con* [id number] IMPRESSION: Stable appearance of a solid noncalcified 9 mm left upper lobe pulmonary nodule. Continued surveillance is recommended. For both low risk and high risk patients, consider CT Chest at 3 months, PET/CT, or biopsy. (Reference: Ba) References: jannie Danielle al. Guidelines for Management of Incidental Pulmonary Nodules Detected on CT Images: From the Fleischner Society 2017. Radiology. 2017;284(1):228-243.
[2025-08-21] MEDS: iohexol 350 mg/mL 500 mL Btl (per mL) IV (11:21)
== END 2025-08-21 10:22 | disposition home or self-care (01) ==
LOC: RAD 10:22
PROVIDERS: PCP Physician Assistant; Visit Provider Physician Assistant
DX: R91.1 Solitary pulmonary nodule (principal); I25.10 Atherosclerotic heart disease of native coronary artery without angina pectoris; K44.9 Diaphragmatic hernia without obstruction or gangrene; I70.0 Atherosclerosis of aorta; Z90.49 Acquired absence of other specified parts of digestive tract; R93.7 Abnormal findings on diagnostic imaging of other parts of musculoskeletal system
CPT/HCPCS: 71260